=== PATIENT | female | born 1955 | race African-American/Black ===

== ENCOUNTER 2016-05-03 17:22 | Emergency (ER) | payer OTHER ==
[~2016-05-03] VITALS: Ht 162.6 cm; Wt 104.3 kg
[~2016-05-03 17:22] MED LIST: AMITRIPTYLINE100 M2 PO; BACTRIM DS 8001 TAB PO; CIPROFLOXACIN500 MG PO; CYMBALTA 30 MG30 MG PO; FLEXERIL 5MG TAB5 MG PO; IBUPROFEN600 M1 PO; INDOMETHACIN50 M1 PO; KEFLEX500 MG PO; LIDODERM 5% PAT1 PAT TOP; LISINOPRIL10 MG PO; LISINOPRIL40 M1 PO; LORAZEPAM0.5 MG PO; METFORMIN HCL500 M3 PO; METFORMIN1000 MG PO; MOBIC 15MG15 MG PO; NEURONTIN300 MG PO; NEXIUM40 M1 PO; NORVASC5 M1 PO; OXYCODONE HCL5 M1 PO; PANTOPRAZOLE SO40 MG PO; PAXIL20 MG PO; PERCOCET 5-3251 EACH PO; PREDNISONE20 M1 PO; PRILOSEC40 MG PO; PROAIR HFA0.09 MG/Ac PO; PROAIR HFA8.5 GM INH; ROXICODONE5 MG PO; TEMAZEPAM30 MG PO; TRAMADOL50 MG PO; ZYPREXA2.5 MG PO
[2016-05-03] MEDS ORDERED: LORAZEPAM0.5 M1 PO (18:17)
[2016-05-03] MEDS ORDERED: JANUVIA25 M1 PO (18:17)
[2016-05-03] MEDS ORDERED: PRAVASTATIN SOD20 M2 PO (18:17)
[2016-05-03] MEDS ORDERED: VITAMIN D2000 UNI1 PO (18:17)
--- NOTE | 2016-05-03 18:48 | ED GENERAL ADULT ---
History of Present Illness General Chief Complaint: General Adult Stated Complaint: CHEST PAIN,CHEST CONGESTION,BODY PAIN Source: patient Exam Limitations: no limitations Vital Signs & Intake/Output Vital Signs & Intake/Output Vital Signs Date Time Temp Pulse Resp B/P Pulse O2 O2 Flow FiO2 Ox Delivery Rate 05/037 97.2 75 18 178/81 98 Room Air 05/03 2126 97.6 75 18 150/82 100 Room Air 05/03 1938 97.0 82 18 150/82 98 Room Air 05/03 1926 Room Air 05/03 1736 180/110 05/03 1735 97.9 90 22 178/100 96 Room Air Allergies Coded Allergies: fentanyl (Intermediate, RASH 01/19/16) Reconcile Medications Albuterol Sulfate (Proair Hfa) 8.5 GM HFA.AER.AD RESPIRATORY (Reported) AMITRIPTYLINE HCL (Amitriptyline HCl) 100 MG TAB 100 MG PO QHS DEPRESSION ( Reported) Amlodipine (Norvasc 5MG Tab) 5 MG TAB 1 TAB PO DAILY HTN (Reported) Cholecalciferol (Vitamin D3) (Vitamin D) 2,000 UNIT TABLET 1 TAB PO DAILY SUPPLEMENT (Reported) Esomeprazole (Nexium) 40 MG CAP 1 CAP PO DAILY GI (Reported) Indomethacin 50 MG CAPSULE 1 CAP PO PRN UNKNOWN (Reported) with food Lisinopril 40 MG TAB 1 TAB PO DAILY BLOOD PRESSURE (Reported) Lorazepam 0.5 MG TABLET 1 TAB PO QPM SLEEP/ANXIETY (Reported) Metformin Hydrochloride (Metformin HCl) 500 MG TAB 1 TAB PO DAILY DIABETES ( Reported) Pravastatin Sodium 20 MG TABLET 1 TAB PO DAILY CHOLESTEROL (Reported) Sitagliptin Phosphate (Januvia) 25 MG TABLET 1 TAB PO DAILY DM (Reported) Triage Note: PT STATES HE HAS PAIN ALL OVER THAT STARTED ABOUT 3 DAYS AGO. Triage Nurses Notes Reviewed? yes Onset: Abrupt Duration: day(s): (4) Timing: recent history Injury Environment: home Severity: moderate Modifying Factors: Worsens With: movement, other (TOUCH). Associated Symptoms: CHEST PAIN, BACK PAIN HPI: This is a 61-year-old female presents to the ER with chief complaint of 4 day history of neck pain, back pain, chest pain. She states any where she took Duricef it hurts. Complains of some shortness of breath with exertion. Denies any fever or chills. Denies any sick contacts. History of hypertension and diabetes. Patient found to be hypertensive in triage. She states she is compliant with her medications. She has not tried anything at home for pain. She is on chronic amitriptyline for neuropathy. (ROXANN FUENTES MD) Past History Travel History Traveled to [place] past 21 day No Medical History Any Pertinent Medical History? 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 No (ROXANN FUENTES MD) Review of Systems Review of Systems Constitutional: Denies: chills, fever. EENTM: Reports: no symptoms. Respiratory: Denies: cough, short of breath, sputum production. Cardiovascular: Reports: chest pain. Denies: palpitations. GI: Reports: no symptoms. Genitourinary: Reports: no symptoms. Musculoskeletal: Reports: back pain. Skin: Reports: no symptoms. Neurological/Psychological: Reports: anxiety. Hematologic/Endocrine: Denies: bruising, bleeding, polyuria, polydipsia. Immunologic/Allergic: Denies: splenectomy. All Other Systems: Reviewed and Negative (ROXANN FUENTES MD) Physical Exam Physical Exam General Appearance: well developed/nourished, no apparent distress, alert, awake , mild distress, obese Head: atraumatic, normal appearance Eyes: Bilateral: normal appearance, PERRL, EOMI. Ears, Nose, Throat: normal pharynx Neck: normal inspection, supple, full range of motion Respiratory: normal breath sounds, no respiratory distress, CHEST TENDER TO PALPATION Cardiovascular: regular rate/rhythm Peripheral Pulses: 2+ radial (R), 2+ radial (L) Gastrointestinal: normal bowel sounds Neurologic/Psych: awake, alert, oriented x 3 Skin: intact, normal color, warm/dry Core Measures ACS in differential dx? Yes CVA/TIA Diagnosis: No Severe Sepsis Present: No Septic Shock Present: No (ROXANN FUENTES MD) Progress Differential Diagnoses I considered the following diagnoses in my evaluation of the patient: [INFLUENZA , AMI, ACS, PE, VIRAL SYNDROME, RHABDO] Plan of Care: Orders Procedure Date/time Status TROPONIN LEVEL 05/03 1846 Complete WESTERGREN SED RATE 05/03 1846 Complete D-DIMER 05/03 1846 Complete COMPREHENSIVE METABOLIC PANEL 05/03 1846 Complete CREATINE PHOSPHOKINASE 05/03 1846 Complete CBC WITHOUT DIFFERENTIAL 05/03 1846 Complete RAPID VIRAL INFLUENZA A 05/03 175 Complete EKG 05/03 172 Active Laboratory Tests 05/03/161911: Anion Gap 9, Estimated GFR > 60, BUN/Creatinine Ratio 14.4, Glucose 81, Calcium 9.8, Total Bilirubin 0.4, AST 22, ALT 27, Alkaline Phosphatase 63, Creatine Kinase 177 H, Troponin I 0.01, Total Protein 7.1, Albumin 4.0, Globulin 3.1, Albumin/Globulin Ratio 1.3 05/03/161846: D-Dimer 694 H, CBC w Diff NO MAN DIFF REQ, RBC 3.56 L, MCV 87.9, MCH 29.1, RDW 14.6 H, MPV 9.3, Gran % 46.7, Lymphocytes % 42.7, Monocytes % 8.8, Eosinophils % 1.0, Basophils % 0.8, Absolute Granulocytes 3.3, Absolute Lymphocytes 3.0, Absolute Monocytes 0.6, Absolute Eosinophils 0.1, Absolute Basophils 0.1, PUBS MCHC 33.1, ESR Westergren 47 H Initial ED EKG: NSR Hand-Off Endorsed To: BRITTANI ALMAGUER MD Endorsed Time: 1899 Pending: labs, other (REEVALUATION) (ROXANN FUENTES MD) Differential Diagnoses I considered the following diagnoses in my evaluation of the patient: Diagnostic Imaging: Viewed by Me: Radiology Read. Discussed w/RAD: Radiology Read. CXR Impression: Suboptimal exam. Findings suggestive of left lower lobe airspace disease. (BRITTANI ALMAGUER MD) Departure Departure Condition: Stable Referrals: SHARIF PASTOR (PCP/Family) Departure Forms: Customer Survey General Discharge Information (ROXANN FUENTES MD) Departure Time of Disposition: 2253 Disposition: HOME OR SELF CARE Clinical Impression Primary Impression: Pneumonia Qualifiers: Pneumonia type: due to unspecified organism Laterality: left Lung location: lower lobe of lung Qualified Code: J18.1 - Lobar pneumonia, unspecified organism Secondary Impressions: Musculoskeletal pain Prescriptions: Current Visit Scripts Azithromycin (Zithromax) 1 TAB PO DAILY #4 TAB Prednisone 1 TAB PO BID #10 TAB Tramadol HCl (Ultram) 1-2 TAB PO Q6PRN PRN severe pain #30 TAB Baclofen 1 TAB PO TIDPRN PRN muscle spasm/strain #30 TAB (ROSINA RADFORD,BRITTANI) Critical Care Note Critical Care Note Critical Care Time: non-applicable (ALFREDO RADFORD,ROXANN)
[2016-05-03 19:21] LABS: ABSOLUTE BASOPHIL COUNT 0.1 /CUMM (0.0-0.2); ABSOLUTE EOSINOPHIL COUNT 0.1 /CUMM (0.0-0.7); ABSOLUTE GRANULOCYTE CT 3.3 /CUMM (1.4-6.5); ABSOLUTE MONOCYTE COUNT 0.6 /CUMM (0.10-0.60); BASOPHIL % 0.8 % (0.0-2.0); GRANULOCYTE % 46.7 % (42.2-75.2); HEMATOCRIT 31.3 % (37-47); MEAN CORPUSCULAR HGB 29.1 PG (27.0-31.0); MEAN CORPUSCULAR HGB CONC 33.1 G/DL (33.0-37.0); MEAN CORPUSCULAR VOLUME 87.9 FL (81.0-99.0); MEAN PLATELET VOLUME 9.3 FL (7.4-10.4); PLATELET COUNT 172 /CUMM (130-400); RBC DISTRIBUTION WIDTH 14.6 % (11.5-14.5); RED BLOOD CELL CT 3.56 /CUMM (4.20-5.40)
--- NOTE | 2016-05-03 22:52 | RADIOLOGY REPORT ---
EXAMINATION: XR CHEST CLINICAL INFORMATION: Fever, chest pain COMPARISON: April 04, 2015 chest x-ray TECHNIQUE: 2 views of the chest were obtained. FINDINGS: The cardiomediastinal silhouette is normal. Evaluation of pulmonary parenchyma is limited on frontal view due to presence of motion artifact. There is suggestion of retrocardiac/left lung base airspace disease. No pleural effusions or pneumothorax. Partial visualization of lower cervical spine postsurgical changes. IMPRESSION: Suboptimal exam. Findings suggestive of left lower lobe airspace disease. Clinical correlation for pneumonia is suggested. Consider repeat PA chest x-ray.
[2016-05-03 22:57] VITALS: BP 178/81
[2016-05-03] MEDS ORDERED: ULTRAM50 M1 PO (22:58)
[2016-05-03] MEDS ORDERED: PREDNISONE20 M1 PO (22:58)
[2016-05-03] MEDS ORDERED: ZITHROMAX250 M2 PO (22:58)
[2016-05-03] MEDS ORDERED: BACLOFEN10 M1 PO (22:58)
== END 2016-05-03 23:19 ==
LOC: ERH 17:22
PROVIDERS: Emergency Medicine
DX: R07.9 Chest pain, unspecified (principal); J18.9 Pneumonia, unspecified organism
CPT/HCPCS: 87804; 87804-59; 93005; 93010; 96372; J1885

== ENCOUNTER 2016-05-12 19:25 | Inpatient (IN) | payer OTHER ==
[~2016-05-12] VITALS: Ht 162.6 cm; Wt 106.6 kg
[~2016-05-12 19:25] MED LIST changes: +BACLOFEN10 M1 PO; +JANUVIA25 M1 PO; +LORAZEPAM0.5 M1 PO; +PRAVASTATIN SOD20 M2 PO; +ULTRAM50 M1 PO; +VITAMIN D2000 UNI1 PO; +ZITHROMAX250 M2 PO
--- NOTE | 2016-05-12 19:27 | NUR ---
INFORMED WAITING PERFORMED.
--- NOTE | 2016-05-12 19:54 | NUR ---
PT TO ED FOR DIZZINESS, CHEST PAIN, PALPITATIONS AND SOB X 2 DAYS. ALSO C/O CHRONIC L KNEE PAIN.
--- NOTE | 2016-05-12 19:55 | NUR ---
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 PT TO GO TO ROOM 2 SHORTLY.
--- NOTE | 2016-05-12 20:18 | NUR ---
IV ACCESS ESTABLISHED, #[address] DAUGHERTY AT BEDSIDE IVF N/S INFUSION INITIATED PER ORDERS
--- NOTE | 2016-05-12 20:21 | ED GI/GU/ABDOMINAL COMPLAINT ---
History of Present Illness General Chief Complaint: General Adult Stated Complaint: LIGHTHEADED,DIZZINESS, SEEING SPOTS X TODAY Source: patient, family, old records Exam Limitations: no limitations Vital Signs & Intake/Output Vital Signs & Intake/Output Vital Signs Date Time Temp Pulse Resp B/P Pulse O2 O2 Flow FiO2 Ox Delivery Rate 05/12 2335 98.5 95 20 133/70 95 Room Air 05/121 97.7 85 18 100/70 96 Room Air 05/12 2106 87 102/60 05/12 2038 104/64 05/12 2024 114/57 05/12 2024 91 18 100/62 96 Room Air 05/12 2013 96 Room Air Room Air 05/12 1942 96.5 95 18 78/56 97 Room Air Allergies Coded Allergies: fentanyl (Intermediate, RASH 01/19/16) Reconcile Medications Albuterol Sulfate (Proair Hfa) 8.5 GM HFA.AER.AD 2 PUF INH PRN RESPIRATORY ( Reported) Amitriptyline HCl 150 MG TABLET 1 TAB PO QPM MENTAL HEALTH (Reported) Amlodipine Besylate (Norvasc) 5 MG TABLET 1 TAB PO DAILY BP (Reported) Cholecalciferol (Vitamin D3) (Vitamin D) 2,000 UNIT TABLET 1 TAB PO DAILY SUPPLEMENT (Reported) Esomeprazole (Nexium) 40 MG CAPSULE.DR 1 CAP PO DAILY GI (Reported) Lisinopril 40 MG TABLET 1 TAB PO DAILY BP (Reported) Lorazepam 0.5 MG TABLET 1 TAB PO QPM SLEEP/ANXIETY (Reported) Metformin HCl 500 MG TABLET 1 TAB PO DAILY DM (Reported) Pravastatin Sodium 20 MG TABLET 1 TAB PO DAILY CHOLESTEROL (Reported) Pregabalin (Lyrica) (Unknown Strength) CAPSULE (Unknown Dose) UNKNOWN ( Reported) Sitagliptin Phosphate (Januvia) 25 MG TABLET 1 TAB PO DAILY DM (Reported) Triage Note: PT TO ED FOR DIZZINESS, CHEST PAIN, PALPITATIONS AND SOB X 2 DAYS. ALSO C/O CHRONIC L KNEE PAIN. Triage Nurses Notes Reviewed? yes ? N Is pt currently ? No HPI: Past 3 days the patient has been feeling lightheaded especially when she stands up. Patient states that there've been a few episodes where she is felt like she was given a pass out but she has not passed out. Patient states that she is also having dyspnea on exertion even to the point that she gets short of breath when she is speaking. Patient denies any chest pain or orthopnea. She is ago she developed a sharp stabbing pain in her left knee. The pain is constant. The pain is 10 out of 10. There is no radiation of the pain. There are no aggravating or mitigating factors. There is no weakness. Today she developed diffuse abdominal pain. The pain is constant. The pain is sharp and stabbing in nature. There is no radiation outside of the abdominal area. The pain is also 10 out of 10. Patient states that she has had nausea but no vomiting. Past History Travel History Traveled to [place] past 21 day No Medical History Any Pertinent Medical History? 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 No Review of Systems Review of Systems Constitutional: Reports: no symptoms. EENTM: Reports: no symptoms. Respiratory: Reports: see HPI, short of breath. Cardiovascular: Reports: no symptoms. GI: Reports: see HPI, abdominal pain, nausea. Genitourinary: Reports: no symptoms. Musculoskeletal: Reports: see HPI, joint pain. Skin: Reports: no symptoms. Neurological/Psychological: Reports: no symptoms. Hematologic/Endocrine: Reports: no symptoms. Immunologic/Allergic: Reports: no symptoms. All Other Systems: Reviewed and Negative Physical Exam Physical Exam General Appearance: well developed/nourished, alert, awake, anxious, moderate distress Head: atraumatic, normal appearance Eyes: Bilateral: PERRL, EOMI. Ears, Nose, Throat, Mouth: hearing grossly normal, DRY MUCOUS MEMBRANES Neck: normal inspection, supple, full range of motion Respiratory: normal breath sounds, chest non-tender, no respiratory distress, lungs clear Cardiovascular: regular rate/rhythm, normal peripheral pulses Gastrointestinal: normal bowel sounds, soft, non-tender, no organomegaly, NO TENDERNESS, GUARDING OR REBOUND. Rectal: bROWN STOOL HEME-NEGATIVE Back: normal inspection, normal range of motion Extremities: normal range of motion, pelvis stable, NO PEDAL EDEMA, NO SWELLING TO THE LEFT KNEE, FULL RANGE OF MOTION Neurologic/Psych: no motor/sensory deficits, awake, alert, oriented x 3, normal mood/affect Skin: intact, normal color, warm/dry Core Measures ACS in differential dx? Yes ASA ordered for poss ACS? No-ACS ruled out Severe Sepsis Present: No Septic Shock Present: No Progress Differential Diagnosis: AAA, AMI, appendicitis, biliary colic, cholecystitis, diverticulitis, gastritis, hepatitis, ischemic bowel, inflamm bowel dis, pancreatitis, SBO, UTI/pyelo Plan of Care: Orders Procedure Date/time Status Consistent Carbohydrate 3 05/13 B Active TROPONIN LEVEL 05/13 0900 Active EKG 05/13 0900 Active US-EXT BILAT VENOUS DOPPLER 05/13 0800 Active ECHOCARDIOGRAM 05/13 0800 Active TROPONIN LEVEL 05/13 0300 Active ICU LAB BUNDLE 05/13 0300 Active CBC WITHOUT DIFFERENTIAL 05/13 0300 Active EKG 05/13 0300 Active Pathway - chart 05/12 2331 Active Code Status 05/12 2331 Active XRY-PORTABLE CHEST XRAY 05/12 2247 Active Add-on Test (ER Only) 05/12 2247 Active Add-on Test (ER Only) 05/12 2230 Active Patient Data 05/12 2219 Active Intake & Output 05/12 2218 Active Admit to inpatient 05/12 2215 Active Add-on Test (ER Only) 05/12 211 Active PARTIAL THROMBOPLASTIN TIME 05/12 2113 Complete PROTHROMBIN TIME 05/12 2113 Complete D-DIMER 05/12 2113 Complete LIPASE 05/12 2019 Complete B-TYPE NATRIURETIC PEP (BNP) 05/12 2020 Complete AMYLASE 05/12 2020 Complete Telemetry/Information Systems Security Developer 05/12 2011 Active URINALYSIS 05/12 2011 Active TROPONIN LEVEL 05/12 2011 Complete COMPREHENSIVE METABOLIC PANEL 05/12 2011 Complete CBC WITHOUT DIFFERENTIAL 05/12 2011 Complete EKG 05/12 1956 Active TRC EVALUATION (GEN) 05/12 UNK Active CONTIN. POSITIVE AIRWAY PRESS 05/12 UNK Active XRY-KNEE COMPLETE LEFT 05/12 UNK Active House Staff 05/12 UNK Active Lab Add-on Test 05/12 UNK Active Vital Signs 05/12 UNK Active Hemoccult 05/12 UNK Active FingerStick- Glucose 05/12 UNK Active Current Medications Sig/Ziyad Start time Last Medication Dose Stop Time Status Admin Lorazepam 0.5 MG QPM 05/13 2200 AC (Ativan) 05/20 2158 Pravastatin Sodium 20 MG 1700 05/13 1700 AC (Pravachol) Insulin Aspart 0 TIDAC 05/13 0800 AC (NovoLOG) Omeprazole 40 MG DAILY AC 05/13 0700 AC (Prilosec) Albuterol Sulfate 2 PUF Q6-PRN PRN 05/12 2345 AC (Ventolin) Acetaminophen 650 MG Q6P PRN 05/12 2330 AC (Tylenol) Acetaminophen 1,000 MG Q6P PRN 05/12 2330 AC (Ofirmev) Morphine Sulfate 1 MG Q6PRN PRN 05/12 2330 AC (Morphine) Laboratory Tests 05/12/162113: PT 11.9, INR 1.13, APTT 27, D-Dimer 2048 H 05/12/16 2020: Amylase Cancelled, Lipase Cancelled 05/12/16 2020: Anion Gap 9, Estimated GFR 33 L, BUN/Creatinine Ratio 13.8, Glucose 116 H, Calcium 9.2, Total Bilirubin 0.4, AST 17, ALT 29, Alkaline Phosphatase 60, Troponin I < 0.01, Kif-H-Nrhslkqaeem Pept 41.4, Total Protein 6.4, Albumin 3.4 L, Globulin 3.0, Albumin/Globulin Ratio 1.1, Amylase 65, Lipase 84, CBC w Diff NO MAN DIFF REQ, RBC 4.03 L, MCV 88.1, MCH 29.3, RDW 14.8 H, MPV 9.3, Gran % 58.7, Lymphocytes % 32.4, Monocytes % 7.7, Eosinophils % 0.9, Basophils % 0.3, Absolute Granulocytes 7.0 H, Absolute Lymphocytes 3.8 H, Absolute Monocytes 0.9 H, Absolute Eosinophils 0.1, Absolute Basophils 0, PUBS MCHC 33.2 Initial ED EKG: NSR, nonspecific ST T wave chg Prior EKG: unchanged Rhythm Strip: normal sinus rhythm Departure Departure Disposition: STILL A PATIENT Condition: Guarded Clinical Impression Primary Impression: Acute renal failure Secondary Impressions: Elevated d-dimer, Hypotension Referrals: SHARIF PASTOR (PCP/Family) Departure Forms: Customer Survey General Discharge Information Admission Note Spoke With: ZURDO GAMING MD Documentation of Exam: Documentation of any treatments & extenuating circumstances including Concerns Regarding Discharge (functional status, medication knowledge or non-compliance, living conditions, etc.) that warrant an admission rather than observation: [ICU admission, IV fluids, telemetry monitoring, VQ scan, echocardiogram, Doppler of her lower extremities, renal consultation] Critical Care Note Critical Care Note Critical Care Time: mins: (45 MIN)
[2016-05-12 20:29] LABS: ABSOLUTE BASOPHIL COUNT 0 /CUMM (0.0-0.2); ABSOLUTE EOSINOPHIL COUNT 0.1 /CUMM (0.0-0.7); ABSOLUTE LYMPH COUNT 3.8 /CUMM (1.2-3.4); ABSOLUTE MONOCYTE COUNT 0.9 /CUMM (0.10-0.60); BASOPHIL % 0.3 % (0.0-2.0); EOSINOPHIL % 0.9 % (0-5); GRANULOCYTE % 58.7 % (42.2-75.2); HEMATOCRIT 35.5 % (37-47); MEAN CORPUSCULAR HGB 29.3 PG (27.0-31.0); MEAN CORPUSCULAR HGB CONC 33.2 G/DL (33.0-37.0); MEAN CORPUSCULAR VOLUME 88.1 FL (81.0-99.0); MEAN PLATELET VOLUME 9.3 FL (7.4-10.4); PLATELET COUNT 185 /CUMM (130-400); RBC DISTRIBUTION WIDTH 14.8 % (11.5-14.5); RED BLOOD CELL CT 4.03 /CUMM (4.20-5.40); WHITE BLOOD CELL COUNT 11.8 /CUMM (4.8-10.8)
[2016-05-12] MEDS ORDERED: AMITRIPTYLINE150 M2 PO (20:55)
[2016-05-12] MEDS ORDERED: LYRICA100 M1 PO (20:55)
--- NOTE | 2016-05-12 21:10 | NUR ---
PT MEDICATED WITH ZOFRAN PER ORDERS
--- NOTE | 2016-05-12 22:17 | NUR ---
DR DAUGHERTY AT BEDSIDE DISCUSSING RESULTS AND POC PT MEDICATED WITH 2 MG IV MORPHINE PER VERBAL ORDERS DR DAUGHERTY R/T B/P 100/70. 2ND LITER N/S INFUSION INITIATED PER ORDERS.
--- NOTE | 2016-05-12 22:18 | NUR ---
HOUSE STAFF AT BEDSIDE FOR EVAL
--- NOTE | 2016-05-12 22:34 | NUR ---
PT HAS BED #104-1
--- NOTE | 2016-05-12 22:35 | History & Physical ---
LOIDA TOSCANO 05/12/16 2234: General Information and HPI MD Statement: I have seen and personally examined CARTER LUO and documented this H&P. The patient is a 61 year old F who presented with a patient stated chief complaint of [dizziness and shortness of breath]. Source of Information: patient, family, old records Exam Limitations: no limitations History of Present Illness: This is a 61 years old lady with past medical history significant for non- insulin-dependent diabetes mellitus, depression, hypertension, GERD, obstructive sleep apnea not frequent use of BiPAP, asthma who presented with 2 days history of progressive shortness of breath that started abruptly. The patient reports to have pain in fairly good state of health able to do her daily chores without any restrictions when suddenly 2 days ago started having shortness of breath especially on exertion. She reports to feel winded even when she walks with in her house. Patient has history of asthma for which she intermittently takes albuterol but denies taking albuterol more than usual or experiencing the chest tightness associated with asthma which she is familiar off. He denies postural relation in shortness of breath she has been using one pillow and this has not changed even in the past 2 days when she started experiencing shortness of breath. Patient denies any cough, runny nose or sick contacts she has no fevers no chills associated with the shortness of breath. She reports reduced appetite but denies any nausea or vomiting. Miss of breath the patient has been having blurring of vision and dizziness most pronounced when she stands up from sitting or laying position. Patient reports to take her medication as instructed has a home visiting nurse who goes daily and helps with her medication. She reports that her sugars are well controlled in the morning having between 84 and 104 and she reports to take her medications as instructed. Allergies/Medications Allergies: Coded Allergies: fentanyl (Intermediate, RASH 01/19/16) Home Med list Albuterol Sulfate (Proair Hfa) 8.5 GM HFA.AER.AD 2 PUF INH PRN RESPIRATORY ( Reported) Amitriptyline HCl 150 MG TABLET 1 TAB PO QPM MENTAL HEALTH (Reported) Amlodipine Besylate (Norvasc) 5 MG TABLET 1 TAB PO DAILY BP (Reported) Cholecalciferol (Vitamin D3) (Vitamin D) 2,000 UNIT TABLET 1 TAB PO DAILY SUPPLEMENT (Reported) Esomeprazole (Nexium) 40 MG CAPSULE.DR 1 CAP PO DAILY GI (Reported) Lisinopril 40 MG TABLET 1 TAB PO DAILY BP (Reported) Lorazepam 0.5 MG TABLET 1 TAB PO QPM SLEEP/ANXIETY (Reported) Pravastatin Sodium 20 MG TABLET 1 TAB PO DAILY CHOLESTEROL (Reported) Sitagliptin Phosphate (Januvia) 25 MG TABLET 1 TAB PO DAILY DM (Reported) Past History Travel History Traveled to [place] past 21 day No Medical History Neurological: NONE EENT: NONE Cardiovascular: hypertension Respiratory: asthma Gastrointestinal: GERD, HEPATITIS C TREATED Hepatic: NONE Renal: NONE Musculoskeletal: osteoarthritis Psychiatric: depression Endocrine: diabetes Blood Disorders: NONE Cancer(s): NONE 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 self Services at Home: Home Health Aide Primary Language: [place] Citizen ETOH Use: denies use Illicit Drug Use: denies illicit drug use Functional Ability ADLs Independent: dressing, eating, toileting, bathing. Ambulation: independent IADLs Independent: shopping, housework, finances, food prep, telephone, transportation. Unknown: medication admin. Review of Systems Review of Systems Constitutional: Denies: chills, fever. EENTM: Reports: blurred vision, visual changes. Cardiovascular: Reports: palpitations. Denies: chest pain, orthopena, peripheral edema. Respiratory: Reports: short of breath, wheezing. Denies: cough, stridor. GI: Denies: no symptoms. Genitourinary: Denies: no symptoms. Musculoskeletal: Reports: joint pain. Skin: Denies: no symptoms. Neurological/Psychological: Reports: anxiety. Hematologic/Endocrine: Denies: no symptoms. All Other Systems: Reviewed and Negative Exam & Diagnostic Data Last 24 Hrs of Vital Signs/I&O Vital Signs Date Time Temp Pulse Resp B/P Pulse O2 O2 Flow FiO2 Ox Delivery Rate 05/125 98.5 95 20 133/70 95 Room Air 05/12 2140 97.7 85 18 100/70 96 Room Air 05/12 2106 87 102/60 05/12 2038 104/64 05/12 2024 114/57 02/13 2025 91 18 100/62 96 Room Air 05/12 2013 96 Room Air Room Air 05/12 1943 96.5 95 18 78/56 97 Room Air Intake & Output 05/13 0800 05/13 0000 05/12 1600 Intake Total 1000 Output Total Balance 1000 Intake, IV 1000 Patient 205 lb Weight Physical Exam General Appearance Alert, Oriented X3, Cooperative, No Acute Distress Skin No Rashes, No Breakdown HEENT Atraumatic, PERRLA, EOMI Neck Supple, No JVD, No thryomegaly Cardiovascular Regular Rate, Normal S1, Normal S2, No Murmurs Lungs mild expiratory wheeze Abdomen Normal Bowel Sounds, Soft, No Tenderness Neurological Normal Gait, Normal Speech, Strength at 5/5 X4 Ext, Normal Tone Extremities No Clubbing, No Cyanosis, No Edema Vascular Normal Pulses, Pulses Symmetrical Last 24 Hrs of Labs/Stefan: Laboratory Tests 05/12/162113: PT 11.9, INR 1.13, APTT 27, D-Dimer 2047 H 05/12/162019: Amylase Cancelled, Lipase Cancelled 05/12/16 2020: Anion Gap 9, Estimated GFR 33 L, BUN/Creatinine Ratio 13.8, Glucose 116 H, Lactic Acid Pending, Calcium 9.2, Iron Pending, TIBC Pending, Ferritin Pending, Total Bilirubin 0.4, AST 17, ALT 29, Alkaline Phosphatase 60, Troponin I < 0.01, Aht-J-Fosyhnoaoez Pept 41.4, Total Protein 6.4, Albumin 3.4 L, Globulin 3.0, Albumin/Globulin Ratio 1.1, Amylase 65, Lipase 84, CBC w Diff NO MAN DIFF REQ, RBC 4.03 L, MCV 88.1, MCH 29.3, RDW 14.8 H, MPV 9.3, Gran % 58.7, Lymphocytes % 32.4, Monocytes % 7.7, Eosinophils % 0.9, Basophils % 0.3, Absolute Granulocytes 7.0 H, Absolute Lymphocytes 3.8 H, Absolute Monocytes 0.9 H, Absolute Eosinophils 0.1, Absolute Basophils 0, PUBS MCHC 33.2 Diagnostic Data EKG Results Sinus rhythm, normal axis, regular no ST-T wave changes Other Results D-dimer 2047 Assessment/Plan Assessment: This is a 61 years old lady with [id number]-crpaumerb diabetes mellitus, hypertension, hyperlipidemia, depression, SANJUANITA, asthma who is presenting with 2 days history of shortness of breath and palpitations she has no orthopnea or lower limb edema she denies any fever or chills cough or excessive wheezing. On presentation the patient was hypotensive with systolic pressure of 70, no JVD, no edema mild expiratory wheezes had increased creatinine of 1.6 and a significantly elevated d-dimer is off 2047. Problem list Pulmonary embolism Rule out ACS Acute kidney injury Diabetes mellitus Hypotension Will admit the patient to the intensive care unit, vital signs every hourly, monitor input output, patient blood pressure improved after 1 L of normal saline continue to monitor blood pressure while holding blood pressure medications, review and consider restarting when blood pressures normalized, patient started on heparin drip, review renal function and consider CTA or VQ scan in a.m. Doppler ultrasound of bilateral lower limbs, echocardiogram to rule out right heart strain, R/O ACS: Serial troponin and EKG SANDRA: Hold SORAIDA Inhibitors, gentle hydration with normal saline at 100 mL per hour , add lactic acid to admission labs and if positive continue to trend his lactic acid, recheck renal function, I and O's. Diabetes mellitus: Old oral antidiabetic medications, Accu-Cheks, consistent carbohydrate 3 diet, NovoLog sliding scale, HbA1c on the admission bloods. Asthma: Continue albuterol, TRC nebs SANJUANITA: CPAP at night GERD: Continue Nexium Depression: Patient reports no longer taking amitriptyline, from medications Anxiety: Continue lorazepam 0.5 mg QPM when necessary, continue with medication CODE STATUS: DNI/R As Ranked By This Provider Problem List: 1. Diabetes mellitus 2. SHORTNESS OF BREATH 3. Acute renal failure 4. Hypotension 5. Elevated d-dimer Core Measures/Miscellaneous Acute Coronary Syndrome ACS Diagnosis: No Cerebrovascular Accident CVA/TIA Diagnosis: No Congestive Heart Failure CHF Diagnosis: No Venous Thromboembolism VTE Risk Factors: Acute medical illness, Age > 40 VTE Prophylaxis Ordered Inpt: Pharm- Heparin No Mech VTE prophylaxis d/t: No contraindications No VTE Pharm Prophylaxis d/t: No contraindications VTE Diagnosis: Yes VTE Type: Pulmonary Embolism VTE Confirmed by (Test): NONE Severe Sepsis Severe Sepsis Present: No Septic Shock Septic Shock Present: No Miscellaneous Documentation Attending Case Discussed With: ZURDO GAMING MD Primary Care Physician: SHARIF PASTOR Patient sees these Specialists None Level of Patient Care: Critical Care (CRI) Resident Review Statement Resident Statement: examined this patient, My notes above ZURDO GAMING 05/13/16 0316: Attending MD Review Statement Attending Statement Attending MD Statement: examined this patient, discuss w/resident/PA/RECREATION TEACHER, agreed w/resident/PA/RECREATION TEACHER, discussed with family, reviewed EMR data (avail), reviewed images, amended to note Attending Assessment/Plan: Cc: Sudden onset SOB, choking sensation, palpitations, lightheadedness PMH: DM, HTN, depression, GERD, questionable history of asthma, ex-smoker, SANJUANITA on CPAP (noncompliant). Patient came in ER for feeling very short of breath, palpitations, dizziness after waking up this morning. She felt that she is choking and could not take breath. Of note patient had been in ER on May 03 for chest pain, chest congestion and body aches. Patient was discharged on azithromycin, prednisone, tramadol for left lower lobe pneumonia. Since then patient had been having cough unchanged, dyspnea on exertion. Chest pain resolved. Has been lethargic since last 2 days, feels lightheaded when stands up. Patient also having worsening of left knee pain since last 4 days, ambulating less because of that and shortness of breath. She also complains of some diffuse fullness in her abdomen but denies any constipation or diarrhea, and low back pain. She says that urinary frequency is decreased in volume is decreased as well, complains of nausea but no vomiting. Vitals: Temperature at presentation 96.5, pulse 95, blood pressure 78/56 saturating 97% on room air. Blood pressure improved after 2 L bolus to 100/62. Still significantly orthostatic. On examination: A O 3, no respiratory distress , anxious, neck supple, no JVD, mucosa dry, no focal neurological deficit, CVS: S1-S2, RRR. RS: Diffuse intermittent wheezing bilaterally. Abdomen: Soft, NT, ND , bowel sounds present. Left knee examination does not elicit any tenderness erythema or joint swelling or effusion. ROM intact. No bony tenderness. No pedal edema. Peripheral pulses and perfusion normal. Labs: WBC 11.8, neutrophils 58%, hemoglobin 11.8, creatinine 1.6 increased from 0.9 on May 03,, lactate 1.1, lipase 84, INR 1.13, d-dimer 2048 (increased from 695 on May 03). A and P #1 hypotension: Unclear etiology, patient does not have significant leukocytosis or fever for sepsis. Patient had been treated for pneumonia 10 days back. Volume contraction, dehydration can be causative factor. But given her sudden onset shortness of breath, lightheadedness, elevated d-dimer (2047) , PE cannot be excluded. CTA of chest or VQ scan cannot be obtained at this point for confirmatory diagnosis, EKG does not show any changes, patient is been started on heparin in ER, please continue heparin. Obtain BMP in a.m., if creatinine improved CTA chest can be obtained or else VQ scan should be obtained. Admit overnight in ICU for close monitoring of blood pressure given suspected PE, vitals every 1 to 2 hours. Obtain chest x-ray to look for worsening previous infiltrates, UA and culture if indicated. Repeat CBC in a.m. Hold oral antihypertensives. #2 acute kidney injury: Probably secondary to volume contraction, hypotension which may be contributing, continue aggressive hydration. Patient received 2 L NS bolus in ER, continue maintenance at 100 mL per hour. Bolus 500 mL at a time if persistently hypertensive. #3 DM: Hold oral hypoglycemics, continue sliding scale insulin with Accu-Cheks before meals and at bedtime #4 SANJUANITA: Continue bedtime CPAP tts 30 min
--- NOTE | 2016-05-12 22:48 | NUR ---
STUDY MANAGER ATTEMPTED TO DO PORTABLE XRAY, DEFERRED BY HOUSESTAFF EVALUATING PATIENT AT PRESENT.
--- NOTE | 2016-05-12 22:59 | NUR ---
ATTEMPTED TO CALL REPORT TO ICU WILL CALL BACK WHEN AVAILABLE
[2016-05-12 23:04] LABS: PT 11.9 SEC (9.4-12.5); PTT 27 SEC (25-37)
--- NOTE | 2016-05-12 23:27 | NUR ---
REPORT TO BRISSA CAMERON IN ICU REPORT TO BRISSA MONDRAGON IN ER PT MEDICATED WITH 5000 UNIT HEPARIN BOLUS AND IV GTT INITIATED AT 1300 UNITS/HR (26 MLS/HR) PER DISCUSSION WITH DR DAUGHERTY. PT AWAITING XRAY PRIOR TO TRANSPORT
--- NOTE | 2016-05-13 01:15 | NUR ---
TRANSPORTED TO ICU WITH RN
[2016-05-13 01:30] VITALS: BP 106/70
--- NOTE | 2016-05-13 01:30 | NUR ---
PATIENT ADMITTED TO 104 VIA STRETCHER FROM ER. PATIENT ALERT AND VEBALLY APPROPRIATE. MONITOR SINUS RHYTHM AT RATE OF 88. BJ=331/70. NO DYSPNEA NOTED. O2 SAT=93% ON ROOM AIR.LUNG SOUNDS CLEAR.PT TURNS SIDE TO SIDE INDEPENDENTLY.NO CHEST PAIN REPORTED.C/O PAIN IN L KNEE.XRAY DONE IN ER.HEPARIN DRIP INFUSING AT 26 ML/HR OR 14 UNITS/KG/HR.
--- NOTE | 2016-05-13 03:20 | Admission Certification ---
Admission Certification Certification Statement - As attending physician, I certify that at the time of - admission, based on clinical presentation, severity of - symptoms, need for further diagnostic testing and - therapeutic interventions, and risk of adverse outcomes - without in-hospital treatment, in my clinical assessment, - this patient requires an acute hospital stay for a minimum - of two nights or longer. I have also considered psychsocial - factors such as support system, advanced age, financial - issues, cognitive issues, and failed out-patient treatments, - past re-admission history, safety of patient, and lack of - compliance as applicable. Specific rationale supporting this admission is: Hypotension
--- NOTE | 2016-05-13 03:21 | RADIOLOGY REPORT ---
EXAMINATION: XR PORTABLE CHEST CLINICAL INFORMATION: Shortness of breath, cough COMPARISON: 05/03/2016 TECHNIQUE: Portable AP view of the chest was obtained. FINDINGS: There is mild elevation of the right hemidiaphragm. No region of consolidation is seen bilaterally. No evidence of pneumothorax, pleural effusion, or pulmonary edema. The cardiomediastinal contour is unremarkable. No acute osseous findings are seen. Fusion hardware is noted in the cervical spine. IMPRESSION: No acute findings identified.
--- NOTE | 2016-05-13 04:00 | NUR ---
PATIENT C/O BACK AND ABDOMINAL DISCOMFORT.MORPHINE 1 MG GIVEN IV. PRILOSEC GIVEN FOR C/O HEARTBURN.
[2016-05-13 04:15] LABS: ABSOLUTE BASOPHIL COUNT 0 /CUMM (0.0-0.2); ABSOLUTE EOSINOPHIL COUNT 0.1 /CUMM (0.0-0.7); ABSOLUTE LYMPH COUNT 3.3 /CUMM (1.2-3.4); ABSOLUTE MONOCYTE COUNT 0.7 /CUMM (0.10-0.60); BASOPHIL % 0.2 % (0.0-2.0); EOSINOPHIL % 1.2 % (0-5); GRANULOCYTE % 59.2 % (42.2-75.2); MEAN CORPUSCULAR HGB 29.1 PG (27.0-31.0); MEAN CORPUSCULAR VOLUME 88.4 FL (81.0-99.0); MEAN PLATELET VOLUME 9.6 FL (7.4-10.4); PLATELET COUNT 149 /CUMM (130-400); RBC DISTRIBUTION WIDTH 14.4 % (11.5-14.5); RED BLOOD CELL CT 3.64 /CUMM (4.20-5.40); WHITE BLOOD CELL COUNT 10.1 /CUMM (4.8-10.8)
[2016-05-13 04:21] LABS: HEMATOCRIT 32.2 % (37-47)
[2016-05-13 06:19] LABS: PTT 106 SEC (25-37)
--- NOTE | 2016-05-13 07:51 | Cons- CRCU ---
JULIO RADFORD,[place] 05/13/16 0751: General Information and HPI Consulting Request Date of Consult: 05/13/16 Requested By: ZURDO GAMING MD Reason for Consult: Shortness of breath, Low blood pressure Source of Information: patient Exam Limitations: no limitations History of Present Illness: 61 years-old lady with past medical history of hypertension, obstructive sleep apnea on occassional CPAP, questionable asthma not on inhalers, diabetes mellitus, GERD, depression, presented to the emergency department with complaints of worsening shortness of breath that started 2 days ago. Shortness of breath is associated with dizziness, occasional cough, without sputum production. She denies any chest pain, fall, palpitation, nausea, vomiting, ringing of ears, hearing difficulty but admits to subjective feeling of heat, sweating, weakness in the past few days. She also mentions that she has shortness of breath on exertion, walking short distances but not at rest as a long-term problem, which goes away with rest in about ten minutes. She denies any sick contacts, recent travel, exposure to dust or fumes/smoke, changes in bowel or bladder habit, nausea, vomiting, pain abdomen, swelling of legs. She has a home visiting nurse who comes 5 days a week 1 day through Thursday, and she is compliant with her medication. She denies any possibility of her taking double dose of medications either. Allergies/Medications Allergies: Coded Allergies: fentanyl (Intermediate, RASH 01/19/16) Home Med List: Albuterol Sulfate (Proair Hfa) 8.5 GM HFA.AER.AD 2 PUF INH PRN RESPIRATORY ( Reported) Amitriptyline HCl 150 MG TABLET 1 TAB PO QPM MENTAL HEALTH (Reported) Amlodipine Besylate (Norvasc) 5 MG TABLET 1 TAB PO DAILY BP (Reported) Cholecalciferol (Vitamin D3) (Vitamin D) 2,000 UNIT TABLET 1 TAB PO DAILY SUPPLEMENT (Reported) Esomeprazole (Nexium) 40 MG CAPSULE.DR 1 CAP PO DAILY GI (Reported) Lisinopril 40 MG TABLET 1 TAB PO DAILY BP (Reported) Lorazepam 0.5 MG TABLET 1 TAB PO QPM SLEEP/ANXIETY (Reported) Pravastatin Sodium 20 MG TABLET 1 TAB PO DAILY CHOLESTEROL (Reported) Sitagliptin Phosphate (Januvia) 25 MG TABLET 1 TAB PO DAILY DM (Reported) Review of Systems Review of Systems Constitutional: Reports: see HPI, diaphoresis, fever, malaise, weakness. Denies: chills, unexplained weight loss. EENTM: Reports: no symptoms. Cardiovascular: Reports: no symptoms, see HPI. Respiratory: Reports: see HPI, cough, short of breath. Denies: hemoptysis, orthopnea, sputum production, stridor, wheezing. GI: Reports: no symptoms. Genitourinary: Reports: no symptoms. Musculoskeletal: Reports: no symptoms. Skin: Reports: no symptoms. Neurological/Psychological: Reports: no symptoms. Hematologic/Endocrine: Reports: no symptoms. All Other Systems: Reviewed and Negative Past History Travel History Traveled to [place] past 21 day No Medical History Neurological: NONE EENT: NONE Cardiovascular: hypertension Respiratory: asthma Gastrointestinal: GERD, HEPATITIS C TREATED Hepatic: NONE Renal: NONE Musculoskeletal: osteoarthritis Psychiatric: depression Endocrine: diabetes Blood Disorders: NONE Cancer(s): NONE PASTE THINNER/Reproductive: NONE Surgical History Surgical History: LUMBAR AND CERVICAL SURGERY Family History Relations & Conditions If Any: Relation not specified for: *No pertinent family history Psychosocial History Where Do You Live? Home Who Do You Live With? self Services at Home: Home Health Aide Primary Language: Nepali Smoking Status: Never Smoked ETOH Use: denies use Illicit Drug Use: denies illicit drug use Functional Ability ADLs Independent: dressing, eating, toileting, bathing. Ambulation: independent IADLs Independent: shopping, housework, finances, food prep, telephone, transportation. Unknown: medication admin. Exam & Diagnostic Data Last 24 Hrs of Vital Signs/I&O Vital Signs Date Time Temp Pulse Resp B/P Pulse O2 O2 Flow FiO2 Ox Delivery Rate 05/13 0643 79 94 05/13 0510 77 100 05/13 0400 92 Room Air 05/13 0130 93 Room Air 05/13 0130 97.3 88 17 106/70 93 Room Air 05/13 0038 91 114/63 05/12 2335 98.5 95 20 133/70 95 Room Air 05/12 2141 97.7 85 18 100/70 96 Room Air 05/12 2106 87 102/60 05/12 2038 104/64 05/12 2024 114/57 05/12 2024 91 18 100/62 96 Room Air 05/12 2013 96 Room Air Room Air 05/12 1942 96.5 95 18 78/56 97 Room Air Intake & Output 05/13 1600 05/13 0800 05/13 0000 Intake Total 251 1000 Output Total Balance 251 1000 Intake, IV 151 1000 Intake, Oral 100 Patient 107.501 kg 92.986 kg Weight Physical Exam General Appearance: well developed/nourished, no apparent distress, anxious, obese Head: atraumatic, normal appearance Eyes: Bilateral: normal appearance, PERRL, EOMI. Ears, Nose, Throat: normal pharynx, normal ENT inspection, hearing grossly normal, moist mucus membranes Neck: normal inspection, supple, full range of motion Peripheral Pulses: 4+ radial (R), 4+ radial (L) Gastrointestinal: normal bowel sounds, soft Extremities: normal inspection, normal capillary refill, normal range of motion Neurologic/Psych: no motor/sensory deficits, awake, alert, oriented x 3, normal gait (gait not examined) Reflexes: 4+: bicep (R), bicep (L), knee (R), knee (L). Skin: intact, normal color, warm/dry Lymphatic: no anterior cervical ricco Last 48 Hrs of Labs/Stefan: Laboratory Tests 05/13/16 0840: Troponin I Pending 05/13/16 0545: APTT 106 *H 05/13/16 0345: Anion Gap 9, Estimated GFR 41 L, Glucose 132 H, Calcium 8.5, Phosphorus 4.3, Magnesium 1.9, Total Bilirubin 0.4, AST 15, ALT 34, Troponin I < 0.01, Albumin 2.9 L, CBC w Diff NO MAN DIFF REQ, RBC 3.64 L, MCV 88.4, MCH 29.1, RDW 14.4, MPV 9.6, Gran % 59.2, Lymphocytes % 32.2, Eosinophils % 1.2, Basophils % 0.2, Absolute Granulocytes 6.0, Absolute Lymphocytes 3.3, Absolute Monocytes 0.7 H, Absolute Eosinophils 0.1, Absolute Basophils 0, PUBS MCHC 33.0 05/12/164: PT 11.9, INR 1.13, APTT 27, D-Dimer 2048 H 05/12/162019: Amylase Cancelled, Lipase Cancelled 05/12/162019: Anion Gap 9, Estimated GFR 33 L, BUN/Creatinine Ratio 13.8, Glucose 116 H, Lactic Acid 1.1, Calcium 9.2, Iron 58, TIBC 342, Ferritin 23.6, Total Bilirubin 0.4, AST 17, ALT 29, Alkaline Phosphatase 60, Troponin I < 0.01, Pro-B- Natriuretic Pept 41.4, Total Protein 6.4, Albumin 3.4 L, Globulin 3.0, Albumin/ Globulin Ratio 1.1, Amylase 65, Lipase 84, CBC w Diff NO MAN DIFF REQ, RBC 4.03 L, MCV 88.1, MCH 29.3, RDW 14.8 H, MPV 9.3, Gran % 58.7, Lymphocytes % 32.4, Monocytes % 7.7, Eosinophils % 0.9, Basophils % 0.3, Absolute Granulocytes 7.0 H, Absolute Lymphocytes 3.8 H, Absolute Monocytes 0.9 H, Absolute Eosinophils 0.1, Absolute Basophils 0, PUBS MCHC 33.2 Diagnostic Data EKG Results Normal Sinus rhythm, normal intervals, no ST-T changes. There is slight slurring of QRS complex to was the end, which is an old finding only in lead II. CXR Results IMPRESSION: No acute findings identified. DICTATED BY: FARHANA DOMINGUEZ MD DATE/TIME DICTATED:05/13/16314 TEMPORARY RECEPTIONIST:BELTRE DATE/TIME TRANSCRIBED:05/13/16314 Other Results Left knee x-ray: IMPRESSION: Mild medial compartment degenerative arthritis. No acute findings. DICTATED BY: ANTHONY CANO MD DATE/TIME DICTATED:05/13/16752 TEMPORARY RECEPTIONIST:BELTRE DATE/TIME TRANSCRIBED:05/13/16752 Assessment/Plan Impression/Plan: 61 years-old lady with past medical history of hypertension, obstructive sleep apnea on occassional CPAP, questionable asthma not on inhalers, diabetes mellitus, GERD, depression, presented to the emergency department with complaints of worsening shortness of breath that started 2 days ago. In the emergency department, she was hypotensive with blood pressure 78/56, pulse 95, temperature 96.5, respiration 18, oxygen saturation 97% on room air. Due to her blood pressure levels, she was admitted to the intensive care unit and is being managed for the following issues: #Hypotension, likely due to dehydration This is A patient with hypertension, taking medications regularly, and denying a possibility of medication overdose. She did mention that her oral intake was poor the day before, and her labs show creatinine level of 1.6 with baseline of 0.9, thus making dehydration more likely. This morning's BEP is 1.3. -Continue IV fluids at 100 mL per hour for now and recheck BP at 4 PM -Continue to hold her antihypertensive medications -Given her history of hypertension, diabetes mellitus, occasional chest discomfort, acute coronary syndrome has to be ruled out. Her EKG and troponin done twice has been negative so far. #Acute onset of shortness of breath, ruling out pulmonary embolism The patient's symptoms of acute onset shortness of breath, chest discomfort, and a high d-dimer is suggestive of pulmonary embolism as well, although CTA cannot be done because the patient has elevated creatinine. -Patient has been started on IV heparin drip from the admission -Plan to continue it until PE is ruled out -After rehydration, when her creatinine comes down towards normal, chest CT angiogram can be ordered, which could be later today. So follow-up 3 PM BEP and will decide accordingly. Else, go for VQ scan. -Also even before that, I stat echocardiogram has already been ordered to check for right-sided pressures. #Acute kidney injury secondary to dehydration Patient's creatinine has gone up from 0.9 baseline to 1.6 on admission, but seems to be improving after IV fluid infusion. -Plan of management for rehydration as outlined above #Right-sided abdominal pain Patient is also complaining of right-sided vague abdominal pain, upper and lower quadrant, also on examination her right-sided costovertebral angle is tender. She does not complain of any urinary symptoms, any change in urine color though. -Patient has been changed to nothing by mouth for ultrasound abdomen and will be switched back to diabetic diet afterwards. #Obstructive sleep apnea -Plan to restart her CPAP during that time -Total respiratory care requested #Diabetes mellitus -Holding her oral antihyperglycemic agents, and starting the patient on insulin sliding scale while being admitted. -Patient is on diabetic diet #Depression Less likely to be amitriptyline overdose, given her EKG does not have characteristic changes, and the history is not convincing either. -Nonetheless, rechecking her amitriptyline level today and restarting her amitriptyline at 100 mg per day from 150 mg per day. #Diet: Diabetic diet #DVT prophylaxis with heparin DRIP until PE is ruled out #CODE STATUS: DNR/DNI Consult Acknowledgment - Thank you for your consult request. MARLEY RADFORD,[facility] [place] 05/13/16 1058: Assessment/Plan Other Findings/Comments: Seen and examined independently History as noted above Seen and examined independently History as noted above This is a lady with history of hypertension, obstructive sleep apnea noncompliant with CPAP, obstructive lung disease, diabetes, GERD, depression came into the hospital with significant shortness of breath for a few day duration. Since she came in initially she was found to have significant hypotension of unclear etiology and patient was fluid resuscitated. She had acute kidney injury CTA could not be done and patient was started empirically on heparin. Initially had d-dimer was elevated and there was a suspicion of whether she has had significant pulmonary embolism. In the emergency room. Had an EKG which did not show any changes and her significant data is as noted below. Chest x-ray reviewed no abnormality Knee x-ray showed median compartment syndrome Previous chest x-ray. Days ago had suggested probable pneumonia CT scan done in December had not shown any other major abnormality and she has had several CAT scans of the abdomen in the past. Previously she has had a CT chest which had shown lung nodules the largest one being 7 mm, which needs follow-up and she has not had one No blood work reviewed initial creatinine 1.6 now down to 1.3 anion gap upon admission was normal her LFTs initially were suggestive of low albumin normal BUN creatinine bilirubin and enzymes. Troponin was unremarkable. White count initially was 11.8 down to 10,000 hemoglobin 11.8 upon admission down to 10.6 after aggressive fluid resuscitation her INR was 1.13. D-dimer was elevated at more than 2000 and she has had previous history of significantly elevated d-dimer. On room air she was saturating well Her blood pressure initially which was low now has normalized Physical Exam General Appearance Alert, Oriented X3, Cooperative, No Acute Distress Skin No Rashes, No Breakdown HEENT Atraumatic, PERRLA, EOMI Neck Supple, No JVD, No thryomegaly Cardiovascular Regular Rate, Normal S1, Normal S2, No Murmurs Lungs mild expiratory wheeze Abdomen Normal Bowel Sounds, Soft, No Tenderness Neurological Normal Gait, Normal Speech, Strength at 5/5 X4 Ext, Normal Tone Extremities No Clubbing, No Cyanosis, No Edema Vascular Normal Pulses, Pulses Symmetrical IMPRESSION This is a 61-year-old lady with diabetes, hypertension, depression, GERD, obstructive lung disease, ex-smoker, previous 7 mm lung nodule, obstructive sleep apnea noncompliant now comes in with Significant dizziness shortness of breath palpitations without having significant hypoxemia with previous history suggestive of a respiratory infection for which she had had antibiotics. Patient has had a cough. And as she felt significantly worse she came into the emergency room. There issues include * Transient hypotension which responded to IV fluids and a lady is not physically active with very high d-dimer rule out pulmonary embolism. (She has had previously elevated d-dimer and indexes suspicion for PE is moderate). Other causes of dizziness hypotension needs to be ruled out. No clinical evidence suggestive of sepsis. No clinical evidence suggestive of significant acidosis (patient was on metformin). No clinical evidence suggestive of significant IA or any pericardial pathology. * Acute renal failure which is slowly improving in a lady with diabetes probably was related to hypovolemia, hypotension which is improving. Patient has been on SORAIDA inhibitor, NSAIDs, which may have exacerbated this * Recent history suggestive of pneumonia versus viral infection rule out any active infection * History of diabetes with no evidence suggestive of hypoglycemia * Obstructive sleep apnea not on CPAP on a regular basis * Obstructive lung disease with no active wheezing at this time patient is a remote smoker no PFTs before * Mild abdominal discomfort on exam rule out any intra-abdominal pathology this seems less likely however as she had a normal CT before Recommendation * Continue gentle IV fluids for another liter * Continue heparin * Lower extremity Doppler * Stat echocardiogram to evaluate RV pressures * Subcutaneous insulin sliding coverage hold all the by mouth medications * Continue CPAP at bedtime * Hold lisinopril and other medications * We will slowly resume her medications. Patient would probably need low dose Lyrica first confirm her CMR. * Hold amitriptyline, and a lower dose of amitriptyline could be started tonight if she stable unlikely that this is tricyclic overdose * Order amitriptyline level in the blood * Repeat troponin * Check random cortisol level and TSH if not already done * If she continues to have abdominal discomfort order an abdominal ultrasound * Once she is better with her creatinine she would require a CTA of the chest this will also evaluate her previous lung nodule * Use when necessary albuterol * Flu swab tts45 mins Consult Acknowledgment - Thank you for your consult request.
--- NOTE | 2016-05-13 07:58 | RADIOLOGY REPORT ---
EXAMINATION: XR KNEE, LEFT CLINICAL INFORMATION: Left knee pain. COMPARISON: None TECHNIQUE: Two views of the left knee. FINDINGS: Mild medial compartment degenerative arthritis characterized by marginal osteophytes primarily with minimal associated medial compartment joint space narrowing. Lateral and patellofemoral compartments appear well preserved. No joint effusion. No fracture or malalignment. Soft tissues are unremarkable.. IMPRESSION: Mild medial compartment degenerative arthritis. No acute findings.
[2016-05-13 08:00] VITALS: BP 102/62
--- NOTE | 2016-05-13 11:16 | ECHOCARDIOGRAM REPORT ---
CARTER LUO Age: 61 : 1955 Gender: F Exam Date: 05/13/2016 08:07 Exam Location: [facility] Ht (in): 64 Wt (lb): 237 BSA: 2.26 BP: 96 / 55 Ordering Physician: LOIDA TOSCANO MD Referring Physician: LOIDA TOSCANO MD Technologist: Tim Sy RUST Room Number: 104 Indications: ACUTE PULMONARY EMBOLISM Rhythm: Sinus Technical Quality: Fair FINDINGS Left Ventricle Normal size left ventricle. Mild concentric left ventricular hypertrophy. No obvious regional wall motion abnormalities. Normal left ventricular ejection fraction visually estimated at >65%. Abnormal relaxation filling pattern of the left ventricle for age (stage 1 diastolic dysfunction). Right Ventricle Mild right ventricular dilatation. Normal right ventricular function. Right Atrium Normal right atrial size. Left Atrium Normal left atrial size. Mitral Valve Mild mitral annular calcification. Structurally normal mitral valve. No mitral regurgitation. Aortic Valve Trileaflet aortic valve. Mild aortic sclerosis. No aortic valve stenosis or regurgitation. Tricuspid Valve Structurally normal tricuspid valve. No tricuspid regurgitation. Unable to estimate the right ventricular systolic pressure. Pulmonic Valve Pulmonic valve not well visualized, grossly normal. No pulmonic regurgitation. Pericardium No pericardial effusion. Great Vessels Normal size aortic root. Normal size inferior vena cava. CONCLUSIONS Normal size left ventricle. Mild concentric left ventricular hypertrophy. Normal left ventricular ejection fraction visually estimated at > 65%. Abnormal relaxation filling pattern of the left ventricle for age (stage 1 diastolic dysfunction). Mild right ventricular dilatation. Normal right ventricular function. Normal atrial size. No valvular stenosis or regurgitation. Unable to estimate the right ventricular systolic pressure. Fernando Sepulveda M.D. (Electronically Signed) Final Date: 13 May 2016 11:15 MEASUREMENTS (Male / Female) Normal Values 2D ECHO LV Diastolic Diameter PLAX 4.0 cm 4.2 - 5.9 / 3.9 - 5.3 cm LV Systolic Diameter PLAX 2.3 cm 2.1 - 4.0 cm LV Fractional Shortening PLAX 42.5 % 25 - 46 % LV Ejection Fraction 2D Teich 74.1 % IVS Diastolic Thickness 1.2 cm LVPW Diastolic Thickness 1.2 cm LV Relative Wall Thickness 0.6 RV Internal Dim ED PLAX 3.7 cm 1.9 - 3.8 cm LVOT Diameter 2.0 cm Aortic Root Diameter 2.8 cm LA Systolic Diameter LX 3.0 cm 3.0 - 4.0 / 2.7 - 3.8 cm Ascending Aorta Diameter 3.2 cm DOPPLER AV Peak Velocity 117.0 cm/s AV Peak Gradient 5.5 mmHg AV Mean Velocity 77.8 cm/s AV Mean Gradient 3.0 mmHg AV Velocity Time Integral 25.1 cm LVOT Peak Velocity 82.7 cm/s LVOT Peak Gradient 2.7 mmHg LVOT Mean Velocity 46.9 cm/s LVOT Mean Gradient 1.0 mmHg LVOT Velocity Time Integral 16.6 cm LVOT Stroke Volume 52.2 cm AV Area Cont Eq vti 2.1 cm AV Area Cont Eq pk 2.2 cm MV Peak Velocity 86.9 cm/s MV Peak Gradient 3.0 mmHg MV Mean Velocity 55.1 cm/s MV Mean Gradient 1.0 mmHg Mitral E Point Velocity 73.1 cm/s Mitral A Point Velocity 99.7 cm/s Mitral E to A Ratio 0.7 MV PHT Velocity 77.4 cm/s MV Deceleration Becker 327.0 cm/s MV Pressure Half Time 71.0 ms MV Area PHT 3.1 cm MV Deceleration Time 324.0 ms PV Peak Velocity 93.7 cm/s PV Peak Gradient 3.5 mmHg PV Mean Velocity 64.2 cm/s PV Mean Gradient 2.0 mmHg PV Velocity Time Integral 17.7 cm LV E' Lateral Velocity 5.8 cm/s Mitral E to LV E' Lateral Ratio 12.7 LV E' Septal Velocity 6.6 cm/s Mitral E to LV E' Septal Ratio 11.0
--- NOTE | 2016-05-13 11:54 | NUR ---
@0800-PT ALERT AND ORIENTED. COOP. GAY. FOLLOWS COMMANDS. CONT ON RA. AUTOPAP OVERNIGHT. LUNGS CLEAR. DENIES SOB AT THIS TIME. O2SAT 95%. NSR 70-80S. BP STABLE 100 SYSTOLIC. ECHO BEING DONE AT BEDSIDE AT THIS TIME. VQ SCAN ORD BY HOUSESTAFF. C3 DIET PROVIDED. PT DENIES PAIN AT THIS TIME. OOB AND VOIDS-BSC/TOILET. UC SENT THIS AM. SKIN INTACT. BLE DOPPLER ORD. NS INFUSING AT 100ML/HR. NEW IV SITE PLACED DUE TO PREV LAC SITE NOT FLUSHING. HEP GTT CONT AT 10UNITS/KG/HR. NEXT PTT AT 1330. EKG/TROP AT 0900. CONT TO MONITOR CLOSELY. CALL NICOLAS WITHIN REACH. @0900-EKG AND TROP DONE AT THIS TIME. NO COMPLAINTS. OOB TO CHAIR. AWATING BLE DOPPLER. REPEAT LABS AT 1330 AND 1600. CONT TO MONITOR CLOSELY. CALL NICOLAS WITHIN REACH.
--- NOTE | 2016-05-13 13:16 | NUR ---
@1230-BLE DOPPLER BEING DONE AT BEDSIDE. PT MADE NPO FOR ABD US TO BE DONE THIS AFTERNOON. REPEAT LABS INCLUDING AMITRIPTYLINE AND PTT LEVEL AT 1330 AND BEP AT 1500.
--- NOTE | 2016-05-13 13:33 | ULTRASOUND REPORT ---
EXAMINATION: US TRIPLEX LOWER EXTREMITY, BILATERAL CLINICAL INFORMATION: Shortness of breath. Possible pulmonary embolism. Patient unable to obtain CT chest angiography at this time. COMPARISON: Ultrasound lower extremities from 01/16/2014. TECHNIQUE: Color-flow triplex imaging with spectral analysis and compression Doppler were performed on the bilateral lower extremities. FINDINGS: The common femoral vein is compressible and exhibits a normal phasic waveform, bilaterally; this suggests that the iliac veins are widely patent above. Within each proximal thigh, the visualized profunda femoris vein is patent. The visualized greater saphenous vein and saphenofemoral junction are normal, bilaterally. Superficial femoral vein is patent in the proximal, mid and distal aspect of each thigh. Popliteal vein appears normal to the level of the trifurcation, bilaterally. Due to patient body habitus, calf veins are suboptimally visualized. No evidence of Wilson's cyst. IMPRESSION: No evidence of deep vein thrombosis in either lower extremity.
[2016-05-13 15:55] LABS: PTT 56 SEC (25-37)
[2016-05-13 16:00] VITALS: BP 120/80
--- NOTE | 2016-05-13 18:19 | NUR ---
@1800-PT HAVING ABD ULTRASOUND AT BEDSIDE AT THIS TIME. NPO CONT. PT TO HAVE CTA CHEST AFTER ULTRASOUND COMPLETE. CONT TO MONITOR. CALL NICOLAS WITHIN REACH.
--- NOTE | 2016-05-13 19:47 | CT SCAN REPORT ---
EXAMINATION: CT PULMONARY EMBOLISM STUDY CLINICAL INFORMATION: Shortness of breath, elevated d-dimer. COMPARISON: 05/12/2016. Chest CT from 01/16/2014. TECHNIQUE: Contiguous helical images of the chest were obtained following the administration of IV contrast. Multiplanar reconstructions were performed. MIPS were obtained and reviewed. DLP: 493 mGy-cm. CONTRAST: 72 mL of Optiray 350 were operator specialist communications without incident. FINDINGS: The heart is of normal size. There is no pericardial effusion. There is a left AP window lymph node identified measuring 9 mm in short axis. Filling defects indicative of pulmonary emboli are identified within the branches of the right lower and middle lobe pulmonary arteries. Within the left upper lobe, there is a rounded mass measuring 13 mm. This is identified in image 69/411. There is spiculation identified about the superior aspect of this mass. There are small bilateral pleural effusions, right greater than left with associated passive atelectasis. Limited evaluation of the upper abdomen demonstrates that the liver is of normal size and attenuation without focal lesions. Normal adrenal glands are identified. The patient is status post cholecystectomy. Surgical clips are identified. IMPRESSION: Pulmonary emboli involving the right middle and lower lobe pulmonary artery branches. Small bilateral pleural effusions with associated airspace disease. Spiculated left upper lobe pulmonary mass concerning for a pulmonary neoplasm. Recommendation is for correlation with PET/CT. The aforementioned was communicated to Dr. Yee at 1942 hours.
--- NOTE | 2016-05-13 19:53 | Event Note ---
Event Note Event Note: CTA Chest PE came back positive for pulmonary emboli involving the right middle and lower lobe pulmonary artery branches as well as a spiculated mass measuring about 13 mm in the left upper lobe concerning for neoplasm. Patient was already on heparin IV drip and was switched to the PE protocol. Results were communicated to the patient.
--- NOTE | 2016-05-13 20:30 | ULTRASOUND REPORT ---
EXAMINATION: ABDOMINAL ULTRASOUND COMPLETE CLINICAL INFORMATION: Abdominal pain. COMPARISON: None. TECHNIQUE: Real-time imaging of the abdominal viscera. FINDINGS: PANCREAS: The visualized pancreatic head and body are normal in appearance. The remainder of the pancreas is obscured from visualization by the overlying bowel gas. ABDOMINAL AORTA: The proximal, middle, and distal aortic segments are normal in caliber. INFERIOR VENA CAVA: Visualized portions are normal. LIVER: Normal. The liver demonstrates normal size, contour and echogenicity. No focal lesion or intrahepatic biliary duct dilatation. GALLBLADDER: The patient is status post cholecystectomy. COMMON BILE DUCT: Normal in caliber measuring 0.5 cm in diameter. RIGHT KIDNEY: Normal. No hydronephrosis. No renal calculi or focal parenchymal lesions. The kidney measures 10.4 cm in maximum dimension. LEFT KIDNEY: There is a 13 mm cyst within the upper pole. No hydronephrosis. No renal calculi or focal parenchymal lesions. The kidney measures 10.3 cm in maximum dimension. SPLEEN: Normal. The spleen measures 9.0 cm in maximum dimension. FREE FLUID: None. IMPRESSION: Unremarkable abdominal ultrasound status post cholecystectomy.
[2016-05-13 23:04] LABS: PTT 105 SEC (25-37)
[2016-05-13 23:37] VITALS: BP 122/74
[2016-05-14 06:41] LABS: ABSOLUTE BASOPHIL COUNT 0 /CUMM (0.0-0.2); ABSOLUTE EOSINOPHIL COUNT 0.2 /CUMM (0.0-0.7); ABSOLUTE GRANULOCYTE CT 2.7 /CUMM (1.4-6.5); ABSOLUTE MONOCYTE COUNT 0.6 /CUMM (0.10-0.60); BASOPHIL % 0.5 % (0.0-2.0); EOSINOPHIL % 2.8 % (0-5); HEMATOCRIT 27.4 % (37-47); MEAN CORPUSCULAR HGB 29.2 PG (27.0-31.0); MEAN CORPUSCULAR HGB CONC 33.2 G/DL (33.0-37.0); MEAN CORPUSCULAR VOLUME 87.9 FL (81.0-99.0); MEAN PLATELET VOLUME 8.6 FL (7.4-10.4); PLATELET COUNT 127 /CUMM (130-400); RBC DISTRIBUTION WIDTH 14.6 % (11.5-14.5); RED BLOOD CELL CT 3.12 /CUMM (4.20-5.40); WHITE BLOOD CELL COUNT 5.5 /CUMM (4.8-10.8)
[2016-05-14 06:48] LABS: PTT 70 SEC (25-37)
--- NOTE | 2016-05-14 07:52 | PN- Resident CRCU ---
Subjective HPI/CRCU Issues: Patient in ICU for: Hypotension (now resolving), pulmonary embolism (with IV heparin drip) I followed up and examined the patient today. See is lying comfortably in her bed with no apparent distress. She still does admits to shortness of breath when she uses the restroom, and is still tired. She does look more active than yesterday. She denies any chest pain, palpitation, cough, fever. 24 Hour Events: She underwent CAT scan of her chest yesterday and was diagnosed with pulmonary embolism. Vitals have been stable, blood pressure improving, no overnight issues. Objective Vital Signs & I&O Last 8 Hrs of Vitals and I&O: Vital Signs Date Time Temp Pulse Resp B/P Pulse O2 O2 Flow FiO2 Ox Delivery Rate 05/14 0800 94 Room Air 05/14 0800 97.9 76 16 130/69 94 Room Air 05/14 0501 75 91 05/14 0426 92 CPAP 05/14 0245 83 95 05/14 0157 81 100 05/13 2337 90 CPAP 05/13 2337 97.8 86 14 122/74 90 CPAP 05/13 2254 87 93 05/13 1954 96 Room Air 05/13 1600 98.0 82 22 120/80 95 Room Air 05/13 1300 Room Air 05/13 1300 95 Room Air Exam General Appearance: well developed/nourished, no apparent distress, alert, awake , comfortable, obese Head: atraumatic, normal appearance Ears, Nose, Throat: normal pharynx, normal ENT inspection, moist mucus membranes Neck: normal inspection, supple, full range of motion Respiratory: normal breath sounds, chest non-tender, no respiratory distress Cardiovascular: regular rate/rhythm, normal peripheral pulses Gastrointestinal: normal bowel sounds, soft, non-tender Extremities: normal inspection, normal capillary refill, normal range of motion, no edema Skin: intact, normal color, warm/dry IV Drips IV Drips: IV heparin drip per PE protocol Nutrition Nutrition: P.O. diet (CC3) Current Medications: Current Medications Sig/Ziyad Start time Last Medication Dose Route Stop Time Status Admin Acetaminophen 650 MG Q6P PRN 05/12 2330 AC PO Acetaminophen 1,000 MG Q6P PRN 05/12 2330 AC IV Albuterol Sulfate 2 PUF Q6-PRN PRN 02/13 2345 AC INH Amitriptyline HCl 150 MG AT BEDTIME 05/13 2200 DC PO Amitriptyline HCl 100 MG AT BEDTIME 05/13 2200 AC 05/13 PO 2221 Docusate Sodium 100 MG TID PRN 05/13 2000 AC 05/14 PO 0843 Heparin Sodium 4,300 UNIT ONCE ONE 05/13 1745 DC 05/13 (Porcine) IV 05/13 1746 1600 Heparin Sodium/ 25,000 UNIT Q24H 05/13 2000 AC Dextrose IV Dextrose/Water 500 ML Heparin Sodium/ 25,000 UNIT Q24H 05/12 2200 DC 05/12 Dextrose IV 2325 Dextrose/Water 500 ML Insulin Aspart 0 TIDAC/HS 05/13 0800 AC 05/13 SC 0822 Lorazepam 0.5 MG QPM PRN 05/13 0030 AC PO 05/20 0029 Morphine Sulfate 1 MG Q4P PRN 05/13 2000 AC 05/14 IV 0843 Morphine Sulfate 1 MG Q6PRN PRN 05/12 2330 DC 05/13 IV 1613 Omeprazole 40 MG ONCE ONE 05/13 2245 DC 05/13 PO 05/13 2246 2249 Omeprazole 40 MG DAILY AC 05/13 0700 AC 05/14 PO 0843 Pravastatin Sodium 20 MG 1700 05/13 1700 AC 05/13 PO 1711 Pregabalin 25 MG DAILY 05/13 1224 AC 05/14 PO 0843 Senna/Docusate Sodium 1 TAB BID 05/14 1000 AC PO Sodium Chloride 1,000 ML Q10H 05/13 0315 AC 05/[address] Scan Findings: Pulmonary emboli involving the right middle and lower lobe pulmonary artery branches. Small bilateral pleural effusions with associated airspace disease. Spiculated left upper lobe pulmonary mass concerning for a pulmonary neoplasm. Recommendation is for correlation with PET/CT. The aforementioned was communicated to Dr. Yee at 1942 hours. DICTATED BY: GUNJAN MAJOR MD DATE/TIME DICTATED:05/13/161929 ECONOMIC GEOGRAPHER:ARLIN DATE/TIME TRANSCRIBED:05/13/161929 Impression/Plan Impression/Problem List Impression: 61 years-old lady with past medical history of hypertension, obstructive sleep apnea on occassional CPAP, questionable asthma not on inhalers, diabetes mellitus, GERD, depression, presented to the emergency department with complaints of worsening shortness of breath that started 2 days ago. In the emergency department, she was hypotensive with blood pressure 78/56, pulse 95, temperature 96.5, respiration 18, oxygen saturation 97% on room air. Due to her blood pressure levels, she was admitted to the intensive care unit and is being managed for the following issues: Cardiovascular: #Hypotension, likely due to dehydration Patient has h/o hypertension, taking medications regularly, and denying a possibility of medication overdose. She did mention that her oral intake was poor 2 days POA, and her labs show creatinine level of 1.6 with baseline of 0.9, thus making dehydration more likely. Yesterday's BEP was 1.3. -Blood pressure is getting better already with 130/69 at 8 AM this morning -Decreasing IV fluids from 100 per hour to 75 per hour. Plan to decrease her fluid further as she has no problem taking per oral. -Continue to hold her antihypertensive medications -Given her history of hypertension, diabetes mellitus, occasional chest discomfort, acute coronary syndrome was ruled out. Her EKG and troponin done thrice was negative yesterday. Respiratory: #Pulmonary embolism The patient's symptoms of acute onset shortness of breath, chest discomfort, and a high d-dimer was suggestive of pulmonary embolism. Initial CTA was not done because the patient had elevated creatinine. CT angiogram of the chest was done yesterday which showed pulmonary embolism. -Patient was already on IV heparin for, but after the diagnosis was converted to protocol yesterday. -Echocardiogram ordered yesterday to check for right-sided pressures was not much helpful. -Plan to follow attending's plan for PE protocol. #Pulmonary nodule CAT scan of chest done yesterday showed a rounded mass measuring 13mm in left upper lobe. This finding has been communicated with the patient and needs to be worked-up on. Concern for it being malignant has been discussed, and workup planned as soon as she is discharged within 30 days. #Obstructive sleep apnea -Plan to restart her CPAP during that time -Total respiratory care requested Renal/metabolic: #Acute kidney injury secondary to dehydration Patient's creatinine had gone up from 0.9 baseline to 1.6 on admission, but iproved after IV fluid infusion. This morning's creatinine is 1.0. -Plan of management for rehydration as outlined above GI/: #Right-sided abdominal pain Patient was complaining of right-sided vague abdominal pain, upper and lower quadrant, also on examination her right-sided costovertebral angle was tender yesterday. So an ultrasound of the whole abdomen was sent yesterday, which was unremarkable, it is postcholecystectomy. -She seems stable in this regard, we'll continue watch for any symptoms Endocrine: #Diabetes mellitus -Held her oral antihyperglycemic agents, and continuing the patient on insulin sliding scale. -Patient is on diabetic diet, CC3 Mental health: #Depression Less likely to be amitriptyline overdose, given her EKG does not have characteristic changes, and the history is not convincing either. -Nonetheless, rechecking her amitriptyline level today and restarting her amitriptyline at 100 mg per day from 150 mg per day. #Diet: Diabetic diet #DVT prophylaxis with heparin DRIP until PE is ruled out #CODE STATUS: DNR/DNI Problem List: 1. Pulmonary embolism 2. Acute renal failure 3. Hypertension 4. Diabetes mellitus 5. Depression Pain Ratin Pain Goal: Remain pain free Pain Plan: prn Tomorrow's Labs & Rationales: CBC, ICU bundle, INR heparinized patient for PE, had mild resp distress, to f/u for infective cause Plan DVT/Prophylaxis: pharmacological
[2016-05-14 08:00] VITALS: BP 130/69
--- NOTE | 2016-05-14 14:05 | PN- Pulmonary ---
Subjective HPI/Critical Care Issues: See is lying comfortably in her bed with no apparent distress. She still does admits to shortness of breath when she uses the restroom, and is still tired. She does look more active than yesterday. She denies any chest pain, palpitation, cough, fever. 24 Hour Events: She underwent CAT scan of her chest yesterday and was diagnosed with pulmonary embolism. Vitals have been stable, blood pressure improving, no overnight issues. Objective Current Medications: Current Medications Sig/Ziyad Start time Last Medication Dose Route Stop Time Status Admin Acetaminophen 650 MG Q6P PRN 05/12 2330 AC PO Acetaminophen 1,000 MG Q6P PRN 05/12 2330 AC IV Albuterol Sulfate 2 PUF Q6-PRN PRN 05/12 2345 AC INH Amitriptyline HCl 100 MG AT BEDTIME 05/13 2200 AC 05/13 PO 2221 Docusate Sodium 100 MG TID PRN 05/13 2000 AC 05/14 PO 0843 Heparin Sodium 4,300 UNIT ONCE ONE 05/13 1745 DC 05/13 (Porcine) IV 05/13 1746 1600 Heparin Sodium/ 25,000 UNIT Q24H 05/13 2000 AC Dextrose IV Dextrose/Water 500 ML Heparin Sodium/ 25,000 UNIT Q24H 05/12 2200 DC 05/12 Dextrose IV 2325 Dextrose/Water 500 ML Insulin Aspart 0 TIDAC/HS 05/13 0800 AC 05/13 SC 0822 Lorazepam 0.5 MG QPM PRN 05/13 0030 AC PO 05/20 0029 Morphine Sulfate 1 MG Q4P PRN 05/13 2000 AC 05/14 IV 1206 Morphine Sulfate 1 MG Q6PRN PRN 05/12 2330 DC 05/13 IV 1613 Omeprazole 40 MG ONCE ONE 05/13 2245 DC 05/13 PO 05/13 2246 2249 Omeprazole 40 MG DAILY AC 05/13 0700 AC 05/14 PO 0843 Pravastatin Sodium 20 MG 1700 05/13 1700 AC 05/13 PO 1711 Pregabalin 25 MG DAILY 05/13 1224 AC 05/14 PO 0843 Senna/Docusate Sodium 1 TAB BID 05/14 1000 AC 05/14 PO 1029 Sodium Chloride 1,000 ML Q10H 05/13 0315 AC 05/14 IV 0843 Vital Signs & I&O Last 24 Hrs of Vitals and I&O: Vital Signs Date Time Temp Pulse Resp B/P Pulse O2 O2 Flow FiO2 Ox Delivery Rate 05/14 1216 94 Room Air 05/14 0800 94 Room Air 05/14 0800 97.9 76 16 130/69 94 Room Air 05/14 0501 75 91 05/14 0426 92 CPAP 05/14 0245 83 95 05/14 0157 81 100 05/13 2337 90 CPAP 05/13 2337 97.8 86 14 122/74 90 CPAP 05/13 2254 87 93 05/13 1954 96 Room Air 05/13 1600 98.0 82 22 120/80 95 Room Air Intake & Output 05/14 1600 05/14 0800 05/14 0000 Intake Total 894 1528 Output Total 400 1150 Balance 494 378 Intake, IV 794 1088 Intake, Oral 100 440 Output, Urine 400 1150 Patient 235 lb Weight Laboratory Tests 05/14 05/13 05/13 0620 2205 1519 Chemistry Sodium (137 - 145 mmol/L) 142 141 Potassium (3.5 - 5.1 mmol/L) 4.1 4.0 Chloride (98 - 107 mmol/L) 110 H 107 Carbon Dioxide (22 - 30 mmol/L) 26 23 Anion Gap (5 - 16) 6 11 BUN (7 - 17 mg/dL) 14 22 H Creatinine (0.5 - 1.0 mg/dL) 1.0 1.3 H Estimated GFR (>60 ml/min) 56 L 41 L BUN/Creatinine Ratio (7 - 25 %) 16.9 Glucose (65 - 99 mg/dL) 117 H Calcium (8.4 - 10.2 mg/dL) 8.2 L Phosphorus (2.5 - 4.5 mg/dL) 3.5 Magnesium (1.6 - 2.3 mg/dL) 1.9 Total Bilirubin (0.2 - 1.3 mg/dL) 0.3 AST (14 - 36 U/L) 17 ALT (9 - 52 U/L) 31 Albumin (3.5 - 5.0 g/dL) 2.8 L Coagulation APTT (25 - 37 SEC) 70 H 105 *H Hematology CBC w Diff NO MAN DIFF REQ WBC (4.8 - 10.8 /CUMM) 5.5 RBC (4.20 - 5.40 /CUMM) 3.12 L Hgb (12.0 - 16.0 G/DL) 9.1 L Hct (37 - 47 %) 27.4 L MCV (81.0 - 99.0 FL) 87.9 MCH (27.0 - 31.0 PG) 29.2 RDW (11.5 - 14.5 %) 14.6 H Plt Count (130 - 400 /CUMM) 127 L MPV (7.4 - 10.4 FL) 8.6 Gran % (42.2 - 75.2 %) 49.0 Lymphocytes % (20.5 - 51.1 %) 36.7 Monocytes % (1.7 - 9.3 %) 11.0 H Eosinophils % (0 - 5 %) 2.8 Basophils % (0.0 - 2.0 %) 0.5 Absolute Granulocytes (1.4 - 6.5 /CUMM) 2.7 Absolute Lymphocytes (1.2 - 3.4 /CUMM) 2.0 Absolute Monocytes (0.10 - 0.60 /CUMM) 0.6 Absolute Eosinophils (0.0 - 0.7 /CUMM) 0.2 Absolute Basophils (0.0 - 0.2 /CUMM) 0 PUBS MCHC (33.0 - 37.0 G/DL) 33.2 05/13 05/13 05/13 05/13 1500 1345 0840 0524 Chemistry Troponin I (< 0.11 ng/ml) Cancelled < 0.01 TSH (0.270 - 4.200 uIU/mL) 1.630 Cortisol AM Sample (4.46 - 22.7 ug/dL) 9.6 Coagulation APTT (25 - 37 SEC) 56 H 106 *H Toxicology Amitriptyline Pending Amitriptyline&Nortrip Pending Nortriptyline Pending 05/13 05/12 05/12 1604 8231 9102 Chemistry Sodium (137 - 145 mmol/L) 142 Potassium (3.5 - 5.1 mmol/L) 4.1 Chloride (98 - 107 mmol/L) 109 H Carbon Dioxide (22 - 30 mmol/L) 24 Anion Gap (5 - 16) 9 BUN (7 - 17 mg/dL) 22 H Creatinine (0.5 - 1.0 mg/dL) 1.3 H Estimated GFR (>60 ml/min) 41 L Glucose (65 - 99 mg/dL) 132 H Calcium (8.4 - 10.2 mg/dL) 8.5 Phosphorus (2.5 - 4.5 mg/dL) 4.3 Magnesium (1.6 - 2.3 mg/dL) 1.9 Total Bilirubin (0.2 - 1.3 mg/dL) 0.4 AST (14 - 36 U/L) 15 ALT (9 - 52 U/L) 34 Troponin I (< 0.11 ng/ml) < 0.01 Albumin (3.5 - 5.0 g/dL) 2.9 L Amylase Cancelled Lipase Cancelled Coagulation PT (9.4 - 12.5 SEC) 11.9 INR (0.90 - 1.19) 1.13 APTT (25 - 37 SEC) 27 D-Dimer (70 - 232 ng/ml) 2047 H Hematology CBC w Diff NO MAN DIFF REQ WBC (4.8 - 10.8 /CUMM) 10.1 RBC (4.20 - 5.40 /CUMM) 3.64 L Hgb (12.0 - 16.0 G/DL) 10.6 L Hct (37 - 47 %) 32.2 L MCV (81.0 - 99.0 FL) 88.4 MCH (27.0 - 31.0 PG) 29.1 RDW (11.5 - 14.5 %) 14.4 Plt Count (130 - 400 /CUMM) 149 MPV (7.4 - 10.4 FL) 9.6 Gran % (42.2 - 75.2 %) 59.2 Lymphocytes % (20.5 - 51.1 %) 32.2 Eosinophils % (0 - 5 %) 1.2 Basophils % (0.0 - 2.0 %) 0.2 Absolute Granulocytes (1.4 - 6.5 /CUMM) 6.0 Absolute Lymphocytes (1.2 - 3.4 /CUMM) 3.3 Absolute Monocytes (0.10 - 0.60 /CUMM) 0.7 H Absolute Eosinophils (0.0 - 0.7 /CUMM) 0.1 Absolute Basophils (0.0 - 0.2 /CUMM) 0 PUBS MCHC (33.0 - 37.0 G/DL) 33.0 05/12 Chemistry Sodium (137 - 145 mmol/L) 140 Potassium (3.5 - 5.1 mmol/L) 3.9 Chloride (98 - 107 mmol/L) 102 Carbon Dioxide (22 - 30 mmol/L) 28 Anion Gap (5 - 16) 9 BUN (7 - 17 mg/dL) 22 H Creatinine (0.5 - 1.0 mg/dL) 1.6 H Estimated GFR (>60 ml/min) 33 L BUN/Creatinine Ratio (7 - 25 %) 13.8 Glucose (65 - 99 mg/dL) 116 H Lactic Acid (0.7 - 2.1 mmol/L) 1.1 Calcium (8.4 - 10.2 mg/dL) 9.2 Iron (37 - 170 ug/dL) 58 TIBC (265 - 497 ug/dL) 342 Ferritin (11.1 - 264 ng/mL) 23.6 Total Bilirubin (0.2 - 1.3 mg/dL) 0.4 AST (14 - 36 U/L) 17 ALT (9 - 52 U/L) 29 Alkaline Phosphatase (<127 U/L) 60 Troponin I (< 0.11 ng/ml) < 0.01 [id number] Pept (<125 pg/mL) 41.4 Total Protein (6.3 - 8.2 g/dL) 6.4 Albumin (3.5 - 5.0 g/dL) 3.4 L Globulin (1.9 - 4.2 gm/dL) 3.0 Albumin/Globulin Ratio (1.1 - 2.2 %) 1.1 Amylase (30 - 110 U/L) 65 Lipase (23 - 300 U/L) 84 Hematology CBC w Diff NO MAN DIFF REQ WBC (4.8 - 10.8 /CUMM) 11.8 H RBC (4.20 - 5.40 /CUMM) 4.03 L Hgb (12.0 - 16.0 G/DL) 11.8 L Hct (37 - 47 %) 35.5 L MCV (81.0 - 99.0 FL) 88.1 MCH (27.0 - 31.0 PG) 29.3 RDW (11.5 - 14.5 %) 14.8 H Plt Count (130 - 400 /CUMM) 185 MPV (7.4 - 10.4 FL) 9.3 Gran % (42.2 - 75.2 %) 58.7 Lymphocytes % (20.5 - 51.1 %) 32.4 Monocytes % (1.7 - 9.3 %) 7.7 Eosinophils % (0 - 5 %) 0.9 Basophils % (0.0 - 2.0 %) 0.3 Absolute Granulocytes (1.4 - 6.5 /CUMM) 7.0 H Absolute Lymphocytes (1.2 - 3.4 /CUMM) 3.8 H Absolute Monocytes (0.10 - 0.60 /CUMM) 0.9 H Absolute Eosinophils (0.0 - 0.7 /CUMM) 0.1 Absolute Basophils (0.0 - 0.2 /CUMM) 0 PUBS MCHC (33.0 - 37.0 G/DL) 33.2 Urines Urine Color Cancelled Urine Clarity Cancelled Urine pH Cancelled Ur Specific [place] Cancelled Urine Protein Cancelled Urine Ketones Cancelled Urine Nitrite Cancelled Urine Bilirubin Cancelled Urine Urobilinogen Cancelled Ur Leukocyte Esterase Cancelled Ur Microscopic Cancelled Urine Hemoglobin Cancelled Urine Glucose Cancelled Microbiology Date/Time Procedure - Status Source Growth 05/13 0800 Urine Culture - RES URINE ROUT 05/13 013 Surveillance Culture - COMP UPPER RESP 05/13 129 Surveillance Culture - COMP GI Impression/Plan Impression/Plan Impression/Plan: IMPRESSION: Pulmonary emboli involving the right middle and lower lobe pulmonary artery branches. Small bilateral pleural effusions with associated airspace disease. Spiculated left upper lobe pulmonary mass concerning for a pulmonary neoplasm. Recommendation is for correlation with PET/CT. The aforementioned was communicated to Dr. Yee at 1942 hours. DICTATED BY: GUNJAN MAJOR MD DATE/TIME DICTATED:05/13/161929 Exam General Appearance: well developed/nourished, no apparent distress, alert, awake , comfortable, obese Head: atraumatic, normal appearance Ears, Nose, Throat: normal pharynx, normal ENT inspection, moist mucus membranes Neck: normal inspection, supple, full range of motion Respiratory: normal breath sounds, chest non-tender, no respiratory distress Cardiovascular: regular rate/rhythm, normal peripheral pulses Gastrointestinal: normal bowel sounds, soft, non-tender Extremities: normal inspection, normal capillary refill, normal range of motion, no edema Skin: intact, normal color, warm/dry IMPRESSION This is a 61-year-old lady with diabetes, hypertension, depression, GERD, obstructive lung disease, ex-smoker, previous 7 mm lung nodule, obstructive sleep apnea noncompliant now comes in with Significant dizziness shortness of breath palpitations without having significant hypoxemia with previous history suggestive of a respiratory infection for which she had had antibiotics. Patient has had a cough. And as she felt significantly worse she came into the emergency room. There issues include * Transient hypotension which responded to IV fluids with PUlm emboli ( unprovoked pe) now better on heparin * Resolving Acute renal failure which is slowly improving in a lady with diabetes probably was related to hypovolemia, hypotension which is improving. Patient has been on SORAIDA inhibitor, NSAIDs, which may have exacerbated this * Recent history suggestive of pneumonia versus viral infection rule out any active infection * History of diabetes with no evidence suggestive of hypoglycemia * Obstructive sleep apnea not on CPAP on a regular basis * Obstructive lung disease with no active wheezing at this time patient is a remote smoker no PFTs before * CT suggestive of primary lung cancer and needs out pt work up and pt is aware Recommendation Continue heparin We will switch her to Lovenox tomorrow V-7 days and then subsequently will start her on xeralto Continue her other current medications Minimize lorazepam Increase activity Patient is stable can come off telemetry Patient seemed to have constipation aggressively treat that Discussed with patient extensively about her CT finding and she is aware of her diagnosis and she is willing to follow up with me as an outpatient Continue to monitor hemoglobin and hematocrit Watch her renal function When she is completely stable and if her blood pressure were to come up to more than 150 will resume her lisinopril at low dose and watch her renal function Patient is advised to stop all nonsteroidal anti-inflammatory Slowly start resuming outpatient diabetes medication as she is better Patient can be transferred to a regular medical floor.
[2016-05-14 15:55] VITALS: BP 130/70
[2016-05-14 19:28] LABS: PTT 59 SEC (25-37)
--- NOTE | 2016-05-14 20:24 | NUR ---
PT GEN MED HOLD. A/OX3, FOLLOWS COMMANDS. DENIES ANY PAIN AT PRESENT. BREATH SOUNDS CLEAR THOUGHOUT BILATERALLY. NO COUGH, SOB OR RESP DISTRESS NOTED AT PRESENT. VS STABLE. ABD SOFT, NONTENDER, NONDISTENDED, POSITIVE BOWEL SOUNDS. VOIDS. SKIN INTACT. OOB TO BR-GAIT STEADY
--- NOTE | 2016-05-14 21:28 | NUR ---
PT TRANSFERRED TO 220-1 VIA WHEELCHAIR
[2016-05-14 22:49] VITALS: BP 152/70
[2016-05-15 03:25] LABS: ABSOLUTE BASOPHIL COUNT 0 /CUMM (0.0-0.2); ABSOLUTE EOSINOPHIL COUNT 0.2 /CUMM (0.0-0.7); ABSOLUTE GRANULOCYTE CT 3.6 /CUMM (1.4-6.5); ABSOLUTE MONOCYTE COUNT 0.5 /CUMM (0.10-0.60); BASOPHIL % 0.5 % (0.0-2.0); EOSINOPHIL % 2.2 % (0-5); GRANULOCYTE % 49.4 % (42.2-75.2); HEMATOCRIT 28.5 % (37-47); MEAN CORPUSCULAR HGB 29.3 PG (27.0-31.0); MEAN CORPUSCULAR HGB CONC 33.6 G/DL (33.0-37.0); MEAN CORPUSCULAR VOLUME 87.2 FL (81.0-99.0); MEAN PLATELET VOLUME 9.8 FL (7.4-10.4); PLATELET COUNT 136 /CUMM (130-400); RBC DISTRIBUTION WIDTH 14.4 % (11.5-14.5); RED BLOOD CELL CT 3.27 /CUMM (4.20-5.40); WHITE BLOOD CELL COUNT 7.3 /CUMM (4.8-10.8)
[2016-05-15 03:29] LABS: PT 11.6 SEC (9.4-12.5)
[2016-05-15 03:35] LABS: PTT 104 SEC (25-37)
[2016-05-15 06:28] VITALS: BP 140/64
[2016-05-15 10:53] LABS: PTT 43 SEC (25-37)
--- NOTE | 2016-05-15 11:58 | PN- Housestaff ---
Subjective Follow-up For: Pulmonary embolism Subjective: She was seen and examined bedside. Patient reports improvement in her breathing. Patient denies any acute complaint of increased pain, chest pain, palpitation, shortness of breath, abdominal pain, fever, chills, cough or dysuria. Patient is noticed later ambulating around the general medicine floor without any difficulties. Review of Systems Constitutional: Reports: no symptoms. Objective Last 24 Hrs of Vital Signs/I&O Vital Signs Date Time Temp Pulse Resp B/P Pulse O2 O2 Flow FiO2 Ox Delivery Rate 05/15 1646 98.4 05/15 1345 97.9 85 20 130/60 98 Room Air 05/15 0800 Room Air 05/15 0628 98.4 75 20 140/64 93 Room Air 05/15 0204 86 94 05/14 2249 98.3 88 20 152/70 93 Room Air Intake & Output 05/15 1600 05/15 0800 05/15 0000 Intake Total 960 985 546 Output Total Balance 960 985 546 Intake, IV 600 745 306 Intake, Oral 360 240 240 Number 0 Bowel Movements Physical Exam General Appearance: Oriented X3, Cooperative Other Physical Findings: Head: atraumatic, normal appearance Ears, Nose, Throat: normal pharynx, normal ENT inspection, moist mucus membranes Neck: normal inspection, supple, full range of motion Respiratory: normal breath sounds, chest non-tender, no respiratory distress Cardiovascular: regular rate/rhythm, normal peripheral pulses Gastrointestinal: normal bowel sounds, soft, non-tender Extremities: normal inspection, normal capillary refill, normal range of motion, no edema Skin: intact, normal color, warm/dry Current Medications: Current Medications Sig/Ziyad Start time Last Medication Dose Route Stop Time Status Admin Acetaminophen 650 MG Q6P PRN 05/12 2330 AC PO Acetaminophen 1,000 MG Q6P PRN 05/12 2330 AC IV Albuterol Sulfate 2 PUF Q6-PRN PRN 05/12 2345 AC INH Amitriptyline HCl 100 MG AT BEDTIME 05/13 2199 AC 05/14 PO 2110 Ceftriaxone Sodium 1,000 MG DAILY 05/15 1000 AC 05/15 IV 0959 Docusate Sodium 100 MG TID PRN 05/13 2000 AC 05/15 PO 1625 Enoxaparin Sodium 100 MG BID 05/15 1000 DC 05/15 SC 1000 Heparin Sodium 5,000 UNIT .STK-MED ONE 05/14 2042 DC (Porcine) IV 05/14 204 Heparin Sodium/ 25,000 UNIT Q24H 05/13 1999 DC 05/15 Dextrose IV 0444 Dextrose/Water 500 ML Insulin Aspart 0 TIDAC/HS 05/13 0800 AC 05/13 SC 0822 Lorazepam 0.5 MG QPM PRN 05/13 0030 AC PO 05/20 0029 Morphine Sulfate 1 MG Q4P PRN 05/13 1999 AC 05/15 IV 1224 Omeprazole 40 MG DAILY AC 05/13 0700 AC 05/15 PO 0553 Pravastatin Sodium 20 MG 1700 05/13 1700 AC 05/15 PO 1625 Pregabalin 25 MG DAILY 05/13 1224 AC 05/15 PO 1000 Rivaroxaban 15 MG BID 05/15 2200 AC PO Senna/Docusate Sodium 1 TAB BID 05/14 1000 AC 05/15 PO 1000 Sodium Chloride 1,000 ML Q10H 05/13 0315 DC 05/15 IV 0005 Last 24 Hrs of Lab/Stefan Results Last 24 Hrs of Labs/Mics: Laboratory Tests 05/15/16 1008: APTT 43 H 05/15/16 0255: PT 11.6, INR 1.11 05/15/16 0255: Anion Gap 10, Estimated GFR > 60, Glucose 114 H, Calcium 8.6, Phosphorus 3.0, Magnesium 1.7, Total Bilirubin 0.4, AST 26, ALT 32, Albumin 3.4 L, APTT 104 *H, CBC w Diff NO MAN DIFF REQ, RBC 3.27 L, MCV 87.2, MCH 29.3, RDW 14.4, MPV 9.8, Gran % 49.4, Lymphocytes % 41.1, Monocytes % 6.8, Eosinophils % 2.2, Basophils % 0.5, Absolute Granulocytes 3.6, Absolute Lymphocytes 3.0, Absolute Monocytes 0.5 , Absolute Eosinophils 0.2, Absolute Basophils 0, PUBS MCHC 33.6 05/14/16 1745: APTT 59 H Microbiology 05/15 0655 BLOOD: Blood Culture - RECD 05/15 624 BLOOD: Blood Culture - RECD Assessment/Plan Assessment: This is a 61 years-old lady with past medical history of hypertension, obstructive sleep apnea on occassional CPAP, questionable asthma not on inhalers , diabetes mellitus, GERD, depression, presented to the emergency department with complaints of worsening shortness of breath that started 2 days ago. In the emergency department, she was hypotensive with blood pressure 78/56, pulse 95, temperature 96.5, respiration 18, oxygen saturation 97% on room air. Due to her blood pressure levels, she was admitted to the intensive care unit and is being managed for the following issues: #Hypotension, likely due to dehydration Resolved. Likely was secondary to bulimia secondary to decrease fluid intake few days prior to admission and possibly due to the PE. Would stopped. Patient is able to eat oral fluid intake encouraged. BP meds restarted. #Pulmonary embolism The patient's symptoms of acute onset shortness of breath, chest discomfort, and a high d-dimer was suggestive of pulmonary embolism. Initial CTA was not done because the patient had elevated creatinine. CT angiogram of the chest was done which showed pulmonary embolism. Heparin was stopped today, she was given 1 dose of enoxaparin, and was transitioned to oral Xarelto 15 mg by mouth twice a day to be administered for 3 weeks and then switch to 20 mg daily. Most likely pt will require 6 month therapy of anticoagulation as this was unprovoked PE and also patient has asignificant risk factor of what seems to be pulmonary malignancy based on the spiculated mass found on CT. Checked with residential case manager whether Xarelto was covered by patient's insurance, was confirmed that the medication is covered and pt will be able to get it. #Pulmonary nodule CAT scan of chest done showed a rounded mass measuring spiculated 13mm in left upper lobe. This finding has been communicated with the patient and needs to be worked-up on. Concern for it being malignant has been discussed, and workup planned as soon as she is discharged within 30 days. #Obstructive sleep apnea -Plan to restart her CPAP during that time Renal/metabolic: #Acute kidney injury secondary to dehydration Improved and resolved status post hydration Endocrine: #Diabetes mellitus -Held her oral antihyperglycemic agents, and continuing the patient on insulin sliding scale. -Patient is on diabetic diet, CC3 Mental health: #Depression Less likely to be amitriptyline overdose, given her EKG does not have characteristic changes, and the history is not convincing either. -Nonetheless, rechecking her amitriptyline level today and restarting her amitriptyline at 100 mg per day from 150 mg per day. Problem List: 1. Pulmonary embolism Pain Ratin Pain Location: diffuse Pain Goal: Remain pain free Pain Plan: per pain pathway Tomorrow's Labs & Rationales: none
[2016-05-15 13:45] VITALS: BP 130/60
--- NOTE | 2016-05-15 14:21 | PN- Pulmonary ---
Subjective HPI/Critical Care Issues: Doing well afebrile On room air Walking around with no sig dyspnea Objective Current Medications: Current Medications Sig/Ziyad Start time Last Medication Dose Route Stop Time Status Admin Acetaminophen 650 MG Q6P PRN 05/12 2330 AC PO Acetaminophen 1,000 MG Q6P PRN 05/12 2330 AC IV Albuterol Sulfate 2 PUF Q6-PRN PRN 05/12 2345 AC INH Amitriptyline HCl 100 MG AT BEDTIME 05/13 2200 AC 05/14 PO 2110 Ceftriaxone Sodium 1,000 MG DAILY 05/15 1000 AC 05/15 IV 0959 Docusate Sodium 100 MG TID PRN 05/13 2000 AC 05/14 PO 0843 Enoxaparin Sodium 100 MG BID 05/15 1000 DC 05/15 SC 1000 Heparin Sodium 5,000 UNIT .STK-MED ONE 05/14 204 DC (Porcine) IV 05/14 2044 Heparin Sodium/ 25,000 UNIT Q24H 05/13 1999 DC 05/15 Dextrose IV 0444 Dextrose/Water 500 ML Insulin Aspart 0 TIDAC/HS 05/13 0800 AC 05/13 SC 0822 Lorazepam 0.5 MG QPM PRN 05/13 0030 AC PO 05/20 0029 Morphine Sulfate 1 MG Q4P PRN 05/13 2000 AC 05/15 IV 1224 Omeprazole 40 MG DAILY AC 05/13 0700 AC 05/15 PO 0553 Pravastatin Sodium 20 MG 1700 05/13 1700 AC 05/14 PO 1621 Pregabalin 25 MG DAILY 05/13 1224 AC 05/15 PO 1000 Rivaroxaban 15 MG BID 05/15 2200 AC PO Senna/Docusate Sodium 1 TAB BID 05/14 1000 AC 05/15 PO 1000 Sodium Chloride 1,000 ML Q10H 05/13 0315 DC 05/15 IV 0005 Vital Signs & I&O Last 24 Hrs of Vitals and I&O: Vital Signs Date Time Temp Pulse Resp B/P Pulse O2 O2 Flow FiO2 Ox Delivery Rate 05/15 1345 97.9 85 20 130/60 98 Room Air 05/15 0800 Room Air 05/15 0628 98.4 75 20 140/64 93 Room Air 05/15 0204 86 94 05/14 2249 98.3 88 20 152/70 93 Room Air 05/14 1555 98.4 87 18 130/70 96 Room Air Intake & Output 05/15 1600 05/15 0800 05/15 0000 Intake Total 960 985 546 Output Total Balance 960 985 546 Intake, IV 600 745 306 Intake, Oral 360 240 240 Number 0 Bowel Movements Impression/Plan Impression/Plan Impression/Plan: IMPRESSION: Pulmonary emboli involving the right middle and lower lobe pulmonary artery branches. Small bilateral pleural effusions with associated airspace disease. Spiculated left upper lobe pulmonary mass concerning for a pulmonary neoplasm. Recommendation is for correlation with PET/CT. The aforementioned was communicated to Dr. Yee at 1942 hours. DICTATED BY: GUNJAN MAJOR MD DATE/TIME DICTATED:05/13/161929 Exam General Appearance: well developed/nourished, no apparent distress, alert, awake , comfortable, obese Head: atraumatic, normal appearance Ears, Nose, Throat: normal pharynx, normal ENT inspection, moist mucus membranes Neck: normal inspection, supple, full range of motion Respiratory: normal breath sounds, chest non-tender, no respiratory distress Cardiovascular: regular rate/rhythm, normal peripheral pulses Gastrointestinal: normal bowel sounds, soft, non-tender Extremities: normal inspection, normal capillary refill, normal range of motion, no edema Skin: intact, normal color, warm/dry IMPRESSION This is a 61-year-old lady with diabetes, hypertension, depression, GERD, obstructive lung disease, ex-smoker, previous 7 mm lung nodule, obstructive sleep apnea noncompliant now comes in with Significant dizziness shortness of breath palpitations without having significant hypoxemia with previous history suggestive of a respiratory infection for which she had had antibiotics. Patient has had a cough. And as she felt significantly worse she came into the emergency room. There issues include * Transient hypotension which responded to IV fluids with PUlm emboli ( unprovoked pe) now better on heparin * Resolving Acute renal failure which is slowly improving in a lady with diabetes probably was related to hypovolemia, hypotension which is improving. Patient has been on SORAIDA inhibitor, NSAIDs, which may have exacerbated this * Recent history suggestive of pneumonia versus viral infection rule out any active infection * History of diabetes with no evidence suggestive of hypoglycemia * Obstructive sleep apnea not on CPAP on a regular basis * Obstructive lung disease with no active wheezing at this time patient is a remote smoker no PFTs before * CT suggestive of primary lung cancer and needs out pt work up and pt is aware Recommendation Start xeralto 15 bid for three weeks, and then 20 qd Discussed with patient extensively about her CT finding and she is aware of her diagnosis and she is willing to follow up with me as an outpatient Slowly start resuming outpatient diabetes medication as she is better Pt aware of pulm malignancy concerns and writtent instructions given to follow with me and she will make an appt and accepts all risks for noncompliance
--- NOTE | 2016-05-15 15:02 | PN- Att Addend ---
Attending MD Review Statement Attending Statement Attending MD Statement: examined this patient, discuss w/resident/PA/INSURANCE AND BENEFITS CLERK, agreed w/resident/PA/INSURANCE AND BENEFITS CLERK, reviewed EMR data (avail), discussed w/nursing, discussed w/ case mgmt Attending Assessment/Plan: Laboratory Tests 05/15/16 1008: APTT 43 H 05/15/16 0255: PT 11.6, INR 1.11 05/15/16 0255: Anion Gap 10, Estimated GFR > 60, Glucose 114 H, Calcium 8.6, Phosphorus 3.0, Magnesium 1.7, Total Bilirubin 0.4, AST 26, ALT 32, Albumin 3.4 L, APTT 104 *H, CBC w Diff NO MAN DIFF REQ, RBC 3.27 L, MCV 87.2, MCH 29.3, RDW 14.4, MPV 9.8, Gran % 49.4, Lymphocytes % 41.1, Monocytes % 6.8, Eosinophils % 2.2, Basophils % 0.5, Absolute Granulocytes 3.6, Absolute Lymphocytes 3.0, Absolute Monocytes 0.5 , Absolute Eosinophils 0.2, Absolute Basophils 0, PUBS MCHC 33.6 05/14/16 1745: APTT 59 H Vital Signs Date Time Temp Pulse Resp B/P Pulse O2 O2 Flow FiO2 Ox Delivery Rate 05/15 1345 97.9 85 20 130/60 98 Room Air 05/15 0800 Room Air 05/15 0628 98.4 75 20 140/64 93 Room Air 05/15 0204 86 94 05/14 2249 98.3 88 20 152/70 93 Room Air 05/14 1555 98.4 87 18 130/70 96 Room Air d/w patient and millwright apprentice the care plan. Pulmonary embolism- plan is to start pt on xarelto and continue her on for atleast 6 months, given that she may have underlying malignancy. Pt will f/u with pulmonology as an outpatient for her CT scan finding of spiculated nodule. Will resume her home DM meds. Vitals stable.
[2016-05-15 22:12] VITALS: BP 170/68
[2016-05-16 02:15] VITALS: BP 154/80
--- NOTE | 2016-05-16 06:22 | Discharge Summary ---
Visit Information Visit Dates Admission Date: 05/12/16 Discharge Date: 05/16/2016 Hospital Course Course Attending Physician: ARIELLE RADFORD,ANTONY Castro Primary Care Physician: SHARIF PASTOR Other Care Providers: Ramón Coe MD Hospital Course: 61-year-old [place] lady with a PMH of HTN, DM, previous tobacco use, SANJUANITA on nocturnal CPAP, GERD and depression who presented with complaints of shortness of breath, palpitations, 2 day duration of dizziness, choking sensation, preceding 4 day duration of left knee pain decreased ambulation. She was previously seen on 05/03/2016 for URI symptoms and discharged home on azithromycin , prednisone taper and tramadol. VS on admission: BP 78/56, HR 95, SPO2 97% on RA, T 96.5 PE on admission: AAO, no acute distress. RRR, normal S1/S2 with no murmurs. Lungs with mild extremities. Normal bowel sounds, soft and nontender. Strength 5/5 in all extremities, no focal deficits. Pertinent labs: WBC 11.8, H&H 11.8/35.5, platelets 185, BUN/CR 22/1.6, sodium 140, potassium 3.9 D-dimer: 2048 EKG: Sinus rhythm, normal axis, regular no ST-T changes X-ray of knee: Mild medial compartment degenerative arthritis. No acute findings CXR: No acute findings Abdominal ultrasound: Unremarkable abdominal ultrasound status post cholecystectomy. Venous Doppler: No evidence of deep vein thrombosis in either lower extremity. Chest CTA: Pulmonary emboli involving the right middle and lower lobe pulmonary artery branches. Small bilateral pleural effusions with associated airspace disease. Spiculated left upper lobe pulmonary mass concerning for a pulmonary neoplasm. Recommendation is for correlation with PET/CT. She was admitted initially to the ICU and eventually transferred to general medicine and managed for the following problems: 1. Pulmonary embolism (unprovoked) 2. Spiculated left upper lobe pulmonary mass concerning for a pulmonary neoplasm 3. Transient hypotension responsive to fluid resuscitation 4. Stage I diastolic dysfunction 5. Recent URTI/pneumonia 6. SANJUANITA noncompliant on nocturnal CPAP 7. Diabetes Hospital course: 1. Pulmonary embolism (unprovoked) * Findings as indicated above on chest CTA. No family history of hypercoagulability, no personal history of miscarriages. * Started the patient on a heparin drip per protocol and transitioned her to NOAC Xarelto on 05/15/2016. Plan therapy will be 15 mg BID for 3 weeks and subsequently to be followed by 20 mg daily 2. Spiculated left upper lobe pulmonary mass concerning for a pulmonary neoplasm * New incidental findings. Dr. Coe (post acute care nurse practitioner) and the patient had extensive discussions with a planned follow-up after discharge. Will provide referral for her to follow-up with him within 1-2 weeks after discharge 3. Transient hypotension responsive to fluid resuscitation * On admission blood pressure 78/56, HR 95 BPM. DDX included sepsis versus hypotension in the setting of PE * She received approximately 8 L crystalloid resuscitation with normal saline the first 24-48 hours with appropriate response to by pressure. 4. Recent URTI/pneumonia * Patient was maintained on ceftriaxone 1 g IV (2 days) * We'll plan to discharge on 5 more days therapy with levofloxacin 5. SANJUANITA noncompliant on nocturnal CPAP * History of noncompliance on nocturnal CPAP * Echocardiogram (05/13/16) stage I diastolic dysfunction, EF> 65%, AV area 2.1 cm, 6. Acute kidney injury * BUN/CR on admission 20/04.6 with a baseline creatinine of 0.9. This resolved over the hospital course with fluid resuscitation * We'll have patient check her renal function in 1 week, cc results to providers to monitor renal function in the setting of current NOAC therapy 7. Diabetes * Maintain her on insulin sliding scale with well-controlled blood sugars 8. Depression * Transiently held amitriptyline. Results at this time are pending. We restarted her on her home dose 100 mg daily at bedtime Allergies: Coded Allergies: fentanyl (Intermediate, RASH 01/19/16) Disposition Summary Disposition Principal Diagnosis: Pulmonary embolism Additional Diagnosis: Hypertension Discharge Disposition: home or self care Discharge Instructions General Discharge Information Code Status: Do Not Resucitate/Intubat Patient's Diet: Heart healthy diet Patient's Activity: As tolerated Follow-Up Instructions/Appts: Please follow-up with your primary care doctor within 1 week after discharge. Please follow-up with post acute care nurse practitioner within 1-2 weeks after discharge. Take all medications as directed. Your being started on a blood thinner. Monitor for any bloody stools or dark urine Medications at Discharge Discharge Medications: Continue taking these medications: Amlodipine Besylate (Norvasc) 5 MG TABLET 1 Tablet ORAL DAILY Comments: NOT GIVEN IN HOSPITAL Lisinopril (Lisinopril) 40 MG TABLET 1 Tablet ORAL DAILY Comments: NOT GIVEN IN HOSPITAL Esomeprazole (Nexium) 40 MG CAPSULE.DR 1 Capsule ORAL DAILY Comments: NOT GIVEN IN HOSPITAL Albuterol Sulfate (Proair Hfa) 8.5 GM HFA.AER.AD 2 Puff Inhale through mouth as needed for RESPIRATORY Comments: NOT GIVEN IN HOSPITAL Pravastatin Sodium (Pravastatin Sodium) 20 MG TABLET 1 Tablet ORAL DAILY Qty = 30 Comments: NOT GIVEN IN HOSPITAL Cholecalciferol (Vitamin D3) (Vitamin D) 2,000 UNIT TABLET 1 Tablet ORAL DAILY Qty = 30 Comments: NOT GIVEN IN HOSPITAL Sitagliptin Phosphate (Januvia) 25 MG TABLET 1 Tablet ORAL DAILY Qty = 30 Comments: NOT GIVEN IN HOSPITAL Lorazepam (Lorazepam) 0.5 MG TABLET 1 Tablet ORAL Every night Qty = 30 Comments: NOT GIVEN IN HOSPITAL Amitriptyline HCl (Amitriptyline HCl) 150 MG TABLET 1 Tablet ORAL Every night Qty = 30 Comments: NOT GIVEN IN HOSPITAL Start taking the following new medications: Rivaroxaban (Xarelto) 15 MG TABLET 1 Tablet ORAL TWICE DAILY Qty = 42 No Refills Instructions: PLEASE TAKE 1 TABLET TWICE DAILY FOR 3 WEEKS BEGINING TODAY 05/16 THEN START TAKING 20 MG ONCE DAILY THEREAFTER Comments: Last Taken: 05/16/16 Time: 10AM Rivaroxaban (Xarelto) 20 MG TABLET 1 Tablet ORAL DAILY Qty = 30 Refills = 1 Instructions: PLEASE TAKE 1 TABLET (20MG) DAILY (BEGINING May) Comments: NOT GIVEN IN HOSPITAL Copies To: MARLEY RADFORD,RAMÓN Castro; CHERYL RADFORD,PAU SAlex; SHARIF PASTOR Attending MD Review Statement Documenting Attending: ARIELLE RADFORD,ANTONY Castro Other Findings: agree with the above discharge plan.
[2016-05-16 06:23] VITALS: BP 158/80
[2016-05-16] MEDS ORDERED: XARELTO20 M2 PO (06:44)
[2016-05-16] MEDS ORDERED: XARELTO15 M1 PO (06:44)
--- NOTE | 2016-05-16 06:48 | Patient Discharge Instructions ---
Discharge Instructions General Discharge Information You were seen/treated for: PULMONARY EMBOLISM (BLOOD CLOT IN YOUR LUNG) Special Instructions: Please seek immediate medical attention if you develop increased shrtnes sof breath or pain while breathing Please follow up with Dr Coe within 1 week for evaluation of your lung nodules and management of your treatment for your lung clot. Please get labwork done in 1 week to assess your kidney (BEP). Prescription is provided for you. Please follow up with your primary care physician in 1 week Acute Coronary Syndrome Inclusion Criteria At DC or during hospital stay patient has or had the following: ACS DIAGNOSIS No Discharge Core Measures Meds if any: Prescribed or Continued at Discharge Meds if any: NOT Prescribed or Continued at Discharge Congestive Heart Failure Inclusion Criteria At DC or during hospital stay patient has or had the following: CHF DIAGNOSIS No Discharge Core Measures Meds if any: Prescribed or Continued at Discharge Meds if any: NOT Prescribed or Continued at Discharge Cerebrovascular accident Inclusion Criteria At DC or during hospital stay patient has or had the following: CVA/TIA Diagnosis No Discharge Core Measures Meds if any: Prescribed or Continued at Discharge Meds if any: NOT Prescribed or Continued at Discharge Venous thromboembolism Inclusion Criteria VTE Diagnosis No VTE Type NONE VTE Confirmed by (Test) NONE Discharge Core Measures - Per Current guidelines, there needs to be overlap - treatment for the first 5 days of Warfarin therapy. - If discharged on Warfarin prior to 5 days of - overlap therapy, the patient will need to be - assessed for post discharge needs including - *Post discharge parental anticoagulation - *Warfarin and/or parental anticoagulation education - *Follow up date to check INR post discharge At least 5 days overlap therapy as Inpatient No Meds if any: Prescribed or Continued at Discharge Note: Overlap Therapy is Warfarin and Anticoagulant Meds if any: NOT Prescribed or Continued at Discharge
[2016-05-16] MEDS ORDERED: LEVOFLOXACIN500 M1 PO (07:30)
--- NOTE | 2016-05-16 09:10 | PN- Housestaff ---
Subjective Follow-up For: Pulmonary embolism Subjective: Patient is seen and examined at bedside. Patient does endorse one episode of hemoptysis during the night, however she describes the blood is very minimal. She reports that she is feeling well, patient is found to be very active and in good mood was ambulating around the hospital floor on room air with no apparent distress. Patient denies any other acute complaints such as shortness of breath , pleuritic pain, chest pain, palpitation, fever, chills, dizziness, nausea, vomiting, abdominal pain or dysuria. No other acute overnight event reported by nursing staff Review of Systems Constitutional: Reports: see HPI. Objective Last 24 Hrs of Vital Signs/I&O Vital Signs Date Time Temp Pulse Resp B/P Pulse O2 O2 Flow FiO2 Ox Delivery Rate 05/16 0623 98.6 81 20 158/80 94 Room Air 05/16 0215 103 20 154/80 92 Room Air 05/16 0115 72 95 05/16 0000 CPAP 05/15 2253 76 92 05/15 2212 98.8 79 20 170/68 95 Room Air Intake & Output 05/16 1600 05/16 0800 05/16 0000 Intake Total 200 450 Output Total Balance 200 450 Intake, Oral 200 450 Physical Exam General Appearance: Alert, Oriented X3, Cooperative Other Physical Findings: Head: atraumatic, normal appearance Ears, Nose, Throat: normal pharynx, normal ENT inspection, moist mucus membranes Neck: normal inspection, supple, full range of motion Respiratory: normal breath sounds, chest non-tender, no respiratory distress Cardiovascular: regular rate/rhythm, normal peripheral pulses Gastrointestinal: normal bowel sounds, soft, non-tender Extremities: normal inspection, normal capillary refill, normal range of motion, no edema Skin: intact, normal color, warm/dry Assessment/Plan Assessment: This is a 61 years-old lady with past medical history of hypertension, obstructive sleep apnea on occassional CPAP, questionable asthma not on inhalers , diabetes mellitus, GERD, depression, presented to the emergency department with complaints of worsening shortness of breath that started 2 days ago. In the emergency department, she was hypotensive with blood pressure 78/56, pulse 95, temperature 96.5, respiration 18, oxygen saturation 97% on room air. Due to her blood pressure levels, she was admitted to the intensive care unit and is being managed for the following issues: #Hypotension, likely due to dehydration Resolved. Likely was secondary to bulimia secondary to decrease fluid intake few days prior to admission and possibly due to the PE. Would stopped. Patient is able to eat oral fluid intake encouraged. BP meds restarted. #Pulmonary embolism The patient's symptoms of acute onset shortness of breath, chest discomfort, and a high d-dimer was suggestive of pulmonary embolism. Initial CTA was not done because the patient had elevated creatinine. CT angiogram of the chest was done which showed pulmonary embolism. Heparin was stopped today, she was given 1 dose of enoxaparin, and was transitioned to oral Xarelto 15 mg by mouth twice a day to be administered for 3 weeks and then switch to 20 mg daily. Most likely pt will require 6 month therapy of anticoagulation as this was unprovoked PE and also patient has asignificant risk factor of what seems to be pulmonary malignancy based on the spiculated mass found on CT. Plan patient will be discharged on Xarelto 50 mg twice a day for 3 weeks then transition to Xarelto 20 mg by mouth daily. She is also given a prescription to get her lab work done for [facility] next week to check her kidney function in the setting of Xarelto use. #Pulmonary nodule CAT scan of chest done showed a rounded mass measuring spiculated 13mm in left upper lobe. This finding has been communicated with the patient and needs to be worked-up on. Concern for it being malignant has been discussed, and workup planned as soon as she is discharged within 30 days. Plan Reiterated to patient the importance of following up with Dr. Coe for evaluation of the spiculated pulmonary nodule #Obstructive sleep apnea -Plan to restart her CPAP during that time Renal/metabolic: #Acute kidney injury secondary to dehydration Improved and resolved status post hydration Endocrine: #Diabetes mellitus -Held her oral antihyperglycemic agents, and continuing the patient on insulin sliding scale. -Patient is on diabetic diet, CC3 Problem List: 1. Pulmonary embolism Pain Ratin Pain Location: Back Pain Goal: Remain pain free Pain Plan: Per pain pathway Tomorrow's Labs & Rationales: None. Patient is being discharged
--- NOTE | 2016-05-16 10:02 | PN- Pulmonary ---
Subjective HPI/Critical Care Issues: Stable Vss Objective Current Medications: Current Medications Sig/Ziyad Start time Last Medication Dose Route Stop Time Status Admin Acetaminophen 650 MG Q6P PRN 05/12 2330 AC PO Acetaminophen 1,000 MG Q6P PRN 05/12 2330 AC IV Albuterol Sulfate 2 PUF Q6-PRN PRN 05/12 2345 AC INH Amitriptyline HCl 100 MG AT BEDTIME 05/13 2200 AC 05/15 PO 2105 Ceftriaxone Sodium 1,000 MG DAILY 05/15 1000 DC 05/16 IV 0941 Docusate Sodium 100 MG TID PRN 05/13 1999 AC 05/16 PO 0942 Enoxaparin Sodium 100 MG BID 05/15 1000 DC 05/15 SC 1000 Insulin Aspart 0 TIDAC/HS 05/13 0800 AC 05/13 SC 0822 Lorazepam 0.5 MG QPM PRN 05/13 0030 AC PO 05/20 0029 Morphine Sulfate 1 MG Q4P PRN 05/13 1999 DC 05/16 IV 0617 Omeprazole 40 MG DAILY AC 05/13 0700 AC 05/16 PO 0616 Pravastatin Sodium 20 MG 1700 05/13 1700 AC 05/15 PO 1625 Pregabalin 25 MG DAILY 05/13 1224 AC 05/16 PO 0942 Rivaroxaban 15 MG BID 05/15 2200 AC 05/16 PO 0942 Senna/Docusate Sodium 1 TAB BID 05/14 1000 AC 05/16 PO 0942 Sodium Chloride 1,000 ML Q10H 05/13 0315 DC 05/15 IV 0005 Vital Signs & I&O Last 24 Hrs of Vitals and I&O: Vital Signs Date Time Temp Pulse Resp B/P Pulse O2 O2 Flow FiO2 Ox Delivery Rate 05/16 0623 98.6 81 20 158/80 94 Room Air 05/16 0215 103 20 154/80 92 Room Air 05/16 0115 72 95 05/16 0000 CPAP 05/15 2253 76 92 05/15 2212 98.8 79 20 170/68 95 Room Air 05/15 1646 98.4 05/15 1345 97.9 85 20 130/60 98 Room Air Intake & Output 05/16 1600 05/16 0800 05/16 0000 Intake Total 200 450 Output Total Balance 200 450 Intake, Oral 200 450 Impression/Plan Impression/Plan Impression/Plan: IMPRESSION: Pulmonary emboli involving the right middle and lower lobe pulmonary artery branches. Small bilateral pleural effusions with associated airspace disease. Spiculated left upper lobe pulmonary mass concerning for a pulmonary neoplasm. Recommendation is for correlation with PET/CT. The aforementioned was communicated to Dr. Yee at 1942 hours. DICTATED BY: GUNJAN MAJOR MD DATE/TIME DICTATED:05/13/161929 Exam General Appearance: well developed/nourished, no apparent distress, alert, awake , comfortable, obese Head: atraumatic, normal appearance Ears, Nose, Throat: normal pharynx, normal ENT inspection, moist mucus membranes Neck: normal inspection, supple, full range of motion Respiratory: normal breath sounds, chest non-tender, no respiratory distress Cardiovascular: regular rate/rhythm, normal peripheral pulses Gastrointestinal: normal bowel sounds, soft, non-tender Extremities: normal inspection, normal capillary refill, normal range of motion, no edema Skin: intact, normal color, warm/dry IMPRESSION This is a 61-year-old lady with diabetes, hypertension, depression, GERD, obstructive lung disease, ex-smoker, previous 7 mm lung nodule, obstructive sleep apnea noncompliant now comes in with Significant dizziness shortness of breath palpitations without having significant hypoxemia with previous history suggestive of a respiratory infection for which she had had antibiotics. Patient has had a cough. And as she felt significantly worse she came into the emergency room. There issues include * Transient hypotension which responded to IV fluids with PUlm emboli ( unprovoked pe) now better on heparin * Resolving Acute renal failure which is slowly improving in a lady with diabetes probably was related to hypovolemia, hypotension which is improving. Patient has been on SORAIDA inhibitor, NSAIDs, which may have exacerbated this * Recent history suggestive of pneumonia versus viral infection rule out any active infection * History of diabetes with no evidence suggestive of hypoglycemia * Obstructive sleep apnea not on CPAP on a regular basis * Obstructive lung disease with no active wheezing at this time patient is a remote smoker no PFTs before * CT suggestive of primary lung cancer and needs out pt work up and pt is aware Recommendation Xeralto 15 bid for three weeks, and then 20 qd ok to dc Discussed with patient extensively about her CT finding and she is aware of her diagnosis and she is willing to follow up with me as an outpatient Pt aware of pulm malignancy concerns and writtent instructions given to follow with me and she will make an appt and accepts all risks for noncompliance
--- NOTE | 2016-05-16 14:49 | PN- Att Addend ---
Attending MD Review Statement Attending Statement Attending MD Statement: examined this patient, discuss w/resident/PA/PAPER REEL OPERATOR, agreed w/resident/PA/PAPER REEL OPERATOR, reviewed EMR data (avail), discussed w/nursing, discussed w/ case mgmt Attending Assessment/Plan: Laboratory Tests 05/16/16 0640: Anion Gap 9, Estimated GFR > 60, BUN/Creatinine Ratio 5.6 L Vital Signs Date Time Temp Pulse Resp B/P Pulse O2 O2 Flow FiO2 Ox Delivery Rate 05/16 0623 98.6 81 20 158/80 94 Room Air 05/16 0215 103 20 154/80 92 Room Air 05/16 0115 72 95 05/16 0000 CPAP 05/15 2253 76 92 05/15 2212 98.8 79 20 170/68 95 Room Air 05/15 1646 98.4 Vitals stable, creatinine stable. d/w patient and newsagent the care plan. Pulmonary embolism- plan is to start pt on xarelto and continue her on for atleast 6 months, given that she may have underlying malignancy. Pt will f/u with pulmonology as an outpatient for her CT scan finding of spiculated nodule. Pt had one episode where she coughed up a small clot, explained to pt that if this happens again at home has a bigger clot, she needs to seek medical attention immediately. Pt was also explained the risks of bleeding with her being on xarelto- not limited to GI bleed,ICH and even . Pt understands that in case she falls down and hits her head she needs to come to the ER immediately. DC home in stable condition.
== END 2016-05-16 12:31 | disposition home health service (06) | DRG 134 ==
LOC: ENRESERVDT → ENRESERVTM → ERH 19:25 → ERHI 22:15 → CRI 22:15 → 2NA 22:15 → DELPENDDIS 22:15 → ENPENDDIS 22:15 → CRI 05-13 02:02 → 2NA 05-14 21:35
PROVIDERS: Emergency Medicine; Internal Medicine Pulmonary Disease; Preventive Medicine Public Health & General Preventive Medicine; Student in an Organized Health Care Education/Training Program; ADMIT Internal Medicine
PROC: 5A09357 Assistance with Respiratory Ventilation, Less than 24 Consecutive Hours, Continuous Positive Airway Pressure (ICD-10-PCS; principal; 2016-05-13)
DX: I26.99 Other pulmonary embolism without acute cor pulmonale (principal); K21.9 Gastro-esophageal reflux disease without esophagitis; G47.33 Obstructive sleep apnea (adult) (pediatric); J45.909 Unspecified asthma, uncomplicated; B18.2 Chronic viral hepatitis C; F32.9 Major depressive disorder, single episode, unspecified; N17.9 Acute kidney failure, unspecified; F41.9 Anxiety disorder, unspecified; I95.9 Hypotension, unspecified; R91.1 Solitary pulmonary nodule; E86.0 Dehydration; Z87.891 Personal history of nicotine dependence; E11.9 Type 2 diabetes mellitus without complications; I10 Essential (primary) hypertension; Z79.84 Long term (current) use of oral hypoglycemic drugs
CPT/HCPCS: 2NASP; CCU; ERO; 36415; 73562-LT; 82436; 87040; 87086; 93005; 93010; 93306; 93970; 96361; 96374; 96375; 99291; G0480; J0696; J1644; J1650; J2405; J7060

== ENCOUNTER 2016-07-17 16:16 | Emergency (ER) | payer OTHER ==
[~2016-07-17] VITALS: Ht 162.6 cm; Wt 104.3 kg
[~2016-07-17 16:16] MED LIST changes: +AMITRIPTYLINE150 M2 PO; +LEVOFLOXACIN500 M1 PO; +LYRICA100 M1 PO; +XARELTO15 M1 PO; +XARELTO20 M2 PO
[2016-07-17 16:30] VITALS: BP 144/83
--- NOTE | 2016-07-17 16:49 | ED CARDIAC/CP/PALPITATIONS ---
History of Present Illness General Chief Complaint: Chest Pain Stated Complaint: CHEST PAIN,SOB Source: patient Exam Limitations: no limitations Vital Signs & Intake/Output Vital Signs & Intake/Output Vital Signs Date Time Temp Pulse Resp B/P B/P Pulse O2 O2 Flow FiO2 Mean Ox Delivery Rate 07/17 1757 Room Air 07/17 1630 98.3 91 16 144/83 98 Room Air Allergies Coded Allergies: fentanyl (Intermediate, RASH 01/19/16) Reconcile Medications Albuterol Sulfate (Proair Hfa) 8.5 GM HFA.AER.AD 2 PUF INH PRN RESPIRATORY ( Reported) Amitriptyline HCl 100 MG TABLET 1 TAB PO QPM MENTAL HEALTH (Reported) Amitriptyline HCl 25 MG TABLET 1 TAB PO QPM MENTAL HEALTH (Reported) Amlodipine Besylate (Norvasc) 5 MG TABLET 1 TAB PO DAILY BP (Reported) Cholecalciferol (Vitamin D3) (Vitamin D) 2,000 UNIT TABLET 1 TAB PO DAILY SUPPLEMENT (Reported) Ciprofloxacin HCl (Cipro) 500 MG TABLET 1 TAB PO BID UTI Esomeprazole (Nexium) 40 MG CAPSULE.DR 1 CAP PO DAILY GI (Reported) Hydromorphone HCl (Dilaudid) 2 MG TABLET 1 TAB PO BIDP PRN PAIN Lisinopril 40 MG TABLET 1 TAB PO DAILY BP (Reported) Lorazepam 0.5 MG TABLET 1 TAB PO QPM SLEEP/ANXIETY (Reported) Pravastatin Sodium 20 MG TABLET 1 TAB PO DAILY CHOLESTEROL (Reported) Pregabalin (Lyrica) 100 MG CAPSULE 1 CAP PO BID NERVE PAIN (Reported) Rivaroxaban (Xarelto) 20 MG TABLET 1 TAB PO DAILY PULMONARY EMBOLISM PLEASE TAKE 1 TABLET (20MG) DAILY (BEGINING May) Sitagliptin Phosphate (Januvia) 25 MG TABLET 1 TAB PO DAILY DM (Reported) Triage Note: PT STATES SHE HAS CHEST PAIN AND SHE CAN'T BREATH. PT REPORTS THIS STARTED LAST NIGHT AND TODAY SHE HER VOICE IS GOING IN AND OUT. PT DENIES DIAPHORESIS Triage Nurses Notes Reviewed? yes HPI: Patient is a 61-year-old female presents complaining of chest pain, shortness of breath, abdominal pain, back pain. Symptoms 2-3 days. Chest pain is a sharp and heaviness sensation worsens with deep breath. Pain is currently localized to the left breast. Patient reports that she has a history of blood clots in her lung and a lung mass. Patient is not currently on chemotherapy or radiation. Patient reports that she was told to follow-up with the surgeon regarding her lung mass but has not seen the surgeon yet. Patient takes a blood thinning medication, she is unsure of the name. Patient has not been taking any medication for her pain. Pain is currently severe in her chest, abdomen, back. Pain in the low back worsens with movement. Mild nonproductive cough. Patient' s last bowel movement was this morning and normal. Patient denies fevers, chills, leg swelling, vomiting. (SHERMAN ZULUAGA) Past History Travel History Traveled to [place] past 21 day No Medical History Any Pertinent Medical History? see below for history Neurological: NONE EENT: NONE Cardiovascular: hypertension Respiratory: asthma Gastrointestinal: GERD, HEPATITIS C TREATED Hepatic: NONE Renal: NONE Musculoskeletal: osteoarthritis Psychiatric: depression Endocrine: diabetes Blood Disorders: NONE Cancer(s): NONE PROVIDER RELATIONS SPECIALIST/Reproductive: NONE History of MRSA: No History of VRE: No History of CDIFF: No Surgical History Surgical History: LUMBAR AND CERVICAL SURGERY Psychosocial History Who do you live with Patient/Self Services at Home Home Health Aide What is your primary language Polish Tobacco Use: Never used ETOH Use: denies use Illicit Drug Use: denies illicit drug use Family History Family History, If Any: Relation not specified for: *No pertinent family history Hx Contributory? No (SHERMAN ZULUAGA) Review of Systems Review of Systems Constitutional: Reports: malaise. Denies: chills, fever. EENTM: Reports: no symptoms. Respiratory: Reports: cough, short of breath. Cardiovascular: Reports: chest pain. GI: Reports: abdominal pain. Denies: diarrhea, vomiting. Genitourinary: Denies: dysuria (DENIES INCONTINENCE), frequency. Musculoskeletal: Reports: see HPI. Skin: Reports: no symptoms. Neurological/Psychological: Reports: no symptoms. Hematologic/Endocrine: Reports: no symptoms. Immunologic/Allergic: Reports: no symptoms. (SHERMAN ZULUAGA) Physical Exam Physical Exam General Appearance: well developed/nourished, alert, awake Head: atraumatic, normal appearance Eyes: Bilateral: normal appearance, PERRL, EOMI. Ears, Nose, Throat: normal pharynx, normal ENT inspection, hearing grossly normal Neck: normal inspection, supple, full range of motion Respiratory: normal breath sounds, chest non-tender, no respiratory distress, lungs clear Cardiovascular: regular rate/rhythm (NO APPRECIABLE MURMUR) Peripheral Pulses: 2+ dorsalis pedis (R), 2+ dorsalis pedis (L) Gastrointestinal: normal bowel sounds, soft, DIFFUSE ABDOMINAL TENDERNESS Back: normal inspection, normal range of motion, BILATERAL LUMBAR PARASPINAL TENDERNESS Extremities: normal inspection, normal capillary refill, normal range of motion, no edema Neurologic/Psych: no motor/sensory deficits, awake, alert, oriented x 3, normal gait, normal mood/affect Skin: intact, normal color, warm/dry Lymphatic: no anterior cervical ricco (SHERMAN ZULUAGA) Core Measures ACS in differential dx? Yes Severe Sepsis Present: No Septic Shock Present: No (LOIDA WEINER) Progress Initial ED EKG: NORMAL SINUS RHYTHM 89 BEATS PER MINUTE NORMAL AXIS, NORMAL INTERVALS, NONSPECIFIC st/t-WAVE ABNORMALITIES, NO SIGNIFICANT CHANGE FROM PREVIOUS ekg Prior EKG: unchanged Rhythm Strip: normal sinus rhythm Hand-Off Endorsed To: LOIDA WEINER Endorsed Time: 1724 Pending: CT, labs (SHERMAN ZULUAGA) Plan of Care: Orders Procedure Date/time Status Add-on Test (ER Only) 07/17 2000 Active CULTURE,URINE 07/17 1937 Active Telemetry/Network Security Administrator 07/17 170 Active URINALYSIS 07/17 1700 Complete TROPONIN LEVEL 07/17 1700 Complete PROTHROMBIN TIME 07/17 1700 Complete LIPASE 07/17 1700 Complete COMPREHENSIVE METABOLIC PANEL 07/17 1700 Complete CBC WITHOUT DIFFERENTIAL 07/17 1700 Complete EKG 07/17 1618 Active Laboratory Tests 07/17/16 193: Urine Color YEL, Urine Clarity HAZY H, Urine pH 6.5, Ur Specific [place] 1.010, Urine Protein NEG, Urine Ketones NEG, Urine Nitrite POS H, Urine Bilirubin NEG, Urine Urobilinogen 0.2, Ur Leukocyte Esterase LARGE H, Ur Microscopic SEDIMENT EXAMINED, Urine RBC 1-3, Urine WBC 15-25 H, Ur Epithelial Cells RARE, Urine Bacteria PACKD H, Urine Hemoglobin TRACE-INTACT, Urine Glucose NEG 07/17/16 1710: Anion Gap 11, Estimated GFR 56 L, BUN/Creatinine Ratio 13.0, Glucose 96, Calcium 8.5, Total Bilirubin 0.3, AST 19, ALT 29, Alkaline Phosphatase 67, Troponin I < 0.01, Total Protein 6.6, Albumin 3.6, Globulin 3.0, Albumin/ Globulin Ratio 1.2, Lipase 168, PT 15.1 H, INR 1.44 H, CBC w Diff NO MAN DIFF REQ, RBC 3.63 L, MCV 86.3, MCH 28.5, RDW 14.8 H, MPV 8.6, Gran % 47.6, Lymphocytes % 39.7, Monocytes % 10.5 H, Eosinophils % 1.6, Basophils % 0.6, Absolute Granulocytes 2.7, Absolute Lymphocytes 2.3, Absolute Monocytes 0.6, Absolute Eosinophils 0.1, Absolute Basophils 0, PUBS MCHC 33.0 Microbiology 07/17 1937 URINE ROUT: Urine Culture - RECD Patient had a PET/CT scan approximately 2.5 weeks ago. No uptake in the low back were patient is complaining of her pain. Plan to obtain CT imaging of her chest abdomen pelvis for evaluation of her symptoms. Discussed with Dr. Alves. 07/17/2016 5:25:31 PM: Signed out to Loida Dunlap PA-C with labs and CT scan pending (SHERMAN ZUULAGA) Case is discussed and signed out to me 1800 pending CAT scan labs Casing CAT scan reviewed and discussed with Dr. ALMAGUER agrees with plan 07/17/2016 7:57:07 PM on repeat evaluation patient is resting currently she denies pain, I had a long GILBERTO and her financial solutions advisor Dr. Coe. I discussed the patient plan of care I discussed with the patient at length all of their results. I had an extensive conversation regarding need for close follow up with their primary care physician this week as well as return precautions. I answered all of their questions, they feel comfortable with the plan and follow-up care. I discussed the medications that they will receive with the patient. I gave them signs and symptoms that could indicate an adverse reaction. I have advised them to limit their activities until they can see how they respond to the medication. (LOIDA WEINER) Differential Diagnosis: AMI, aortic dissection, costochondritis, musculoskeletal pain, myocarditis, pericarditis, pneumonia, pneumothorax, pulmonary embolism, PVCs/PACs, respiratory failure, unstable angina, malignancy Diagnostic Imaging: Viewed by Me: CT Scan. Discussed w/RAD: CT Scan. Radiology Impression: PATIENT: CARTER AGUILAR PRESENT AGE: 61 PATIENT ACCOUNT NO: [id number] : 53 LOCATION: [facility] ORDERING PHYSICIAN: SHERMAN CROW SERVICE DATE: 07/17/166689 EXAM TYPE: CAT - CT ABD & PELVIS W IV CONTRAST; CTA CHEST-PULMONARY EMBOLISM EXAMINATION: CT ANGIOGRAM OF THE CHEST WITH AND WITHOUT CONTRAST (CT PULMONARY ANGIOGRAM FOR PE); CT of the abdomen and pelvis with IV contrast. CLINICAL INFORMATION: Chest pain and dyspnea. Possible infection. History of lung cancer. Severe abdominal pain and low back pain. COMPARISON: PET CT scan done 2016. (Tumor in left upper lobe and metastatic node in the AP window). CTA of the chest on 05/13/2016. (Pulmonary emboli in the right middle and lower lobes). TECHNIQUE: Prior to contrast administration, noncontrast localization images were obtained. Subsequently, multidetector volumetric imaging was performed from the thoracic inlet to below the diaphragms following the administration of 95 mL Optiray 320 intravenous contrast. No contrast reaction reported. Sagittal, coronal, and MIP oblique sagittal reformatted images were obtained on the CT workstation, uploaded to PACS, and reviewed. Total exam dose-length product 1732 mGy-cm. FINDINGS: Wafer Polishing Worker view demonstrates a left upper lobe lung neoplasm near the apex. Mediastinal widening is present. QUALITY OF STUDY/CONTRAST BOLUS: Satisfactory PULMONARY ARTERIES: No central or segmental pulmonary emboli. THORACIC AORTA: No aneurysm or dissection. LUNG: The spiculated lung cancer in the apical segment of the left upper lobe measures 1.6 cm in diameter. There is evidence of extension to the adjacent pleural surface. There is mild dependent atelectasis in the lower and upper lobes. No additional pulmonary nodules are detected. PLEURA: No pleural effusion or pneumothorax. MEDIASTINUM: The prominent heart is unchanged. There is a minimal pericardial effusion. No evidence of septal bowing or right heart strain. The metastatic node located in the AP window has increased in size measuring 2 cm in greatest dimension. Another metastatic lymph node node is located just beneath the right inferior pulmonary vein above the right hemidiaphragm. This node measures close to 2 cm in diameter. Series 6, image 32. Also, there is fluid distention of the esophagus to the level of the GE junction. The patient is a small hiatal hernia. CHEST WALL/AXILLA: No axillary or internal mammary lymphadenopathy. LIVER, GALLBLADDER, AND BILIARY TREE: The liver is normal in size, shape, and attenuation. No focal hepatic lesion or biliary ductal dilatation is present. The gallbladder has been surgically removed. PANCREAS: Unremarkable. SPLEEN: Unremarkable. ADRENAL GLANDS: No evidence of metastatic disease. KIDNEYS AND URETERS: The kidneys are normal in size, and attenuation. No hydronephrosis, or hydroureter seen. There are small nonobstructing calculi in the lower poles of both kidneys. No perinephric stranding. BLADDER: Unremarkable. GASTROINTESTINAL TRACT: The small and large bowel are unremarkable. The appendix is unremarkable. High density material is seen just anterior to the lower cervical spine initial axial slices. This could represent retained oral contrast in a Zenker's diverticulum. Series 4, image 1. ABDOMINAL WALL: No significant hernia is appreciated. LYMPH NODES: No lymph nodes below the diaphragm. VASCULAR: Unremarkable. PELVIC VISCERA: Unremarkable. OSSEOUS STRUCTURES: Extensive disc disease at L4-L5 and L5-S1. No sign of metastatic disease. Facet arthropathy of the lower lumbar spine. IMPRESSION: 1. Spiculated lung nodule, apex left upper lobe representing the primary lung cancer. 2. Metastatic node just lateral to the AP window. Metastatic node just inferior to the right inferior pulmonary vein. Both have increased in size. 3. Dilated esophagus filled with fluid and a small hiatal hernia. 4. Question Zenker's diverticulum. 5. Probable nonobstructing calculi, one in each lower pole of both kidneys. 6. No pulmonary emboli. VTE: negative DICTATED BY: ALANIS ENGLISH MD DATE/TIME DICTATED:07/17 RN [facility] DATE/TIME TRANSCRIBED:07/17/161818 CONFIDENTIAL, DO NOT COPY WITHOUT APPROPRIATE AUTHORIZATION. <Electronically signed in Other Vendor System> SIGNED BY: ALANIS ENGLISH MD 07/17/161901 (LOIDA WEINER) Departure Departure Condition: Stable Departure Forms: Customer Survey General Discharge Information (SHERMAN ZULUAGA) PA/RECOVERY OPERATOR Co-Sign Statement Statement: ED Attending supervision documentation- [] I saw and evaluated the patient. I have also reviewed all the pertinent lab results and diagnostic results. I agree with the findings and the plan of care as documented in the PA's/RECOVERY OPERATOR's documentation. [X] I have reviewed the ED Record and agree with the PA's/RECOVERY OPERATOR's documentation. [] Additions or exceptions (if any) to the PAs/RECOVERY OPERATOR's note and plan are summarized below: [] (MARIA ISABEL RADFORD,AMY Harris) Departure Time of Disposition: 2011 Disposition: HOME OR SELF CARE Clinical Impression Primary Impression: Lung mass Secondary Impressions: UTI (urinary tract infection) Referrals: MARLEY RADFORD,SHARIF ABEBE (PCP/Family) GILBERTO RADFORD,HERNAN FUENTES MD,INESSA Sanchez JR Additional Instructions: Follow-up with Dr. Coe as well as oncologist Dr. kumar and thoracic surgeon dr fuentes tomorrow. Dilaudid for breakthrough pain use caution as this may make you drowsy. Cipro as directed for a urine infection A copy of your CAT scan and all the lab results are provided in her discharge paperwork. Your medication was sent to your pharmacy. Prescriptions: Current Visit Scripts Hydromorphone HCl (Dilaudid) 1 TAB PO BIDP PRN PAIN #10 TAB Ciprofloxacin HCl (Cipro) 1 TAB PO BID #14 TAB (LOIDA WEINER) Critical Care Note Critical Care Note Critical Care Time: non-applicable (LOIDA WEINER)
[2016-07-17 17:17] LABS: ABSOLUTE BASOPHIL COUNT 0 /CUMM (0.0-0.2); ABSOLUTE EOSINOPHIL COUNT 0.1 /CUMM (0.0-0.7); ABSOLUTE GRANULOCYTE CT 2.7 /CUMM (1.4-6.5); ABSOLUTE LYMPH COUNT 2.3 /CUMM (1.2-3.4); ABSOLUTE MONOCYTE COUNT 0.6 /CUMM (0.10-0.60); BASOPHIL % 0.6 % (0.0-2.0); EOSINOPHIL % 1.6 % (0-5); GRANULOCYTE % 47.6 % (42.2-75.2); HEMATOCRIT 31.3 % (37-47); MEAN CORPUSCULAR HGB 28.5 PG (27.0-31.0); MEAN CORPUSCULAR VOLUME 86.3 FL (81.0-99.0); MEAN PLATELET VOLUME 8.6 FL (7.4-10.4); PLATELET COUNT 185 /CUMM (130-400); RBC DISTRIBUTION WIDTH 14.8 % (11.5-14.5); RED BLOOD CELL CT 3.63 /CUMM (4.20-5.40); WHITE BLOOD CELL COUNT 5.7 /CUMM (4.8-10.8)
[2016-07-17 17:24] LABS: PT 15.1 SEC (9.4-12.5)
--- NOTE | 2016-07-17 19:02 | CT SCAN REPORT ---
EXAMINATION: CT ANGIOGRAM OF THE CHEST WITH AND WITHOUT CONTRAST (CT PULMONARY ANGIOGRAM FOR PE); CT of the abdomen and pelvis with IV contrast. CLINICAL INFORMATION: Chest pain and dyspnea. Possible infection. History of lung cancer. Severe abdominal pain and low back pain. COMPARISON: PET CT scan done 07/01/2016. (Tumor in left upper lobe and metastatic node in the AP window). CTA of the chest on 05/13/2016. (Pulmonary emboli in the right middle and lower lobes). TECHNIQUE: Prior to contrast administration, noncontrast localization images were obtained. Subsequently, multidetector volumetric imaging was performed from the thoracic inlet to below the diaphragms following the administration of 95 mL Optiray 320 intravenous contrast. No contrast reaction reported. Sagittal, coronal, and MIP oblique sagittal reformatted images were obtained on the CT workstation, uploaded to PACS, and reviewed. Total exam dose-length product 1732 mGy-cm. FINDINGS: Professional Nursing Tutor view demonstrates a left upper lobe lung neoplasm near the apex. Mediastinal widening is present. QUALITY OF STUDY/CONTRAST BOLUS: Satisfactory PULMONARY ARTERIES: No central or segmental pulmonary emboli. THORACIC AORTA: No aneurysm or dissection. LUNG: The spiculated lung cancer in the apical segment of the left upper lobe measures 1.6 cm in diameter. There is evidence of extension to the adjacent pleural surface. There is mild dependent atelectasis in the lower and upper lobes. No additional pulmonary nodules are detected. PLEURA: No pleural effusion or pneumothorax. MEDIASTINUM: The prominent heart is unchanged. There is a minimal pericardial effusion. No evidence of septal bowing or right heart strain. The metastatic node located in the AP window has increased in size measuring 2 cm in greatest dimension. Another metastatic lymph node node is located just beneath the right inferior pulmonary vein above the right hemidiaphragm. This node measures close to 2 cm in diameter. Series 6, image 32. Also, there is fluid distention of the esophagus to the level of the GE junction. The patient is a small hiatal hernia. CHEST WALL/AXILLA: No axillary or internal mammary lymphadenopathy. LIVER, GALLBLADDER, AND BILIARY TREE: The liver is normal in size, shape, and attenuation. No focal hepatic lesion or biliary ductal dilatation is present. The gallbladder has been surgically removed. PANCREAS: Unremarkable. SPLEEN: Unremarkable. ADRENAL GLANDS: No evidence of metastatic disease. KIDNEYS AND URETERS: The kidneys are normal in size, and attenuation. No hydronephrosis, or hydroureter seen. There are small nonobstructing calculi in the lower poles of both kidneys. No perinephric stranding. BLADDER: Unremarkable. GASTROINTESTINAL TRACT: The small and large bowel are unremarkable. The appendix is unremarkable. High density material is seen just anterior to the lower cervical spine initial axial slices. This could represent retained oral contrast in a Zenker's diverticulum. Series 4, image 1. ABDOMINAL WALL: No significant hernia is appreciated. LYMPH NODES: No lymph nodes below the diaphragm. VASCULAR: Unremarkable. PELVIC VISCERA: Unremarkable. OSSEOUS STRUCTURES: Extensive disc disease at L4-L5 and L5-S1. No sign of metastatic disease. Facet arthropathy of the lower lumbar spine. IMPRESSION: 1. Spiculated lung nodule, apex left upper lobe representing the primary lung cancer. 2. Metastatic node just lateral to the AP window. Metastatic node just inferior to the right inferior pulmonary vein. Both have increased in size. 3. Dilated esophagus filled with fluid and a small hiatal hernia. 4. Question Zenker's diverticulum. 5. Probable nonobstructing calculi, one in each lower pole of both kidneys. 6. No pulmonary emboli. VTE: negative
[2016-07-17] MEDS ORDERED: LYRICA100 M1 PO (19:54)
[2016-07-17] MEDS ORDERED: AMITRIPTYLINE H25 M2 PO (19:54)
[2016-07-17] MEDS ORDERED: AMITRIPTYLINE100 M2 PO (19:54)
[2016-07-17] MEDS ORDERED: DILAUDID2 M1 PO (20:13)
[2016-07-17] MEDS ORDERED: CIPRO500 M1 PO (20:13)
== END 2016-07-17 20:50 ==
LOC: ERH 16:16
PROVIDERS: Physician Assistant
DX: R07.89 Other chest pain (principal); N39.0 Urinary tract infection, site not specified; R91.8 Other nonspecific abnormal finding of lung field
CPT/HCPCS: 74177; 81001; 87086; 93005; 93010; 96374

== ENCOUNTER 2016-07-28 17:20 | Inpatient (IN) | payer OTHER ==
[~2016-07-28] VITALS: Ht 162.6 cm; Wt 108.9 kg
[~2016-07-28 17:20] MED LIST changes: +AMITRIPTYLINE H25 M2 PO; +CIPRO500 M1 PO; +DILAUDID2 M1 PO
--- NOTE | 2016-07-28 17:27 | ED GENERAL ADULT ---
History of Present Illness General Chief Complaint: General Adult Stated Complaint: LEFT PNEUMOTHORAX S/P LUNG BIOPSY Source: patient Exam Limitations: no limitations Vital Signs & Intake/Output Vital Signs & Intake/Output Vital Signs Date Time Temp Pulse Resp B/P B/P Pulse O2 O2 Flow FiO2 Mean Ox Delivery Rate 07/29 1600 98 Nasal 2.0L Cannula 07/29 1600 97.9 77 24 128/72 100 Nasal 2.0L Cannula 07/29 1200 97 Nasal 2.0L Cannula 07/29 1020 Nasal 2.0L Cannula 07/29 1019 96 Nasal 2.0L Cannula 07/29 0933 70 131/60 07/29 0841 69 136/80 07/29 0800 97.3 83 24 136/80 97 Nasal 2.0L Cannula 07/29 0800 98 Nasal 2.0L Cannula 07/29 0604 100 Nasal 2.0L Cannula 07/29 0414 99 Nasal 2.0L Cannula 07/29 0210 99 Nasal 2.0L Cannula 07/29 0032 99 Nasal 2.0L Cannula 07/29 0000 98.1 74 16 136/70 99 Nasal 2.0L Cannula 07/28 2218 96.9 88 20 148/96 99 Nasal 2.0L Cannula 07/28 2130 80 20 147/87 99 Room Air 07/28 2044 97.2 77 18 149/73 99 Nasal 2.0L Cannula 07/28 1935 97.1 88 20 166/78 98 Nasal 2.0L Cannula 07/28 1904 96.7 73 18 163/108 05/ 1838 96.7 73 18 163/108 98 Room Air 07/28 1747 100 Nasal 2.0L Cannula 07/28 1741 97.8 87 20 156/75 98 Room Air 05 1737 97.1 84 18 156/75 97 Room Air ED Intake and Output 07/29 0000 07/28 1200 Intake Total 300 Output Total Balance 300 Intake, Oral 300 Patient 230 lb Weight Weight Reported by Patient Measurement Method Allergies Coded Allergies: adhesive (Mild, RASH 07/28/16) Reconcile Medications Albuterol Sulfate (Proair Hfa) 8.5 GM HFA.AER.AD 2 PUF INH PRN RESPIRATORY ( Reported) Amitriptyline HCl 100 MG TABLET 1 TAB PO QPM MENTAL HEALTH (Reported) Amitriptyline HCl 25 MG TABLET 1 TAB PO QPM MENTAL HEALTH (Reported) Amlodipine Besylate (Norvasc) 5 MG TABLET 1 TAB PO DAILY BP (Reported) Cholecalciferol (Vitamin D3) (Vitamin D) 2,000 UNIT TABLET 1 TAB PO DAILY SUPPLEMENT (Reported) Esomeprazole (Nexium) 40 MG CAPSULE.DR 1 CAP PO DAILY GI (Reported) Lisinopril 40 MG TABLET 1 TAB PO DAILY BP (Reported) Lorazepam 0.5 MG TABLET 1 TAB PO QPM SLEEP/ANXIETY (Reported) Oxycodone HCl/Acetaminophen (Percocet 5-325 MG Tablet) 5 MG-325 MG TABLET 1-2 TAB PO Q4P PRN PAIN Pravastatin Sodium 20 MG TABLET 1 TAB PO DAILY CHOLESTEROL (Reported) Pregabalin (Lyrica) 100 MG CAPSULE 1 CAP PO BID NERVE PAIN (Reported) Rivaroxaban (Xarelto) 20 MG TABLET 1 TAB PO DAILY PULMONARY EMBOLISM PLEASE TAKE 1 TABLET (20MG) DAILY (BEGINING May) Sitagliptin Phosphate (Januvia) 25 MG TABLET 1 TAB PO DAILY DM (Reported) Triage Nurses Notes Reviewed? yes Onset: Abrupt Duration: hour(s): Timing: recent history HPI: 07/28/16 6:54 PM 61-year-old female presents to the emergency department with left-sided pneumothorax status post lung biopsy. The patient had a lung biopsy done earlier today. She developed an iatrogenic pneumothorax. Subsequent to the pneumothorax the chest tube was placed by the invasive radiologist and according to him there is full expansion of the lung. The patient however is being placed in observation under the thoracic surgeon's service in order to facilitate serial pulse oximetry readings were, and reevaluate the patient in the a.m. The onset of the symptoms were abrupt, the duration was just today, the severity was significant as her symptoms required her to come to the emergency department for care Past History Travel History Traveled to [place] past 21 day No Medical History Any Pertinent Medical History? 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 No Review of Systems Review of Systems Constitutional: Denies: fever. EENTM: Reports: no symptoms. Respiratory: Denies: short of breath. Cardiovascular: Denies: chest pain. GI: Denies: abdominal pain. Genitourinary: Reports: no symptoms. Musculoskeletal: Reports: no symptoms. Skin: Reports: no symptoms. Neurological/Psychological: Reports: no symptoms. Hematologic/Endocrine: Reports: see HPI, bleeding. Physical Exam Physical Exam General Appearance: well developed/nourished, alert, awake, anxious, mild distress Head: atraumatic, normal appearance Eyes: Bilateral: normal appearance, PERRL, EOMI. Ears, Nose, Throat: normal ENT inspection Neck: supple, full range of motion Respiratory: no respiratory distress, lungs clear, left-sided anterior small- caliber chest tube Cardiovascular: regular rate/rhythm Peripheral Pulses: 4+ radial (R), 4+ radial (L) Gastrointestinal: soft, non-tender Back: decreased range of motion Extremities: normal inspection, normal range of motion Neurologic/Psych: no motor/sensory deficits, awake, alert, oriented x 3 Skin: intact, normal color, warm/dry Core Measures ACS in differential dx? No CVA/TIA Diagnosis: No Severe Sepsis Present: No Septic Shock Present: No Progress Differential Diagnoses I considered the following diagnoses in my evaluation of the patient: [ Pneumothorax, hemothorax, tension pneumothorax, hypoxia,] Plan of Care: Orders Procedure Date/time Status XRY-PORTABLE CHEST XRAY 07/30 0600 Active Heart Healthy Diet 07/29 B Active Misc Message 07/29 1347 Active RT: Evaluation 07/29 1018 Active Wound Care/Dressing 07/29 0856 Active MISSING MEDICATION FORM 07/29 0840 Active FingerStick- Glucose 07/29 0656 Active THERAPIST ORDERS 07/29 0212 Complete Teach/Educate 07/29 003 Active Pain Treatment and Response 07/29 003 Active Nutritional Intake, Monitor 07/29 0031 Active Isolation 07/29 0031 Active Patient Care Conference 07/29 0031 Active THERAPIST ORDERS 07/29 UNK Complete OXYGEN SETUP (GEN) 07/29 UNK Complete Admit to inpatient 07/29 UNK Active Nursing Misc 07/29 UNK Complete ACTIVE SURVEILLANCE NARES 07/28 1821 Active Pathway - chart 07/28 1742 Active Code Status 07/28 1742 Active Patient Data 07/28 1738 Active EKG 07/28 1724 Active TRC EVALUATION (GEN) 07/28 UNK Complete OXYGEN SETUP (GEN) 07/28 UNK Complete VTE Mechanical Prophylaxis 07/28 UNK Active Vital Signs 07/28 UNK Active Drains/Tubes 07/28 UNK Active Intake & Output 07/28 UNK Active Activity/Ambulation 07/28 UNK Active Current Medications Sig/Ziyad Start time Last Medication Dose Stop Time Status Admin Albuterol Sulfate 3 ML BID 07/29 2200 AC 07/29 (Proventil) 1014 Pravastatin Sodium 20 MG 1700 07/29 1700 AC 07/29 (Pravachol) 1557 Amlodipine Besylate 5 MG DAILY 07/29 1000 AC 07/29 (Norvasc) 0933 Enoxaparin Sodium 40 MG DAILY 07/29 1000 AC 07/29 (Lovenox) 0841 Lisinopril 40 MG DAILY 07/29 1000 AC 07/29 (Prinivil) 0841 Rivaroxaban 20 MG DAILY 07/29 1000 CAN (Xarelto) Sitagliptin Phosphate 25 MG DAILY 07/29 1000 AC 07/29 (JANUVIA) 0841 Omeprazole 40 MG DAILY AC 07/29 0700 AC 07/29 (Prilosec) 0753 Albuterol Sulfate 2 PUF BID 07/28 2200 AC 07/29 (Ventolin) 0841 Amitriptyline HCl 125 MG AT BEDTIME 07/28 2200 AC 07/28 (Elavil 50 MG Tablet) 2214 Lorazepam 0.5 MG QPM 07/28 2200 AC 07/28 (Ativan) 08/04 2159 2214 Pregabalin 100 MG BID 07/28 2200 AC 07/29 (Lyrica) 0841 Acetaminophen 650 MG Q6PRN PRN 07/28 1745 AC (Tylenol) Ondansetron HCl 4 MG Q8P PRN 07/28 1745 AC (Zofran) Oxycodone/ 1 TAB Q4P PRN 07/28 1745 AC 07/29 Acetaminophen 1314 (Percocet) Microbiology 07/28 2315 UPPER RESP: Surveillance Culture - RECD 07/28 1821 GI: Surveillance Culture - CAN Cancelled: Cancelled via OE: PT REFUSES Initial ED EKG: NSR Departure Departure Disposition: STILL A PATIENT Condition: Stable Clinical Impression Primary Impression: Pneumothorax Referrals: SHARIF PASTOR (PCP/Family) Departure Forms: Customer Survey General Discharge Information Prescriptions: Current Visit Scripts Oxycodone HCl/Acetaminophen (Percocet 5-325 MG Tablet) 1-2 TAB PO Q4P PRN PAIN #20 TAB Comments Chest x-ray today MPRESSION: Placement of left-sided chest tube. Reduction volume left-sided pneumothorax since prior exam with small residual apical pneumothorax remaining. 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 <Electronically signed in Other Vendor System> SIGNED BY: HERNAN VALDEZ MD 07/28/162234 Observation Note Spoke With: EUFEMIA RADFORD,INESSA Sanchez JR Physician Advisor Notified: AMY NEWSOME DO Place Patient In: Non-ED OBS Care Area Rationale for Observation: My rational for observation is as follows [PATIENT NEEDS , SERIAL PO%,]. Critical Care Note Critical Care Note Critical Care Time: non-applicable
--- NOTE | 2016-07-28 17:44 | NUR ---
PT GIVEN COLD WATER AFTER OK FROM DR NEWSOME. PT HAS NO OTHER COMPLAINTS, AWARE OF PLAN FOR ADMIT FOR OBS, AWAITING BED ASSIGNMENT, USING CELL PHONE. REPORTS OCC BLOOD-TINGED SPUTUM BUT NO SIGNIFICANT BLEEDING.
--- NOTE | 2016-07-28 17:44 | NUR ---
PT BROUGHT BY STRETCHER FROM CT SCAN FOR ADMISSION TO SURGICAL SERVICE. PT HAD A SCHEDULED OUTPATIENT BIOPSY OF LEFT LUNG NODULE AND DEVELOPED LEFT PNEUMOTHORAX AFTER BIOPSY. LEFT ANTERIOR CHEST TUBE WAS INSERTED UNDER CT GUIDANCE, AIR WAS REMOVED BY MD USING SYRINGE AND CHEST TUBE CONNECTED TO WATER SEAL. PT ARRIVES ALERT, C/O SOME PAIN AT SITE OF TUBE, NO SOB, SATS 98 ON RA (ON 2L NC CURRENTLY PER IR GUIDELINES), CLEAR LUNG SOUNDS IN ALL TURNER, CHEST TUBE SITE COVERED WITH TEGADERM AND C/D/I. DR NEWSOME AWARE OF PT'S ARRIVAL AND HAS SPOKEN WITH MD.
--- NOTE | 2016-07-28 17:59 | NUR ---
MEDICATED WITH 1 PERCOCET FOR PAIN
--- NOTE | 2016-07-28 18:34 | NUR ---
MEAL TRAY ORDERED. RESEARCH DEVELOPMENT MANAGER GIVEN NAME OF IV FLUID TO ORDER FROM SUPPLY ROOM.
--- NOTE | 2016-07-28 18:40 | NUR ---
SURGICAL PA PAGED REGARDING ORDER FOR CHEST TUBE SUCTION. PER CIRCULATING RN IN OR, PA IS CURRENTLY SCRUBBED IN BUT WANTS LCWS.
--- NOTE | 2016-07-28 18:56 | NUR ---
PT TO ROOM 102
--- NOTE | 2016-07-28 19:02 | Cons- Pulmonary ---
General Information and HPI Consulting Request Date of Consult: 07/28/16 Requested By: ER History of Present Illness: This is a 61-year-old lady with diabetes, hypertension, depression, GERD, obstructive lung disease, ex-smoker, previous 7 mm lung nodule, obstructive sleep apnea noncompliant now comes in for a biopsy of left upper lobe nodule. SHe also has solitary ap window lymphnode After biosy she developed a large ptx and is being admitted Recently she had an unprovoked pe and is on xeralto which was held for biopsy Recent pft showed normal pft with sig airtrapping Pt has poor insight and is prob noncompliant with meds NOw s/p chest tube and is much better N0 sig airleak noted ROS neg Allergies/Medications Allergies: Coded Allergies: adhesive (Mild, RASH 07/28/16) Home Med List: Albuterol Sulfate (Proair Hfa) 8.5 GM HFA.AER.AD 2 PUF INH PRN RESPIRATORY ( Reported) Amitriptyline HCl 100 MG TABLET 1 TAB PO QPM MENTAL HEALTH (Reported) Amitriptyline HCl 25 MG TABLET 1 TAB PO QPM MENTAL HEALTH (Reported) Amlodipine Besylate (Norvasc) 5 MG TABLET 1 TAB PO DAILY BP (Reported) Cholecalciferol (Vitamin D3) (Vitamin D) 2,000 UNIT TABLET 1 TAB PO DAILY SUPPLEMENT (Reported) Esomeprazole (Nexium) 40 MG CAPSULE.DR 1 CAP PO DAILY GI (Reported) Lisinopril 40 MG TABLET 1 TAB PO DAILY BP (Reported) Lorazepam 0.5 MG TABLET 1 TAB PO QPM SLEEP/ANXIETY (Reported) Pravastatin Sodium 20 MG TABLET 1 TAB PO DAILY CHOLESTEROL (Reported) Pregabalin (Lyrica) 100 MG CAPSULE 1 CAP PO BID NERVE PAIN (Reported) Rivaroxaban (Xarelto) 20 MG TABLET 1 TAB PO DAILY PULMONARY EMBOLISM PLEASE TAKE 1 TABLET (20MG) DAILY (BEGINING May) Sitagliptin Phosphate (Januvia) 25 MG TABLET 1 TAB PO DAILY DM (Reported) Review of Systems Review of Systems Constitutional: Reports: see HPI. 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 self Services at Home: Home Health Aide Primary Language: Thai Functional Ability ADLs Independent: dressing, eating, toileting, bathing. Ambulation: independent IADLs Independent: shopping, housework, finances, food prep, telephone, transportation. Unknown: medication admin. Exam & Diagnostic Data Last 24 Hrs of Vital Signs/I&O Vital Signs Date Time Temp Pulse Resp B/P B/P Pulse O2 O2 Flow FiO2 Mean Ox Delivery Rate 07/28 1838 96.7 73 18 163/108 98 Room Air 07/28 1747 100 Nasal 2.0L Cannula 07/28 174 97.8 87 20 156/75 98 Room Air 07/28 1737 97.1 84 18 156/75 97 Room Air Last 48 Hrs of Labs/Stefan: pending Assessment/Plan Impression/Plan: Exam General Appearance: well developed/nourished, no apparent distress, alert, awake , comfortable, obese Head: atraumatic, normal appearance Ears, Nose, Throat: normal pharynx, normal ENT inspection, moist mucus membranes Neck: normal inspection, supple, full range of motion Respiratory: normal breath sounds, chest non-tender, no respiratory distress left sided chest tube noted with no sig airleak Cardiovascular: regular rate/rhythm, normal peripheral pulses Gastrointestinal: normal bowel sounds, soft, non-tender Extremities: normal inspection, normal capillary refill, normal range of motion, no edema Skin: intact, normal color, warm/dry This is a 61-year-old lady with diabetes, hypertension, depression, GERD, obstructive lung disease, ex-smoker, obstructive sleep apnea noncompliant now comes in with a large ptx after a lung biopsy for pet positive left upperlobe lesion ISSUES PTX post lung biopsy now better after chest tube REcent sig unprovoked PE on xeralto which is held for biopsy Mild copd with airtrapping with normal pft with reduced dlco recently 1.8 cm lung nodule with a positive ap window lymphnode by pet needs further eval , now s/p biopsy and pt may need biopsy of ap window lymphnode DM SANJUANITA noncompiant HTN Depression and anxiety and other psych issues followed by psych on tricyclic GERD 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
--- NOTE | 2016-07-28 19:14 | NUR ---
PT EATING DINNER. SEEN BY DR ROACH, INFORMED MD OF PT'S INCREASED BP AND PT NOT TAKING HER MEDS AT HOME TODAY WITH SUSPECTED POOR COMPLIANCE IN GENERAL. NORVASC ORDERED BY DR NEWSOME AT DR ROACH'S REQUEST AND GIVEN NOW.
--- NOTE | 2016-07-28 19:29 | NUR ---
REPORT CALLED TO ABHI IN ICU. INFORMED THAT MIVF STILL HAS NOT BEEN OBTAINED FROM [facility] SUP[facility]Y; PT IS TAKING PO WITHOUT ISSUES. ICU WILL HANG FLUIDS.
--- NOTE | 2016-07-28 19:37 | NUR ---
TRANSPORT CALLED AND ASKED TO COME AT OR AFTER 1944 PER REQUEST OF ICU NURSE. PT AWARE OF PENDING TRANSFER.
--- NOTE | 2016-07-28 19:44 | NUR ---
TRANSPORT PUT ON HOLD AT REQUEST OF ICU DUE TO QUESTION OF MOST APPROPRIATE NURSING UNIT PLACEMENT FOR THIS PT. ICU TO CALL BACK WITH RESOLUTION.
--- NOTE | 2016-07-28 20:50 | NUR ---
CALL RECIEVED FROM SURGICAL PA; REQUESTED TO BE PAGED AT 416 WHEN CXR HAS BEEN READ. ICU NURSE AWARE OF SAME.
--- NOTE | 2016-07-28 20:58 | NUR ---
PCXR AT BEDSIDE
--- NOTE | 2016-07-28 22:15 | NUR ---
NIGHT MEDS GIVEN. PT UP TO COMMODE AT BEDSIDE WITHOUT DIFFICULTY. STILL WAITING FOR XRAY RESULTS. VSS, NO AIR LEAK IN CHEST TUBE AND NO OUTPUT.
--- NOTE | 2016-07-28 22:35 | RADIOLOGY REPORT ---
EXAMINATION: XR PORTABLE CHEST CLINICAL INFORMATION: Assess chest tube after tube placement COMPARISON: CT chest tube insertion 07/28/2016. CT lung biopsy 07/28/2016 TECHNIQUE: Portable frontal view of the chest was obtained. 9:00 PM FINDINGS: Pigtail chest tube projects over the medial left upper hemithorax projecting over the arch of the aorta. The previously seen left-sided pneumothorax has reduced in volume with a small residual apical pneumothorax remaining. No midline shift. No depression of diaphragm or other evidence for tension of the pneumothorax. IMPRESSION: Placement of left-sided chest tube. Reduction volume left-sided pneumothorax since prior exam with small residual apical pneumothorax remaining.
--- NOTE | 2016-07-28 22:36 | NUR ---
SURGICAL PA PAGED AT 416 TO INFORM OF CXR RESULTS READY. AWAITING REPLY.
--- NOTE | 2016-07-28 23:09 | History & Physical ---
NALLELY XAVIER 07/28/16 2306: General Information and HPI History of Present Illness: 61yoF with iatrogenic ptx sp IR guided bx of lung nodule. Pigtail CT placed by IR immediately after ptx discovered with good results. follow up cxr shows tiny residual left apical ptx Pmhx dm,pe on xarelto, htn,dep,gerd, obstuctive lung disease, former smoker, boaz. 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 self Services at Home: Home Health Aide Primary Language: Ethiopian Functional Ability ADLs Independent: dressing, eating, toileting, bathing. Ambulation: independent IADLs Independent: shopping, housework, finances, food prep, telephone, transportation. Unknown: medication admin. Review of Systems Review of Systems Constitutional: Reports: see HPI. Exam & Diagnostic Data Last 24 Hrs of Vital Signs/I&O Vital Signs Date Time Temp Pulse Resp B/P B/P Pulse O2 O2 Flow FiO2 Mean Ox Delivery Rate 07/28 2217 96.9 88 20 148/96 99 Nasal 2.0L Cannula 07/28 2130 80 20 147/87 99 Room Air 07/28 2044 97.2 77 18 149/73 99 Nasal 2.0L Cannula 07/28 1935 97.1 88 20 166/78 98 Nasal 2.0L Cannula 07/28 1904 96.7 73 18 163/108 07/28 1838 96.7 73 18 163/108 98 Room Air 07/28 1747 100 Nasal 2.0L Cannula 07/28 1741 97.8 87 20 156/75 98 Room Air 07/28 1737 97.1 84 18 156/75 97 Room Air Physical Exam: patient sleeping comfortably, did not wake. gen: nad cardL s1s2 rrr pulm: no audible wheeze CT: no AL, scant serosang in pleurovac, to [facility] Assessment/Plan Assessment: A: left sided iatrogenic ptx follwoing ir bx, sp ir placed left chest tube with residual ptx, otherswise stable. P: ct to [facility], supplemental o2. am cxr- ?waterseal if ok. prn pain meds. home meds. ?when restart xarelto As Ranked By This Provider Problem List: 1. Pneumothorax 2. Lung mass Core Measures/Miscellaneous Acute Coronary Syndrome ACS Diagnosis: No Cerebrovascular Accident CVA/TIA Diagnosis: No Congestive Heart Failure CHF Diagnosis: No Venous Thromboembolism VTE Risk Factors: Age > 40 No [facility] VTE prophylaxis d/t: No contraindications No VTE Pharm Prophylaxis d/t: No contraindications VTE Diagnosis: No VTE Type: NONE VTE Confirmed by (Test): NONE Severe Sepsis Severe Sepsis Present: No Septic Shock Septic Shock Present: No Miscellaneous Documentation Attending Case Discussed With: EUFEMIA RADFORD,INESSA Sanchez JR Primary Care Physician: SHARIF PASTOR Patient sees these Specialists none Level of Patient Care: Critical Care (CRI) INESSA FALL MD 07/30/16 1058: General Information and HPI Allergies/Medications Home Med list Albuterol Sulfate (Proair Hfa) 8.5 GM HFA.AER.AD 2 PUF INH PRN RESPIRATORY ( Reported) Amitriptyline HCl 100 MG TABLET 1 TAB PO QPM MENTAL HEALTH (Reported) Amitriptyline HCl 25 MG TABLET 1 TAB PO QPM MENTAL HEALTH (Reported) Amlodipine Besylate (Norvasc) 5 MG TABLET 1 TAB PO DAILY BP (Reported) Cholecalciferol (Vitamin D3) (Vitamin D) 2,000 UNIT TABLET 1 TAB PO DAILY SUPPLEMENT (Reported) Esomeprazole (Nexium) 40 MG CAPSULE.DR 1 CAP PO DAILY GI (Reported) Lisinopril 40 MG TABLET 1 TAB PO DAILY BP (Reported) Lorazepam 0.5 MG TABLET 1 TAB PO QPM SLEEP/ANXIETY (Reported) Oxycodone HCl/Acetaminophen (Percocet 5-325 MG Tablet) 5 MG-325 MG TABLET 1-2 TAB PO Q4P PRN PAIN Pravastatin Sodium 20 MG TABLET 1 TAB PO DAILY CHOLESTEROL (Reported) Pregabalin (Lyrica) 100 MG CAPSULE 1 CAP PO BID NERVE PAIN (Reported) Rivaroxaban (Xarelto) 20 MG TABLET 1 TAB PO DAILY PULMONARY EMBOLISM PLEASE TAKE 1 TABLET (20MG) DAILY (BEGINING May) Sitagliptin Phosphate (Januvia) 25 MG TABLET 1 TAB PO DAILY DM (Reported) Attending MD Review Statement Attending Statement Attending MD Statement: examined this patient, discuss w/resident/PA/CT TECHNOLOGIST, discussed with family Attending Assessment/Plan: The patient has a fairly good size pneumothorax status post biopsy. After discussion with the son and with interventional radiology we feel it is best for her to remain in the hospital with concerns about her ability to manage this device as an outpatient. Interventional radiology is making arrangements for reevaluation in the morning with a clamping trial and hopeful removal of the catheter.
[2016-07-29] VITALS: BP 136/70
--- NOTE | 2016-07-29 00:22 | Admission Core Measures ---
Admission Meds I reviewed the following Meds: Current Medications Sig/Ziyad Start time Last Medication Dose Stop Time Status Admin Acetaminophen 650 MG Q6PRN PRN 07/28 174 AC (Tylenol) Albuterol Sulfate 2 PUF BID 07/28 220 AC (Ventolin) Amitriptyline HCl 125 MG AT BEDTIME 07/28 2200 AC 07/28 (Elavil 50 MG Tablet) 2214 Amlodipine Besylate 5 MG DAILY 07/29 1000 AC (Norvasc) Enoxaparin Sodium 40 MG DAILY 07/29 1000 AC (Lovenox) Lisinopril 40 MG DAILY 07/29 1000 AC (Prinivil) Lorazepam 0.5 MG QPM 07/28 220 AC 07/28 (Ativan) 08/04 215 221 Omeprazole 40 MG DAILY AC 07/29 0700 AC 07/28 (Prilosec) 2332 Ondansetron HCl 4 MG Q8P PRN 07/28 174 AC (Zofran) Oxycodone/ 1 TAB Q4P PRN 07/28 1745 AC 07/28 Acetaminophen 2333 (Percocet) Potassium Chloride 20 MEQ .Q20H 07/28 1745 AC 07/28 (KCl 20MEQ in D5W 2000 2NS 1000ML) Dextrose/Sodium 1,000 ML Chloride (D5W-03/31 Normal Saline 1000ML) Pravastatin Sodium 20 MG 1700 07/29 1700 AC (Pravachol) Pregabalin 100 MG BID 07/28 2200 AC 07/28 (Lyrica) 2214 Rivaroxaban 20 MG DAILY 07/29 1000 AC (Xarelto) Sitagliptin Phosphate 25 MG DAILY 07/29 1000 AC (JANUVIA) Acute Coronary Syndrome Inclusion Criteria ACS Diagnosis No Inpatient Core Measures LDL Reminder: If No, please order W/I first 24hr of stay Congestive Heart Failure Inclusion Criteria CHF Diagnosis No Cerebrovascular accident Inclusion Criteria CVA/TIA Diagnosis No Inpatient Core Measures Bedside Swallow Eval Reminder: If BSE failed, place ST order Antithrombotic Reminder: Order Antithrombotic Medication by end of day 2 Antithrombotic Reminder: Document Reason Antithrombotic Not ordered by end of day 2 AFIB/Flutter Reminder: If Present, add to problem list AFIB/Flutter Reminder: Order Anticoag Medication for pts with AFIB/Flutter Atherosclerosis Reminder: If Present, add to problem list LDL Reminder: If No, please order W/I first 24hr of stay PT Order Reminder: If No, please order Venous thromboembolism Inpatient Core Measures VTE Risk Factors: Age > 40 [facility] prophylaxis d/t No contraindications No VTE Pharm Prophylaxis d/t No contraindications Inclusion Criteria - Per Current guidelines, there needs to be overlap - treatment for the first 5 days of Warfarin therapy. - Parenteral Anticoagulation (IV or SC) needs to be - given along with Warfarin therapy. VTE Diagnosis No VTE Type NONE VTE Confirmed by (Test) NONE Problem List As ranked by this Provider includes Assessment & Plan 1. Lung nodule seen on imaging study 2. Pneumothorax HOME MEDS Home Med List Albuterol Sulfate (Proair Hfa) 8.5 GM HFA.AER.AD 2 PUF INH PRN RESPIRATORY ( Reported) Amitriptyline HCl 100 MG TABLET 1 TAB PO QPM MENTAL HEALTH (Reported) Amitriptyline HCl 25 MG TABLET 1 TAB PO QPM MENTAL HEALTH (Reported) Amlodipine Besylate (Norvasc) 5 MG TABLET 1 TAB PO DAILY BP (Reported) Cholecalciferol (Vitamin D3) (Vitamin D) 2,000 UNIT TABLET 1 TAB PO DAILY SUPPLEMENT (Reported) Esomeprazole (Nexium) 40 MG CAPSULE.DR 1 CAP PO DAILY GI (Reported) Lisinopril 40 MG TABLET 1 TAB PO DAILY BP (Reported) Lorazepam 0.5 MG TABLET 1 TAB PO QPM SLEEP/ANXIETY (Reported) Pravastatin Sodium 20 MG TABLET 1 TAB PO DAILY CHOLESTEROL (Reported) Pregabalin (Lyrica) 100 MG CAPSULE 1 CAP PO BID NERVE PAIN (Reported) Rivaroxaban (Xarelto) 20 MG TABLET 1 TAB PO DAILY PULMONARY EMBOLISM Sitagliptin Phosphate (Januvia) 25 MG TABLET 1 TAB PO DAILY DM (Reported)
--- NOTE | 2016-07-29 00:49 | NUR ---
PT UP FROM ER VIA STRETCHER, TRANSFERED ONTO BED AND PLACED ON ICU MONITOR. PT A/Ox3, COOPERATIVE. CALL LIGHT AND SAFETY REVIEWED, BEDSIDE COMMODE BROUGHT TO BEDSIDE, PT VERBALIZES UNDERSTANDING. PT ON 2L NC PULSE OX 97-99%. PT HAS PIGTAIL CHEST TUBE TO LEFT UPPER ANTERIOE CHEST, NO KREPIDUS OR AIRLEAK NOTE AND DRESSING INTACT. PT DENIES SOB, DOES HAVE SOME PAIN TO SITE, PERCOCET GIVEN WITH GOOD RELIEF. PT NSR ON MONITOR HEARTRATE IN THE 70S. BP STABLE 136/70 MANUALLY. PT SKIN INTACT. WILL CONTINUE TO MONITOR.
--- NOTE | 2016-07-29 05:38 | PN- General Surgery ---
See Addendum Subjective Subjective: No issues overnight per RN. Some pain at CT site. no sob, n,v. +voids Objective Vital Signs and I&Os Vital Signs Date Time Temp Pulse Resp B/P B/P Pulse O2 O2 Flow FiO2 Mean Ox Delivery Rate 07/29 0414 99 Nasal 2.0L Cannula 07/29 0210 99 Nasal 2.0L Cannula 07/29 0032 99 Nasal 2.0L Cannula 07/29 0000 98.1 74 16 136/70 99 Nasal 2.0L Cannula 07/28 2218 96.9 88 20 148/96 99 Nasal 2.0L Cannula 07/28 2130 80 20 147/87 99 Room Air 07/28 2044 97.2 77 18 149/73 99 Nasal 2.0L Cannula 07/28 1935 97.1 88 20 166/78 98 Nasal 2.0L Cannula 07/28 1904 96.7 73 18 163/108 07/28 1838 96.7 73 18 163/108 98 Room Air 07/28 1747 100 Nasal 2.0L Cannula 07/28 1741 97.8 87 20 156/75 98 Room Air 07/28 1737 97.1 84 18 156/75 97 Room Air Intake & Output 07/29 0800 05/ 0000 07/28 1600 / 0800 07/28 0000 07/27 1600 Intake Total 300 Output Total Balance 300 Intake, Oral 300 Patient 230 lb 230 lb Weight Weight Reported by Patient Measurement Method CT out: <10cc in pleurovac, no AL Physical Exam: Gen: NAD Card: s1s2 RRR Pulm: Left CT to lcws- no AL, dressing cdi, minimal serosang drainage in pleurovac, ttp at tube insertion site, coarse throughout Ext: cales soft nt bl Assessment/Plan Assessment/Plan A: POD1 sp L CT placement by IR for iatrogenic ptx following CT-guided lung bx, stable. P: -CXR this am, ?apical ptx resolved, ?waterseal - home meds - hold xarelto- ?when restart - IR to see today - will dw with attending Core Measures/Miscellaneous Venous Thromboembolism VTE Risk Factors: Age > 40 VTE Contraindications: No Contraindications VTE Diagnosis: No VTE Type: NONE VTE Confirmed by (Test): NONE Beta [facility] Is Beta Amish a Home Med? No Antibiotics Is Patient on Antibiotics? No
[2016-07-29 08:00] VITALS: BP 136/80
--- NOTE | 2016-07-29 09:21 | PN- Pulmonary ---
Subjective HPI/Critical Care Issues: Doing well afebrile No pain fatigue afebrile Objective Current Medications: Current Medications Sig/Ziyad Start time Last Medication Dose Route Stop Time Status Admin Acetaminophen 650 MG Q6PRN PRN 07/28 1745 AC PO Albuterol Sulfate 2 PUF BID 07/28 2200 AC 07/29 INH 0841 Amitriptyline HCl 125 MG AT BEDTIME 07/28 220 AC 07/28 PO 2214 Amlodipine Besylate 5 MG DAILY 07/29 1000 AC PO Amlodipine Besylate 0 .STK-MED ONE 07/28 190 DC PO Amlodipine Besylate 5 MG ONCE ONE 07/28 1900 DC 07/28 PO 07/28 190 1904 Enoxaparin Sodium 40 MG DAILY 07/29 1000 AC 07/29 SC 0841 Lisinopril 40 MG DAILY 07/29 1000 AC 07/29 PO 0841 Lorazepam 0 .STK-MED ONE 07/28 2205 DC PO Lorazepam 0.5 MG QPM 07/28 2199 AC 07/28 PO 08/04 2159 2214 Omeprazole 40 MG DAILY AC 07/29 0700 AC 07/29 PO 0753 Omeprazole 40 MG .STK-MED ONE 07/28 2330 DC PO 07/28 2331 Ondansetron HCl 4 MG Q8P PRN 07/28 1745 AC IV Oxycodone/ 0 .STK-MED ONE 07/28 1757 DC Acetaminophen PO Oxycodone/ 1 TAB Q4P PRN 07/28 1745 AC 07/29 Acetaminophen PO 0842 Potassium Chloride 20 MEQ .Q20H 07/28 1745 AC 07/28 Dextrose/Sodium 1,000 ML IV 2001 Chloride Pravastatin Sodium 20 MG 1700 07/29 1700 AC PO Pregabalin 0 .STK-MED ONE 07/28 220 DC PO Pregabalin 100 MG BID 07/28 2200 AC 07/29 PO 0841 Rivaroxaban 20 MG DAILY 07/29 1000 CAN PO Sitagliptin Phosphate 25 MG DAILY 07/29 1000 AC 07/29 PO 0841 Vital Signs & I&O Last 24 Hrs of Vitals and I&O: Vital Signs Date Time Temp Pulse Resp B/P B/P Pulse O2 O2 Flow FiO2 Mean Ox Delivery Rate 07/29 0841 69 136/80 07/29 0800 97.3 83 24 136/80 97 Nasal 2.0L Cannula 07/29 0800 98 Nasal 2.0L Cannula 07/29 0604 100 Nasal 2.0L Cannula 07/29 0414 99 Nasal 2.0L Cannula 07/29 0210 99 Nasal 2.0L Cannula 07/29 0032 99 Nasal 2.0L Cannula 07/29 0000 98.1 74 16 136/70 99 Nasal 2.0L Cannula 07/28 2218 96.9 88 20 148/96 99 Nasal 2.0L Cannula 07/28 2130 80 20 147/87 99 Room Air 07/28 2044 97.2 77 18 149/73 99 Nasal 2.0L Cannula 07/28 1935 97.1 88 20 166/78 98 Nasal 2.0L Cannula 07/28 1904 96.7 73 18 163/108 05 1838 96.7 73 18 163/108 98 Room Air 07/28 1747 100 Nasal 2.0L Cannula 07/28 1741 97.8 87 20 156/75 98 Room Air 05 1737 97.1 84 18 156/75 97 Room Air Intake & Output 07/29 1600 02 0800 05 0000 Intake Total 442 300 Output Total 150 Balance 292 300 Intake, IV 322 Intake, Oral 120 300 Number 0 Bowel Movements Output, Urine 150 Patient 230 lb 230 lb Weight Weight Reported by Patient Measurement Method Impression/Plan Impression/Plan Impression/Plan: Exam General Appearance: well developed/nourished, no apparent distress, alert, awake , comfortable, obese Head: atraumatic, normal appearance Ears, Nose, Throat: normal pharynx, normal ENT inspection, moist mucus membranes Neck: normal inspection, supple, full range of motion Respiratory: normal breath sounds, chest non-tender, no respiratory distress left sided chest tube noted with no sig airleak Cardiovascular: regular rate/rhythm, normal peripheral pulses Gastrointestinal: normal bowel sounds, soft, non-tender Extremities: normal inspection, normal capillary refill, normal range of motion, no edema Skin: intact, normal color, warm/dry This is a 61-year-old lady with diabetes, hypertension, depression, GERD, obstructive lung disease, ex-smoker, obstructive sleep apnea noncompliant now comes in with a large ptx after a lung biopsy for pet positive left upperlobe lesion ISSUES PTX post lung biopsy now better after chest tube REcent sig unprovoked PE on xeralto which is held for biopsy Mild copd with airtrapping with normal pft with reduced dlco recently 1.8 cm lung nodule with a positive ap window lymphnode by pet needs further eval , now s/p biopsy and pt may need biopsy of ap window lymphnode DM SANJUANITA noncompiant HTN Depression and anxiety and other psych issues followed by psych on tricyclic GERD 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
--- NOTE | 2016-07-29 09:57 | RADIOLOGY REPORT ---
EXAMINATION: XR PORTABLE CHEST CLINICAL INFORMATION: Presumptive diagnosis of pneumothorax. O2 requirement. COMPARISON: Chest x-ray dated 07/29/2016. TECHNIQUE: Portable AP semierect view of the chest was obtained. FINDINGS: No interval change in positioning of the left sided pleural catheter. Slight kinking of the catheter in the lower paraspinal region is again seen, unchanged. There remains a small left apical pneumothorax, unchanged. There is also no significant change in the parenchymal opacity in the left upper lung. Right lung remains fully expanded. There is minimal linear subsegmental atelectasis medially in the right lung base. The cardiomediastinal silhouette is within normal limits in size and midline in position. Lower cervical spine fusion plate is again partially imaged. Bony structures otherwise grossly unremarkable. IMPRESSION: 1. No significant interval change is seen in the positioning/configuration of left-sided pleural catheter and in the small left apical pneumothorax. 2. No significant change in parenchymal opacity in the partially collapsed left upper lobe.
[2016-07-29] MEDS ORDERED: PERCOCET 5-3251 EACH PO (10:36)
--- NOTE | 2016-07-29 10:41 | NUR ---
@0800-PT ALERT AND ORIENTED, COOP. FORGETFUL AT TIMES. C/O PAIN TO L CHEST TUBE SITE 10/06-MEDICATED WITH PRN PERCOCET DOSE. CONT ON NC 2L-02SAT 97%. DENIES SOB AT THIS TIME. CXR FROM THIS AM PENDING RESULTS. L ANTERIOR PIGTAIL CATH CT NOTED IN PLACE WITH DSG CDI, ATTACHED TO PLUERIX CANISTER TO LWS. NO AIR LEAK NOTED AND SCANT SS DRAINAGE NOTED IN COLLECTION CHAMBER. NSR HR 70S. BP STABLE. HH DIET PROVIDED OTD. SKIN INTACT EXCPET FOR CT SITE AND BANDAID TO L UPPER BACK FROM BIOPSY DONE ON ADMISSION. IVF INFUSING D51/2 NS WITH 20MEW KCL AT 50ML/HR. ACCUCHECK 121, NO COVERAGE NOTED. CONT TO MONITOR CLOSELY, CALL NICOLAS WITHIN REACH.
--- NOTE | 2016-07-29 10:44 | NUR ---
@1030-IVF DC'D DUE TO GOOD PO INTAKE. L CT PIGTAIL CATHETER CLAMPED PER SURG PA ORD AND PT TO HAVE REPEAT CXR AT 1230. CONT TO MONITOR. CALL NICOLAS WITHIN REACH.
--- NOTE | 2016-07-29 10:52 | Patient Discharge Instructions ---
Discharge Instructions General Discharge Information You were seen/treated for: Pneumothorax You had these procedures: Lung mass biopsy performed by interventional radiology with complications of pneumothorax requiring chest tube Watch for these problems: Shortness of breath, cough, coughing up blood, fever, chest pain or flulike illness. Do not soak the wound: Yes Daily wet to dry dressings: No No bath, but you may shower: Yes Other wound care: Change dressing after 3 days, may use Band-Aids. Watch for any signs of redness or swelling or discharge from the wound. Follow- up with your agricultural sales representative in one week Special Instructions: Resume your current medication, take Percocet as needed for pain Diet Continue normal diet: Yes Activity Full Activity/No Limits: No Activity Self Limited: Yes Other activity limits: Avoid strenuous physical activity for the next 1 week Acute Coronary Syndrome Inclusion Criteria At DC or during hospital stay patient has or had the following: ACS DIAGNOSIS No Discharge Core Measures Meds if any: Prescribed or Continued at Discharge Meds if any: NOT Prescribed or Continued at Discharge Congestive Heart Failure Inclusion Criteria At DC or during hospital stay patient has or had the following: CHF DIAGNOSIS No Discharge Core Measures Meds if any: Prescribed or Continued at Discharge Meds if any: NOT Prescribed or Continued at Discharge Cerebrovascular accident Inclusion Criteria At DC or during hospital stay patient has or had the following: CVA/TIA Diagnosis No Discharge Core Measures Meds if any: Prescribed or Continued at Discharge Meds if any: NOT Prescribed or Continued at Discharge Venous thromboembolism Inclusion Criteria VTE Diagnosis No VTE Type NONE VTE Confirmed by (Test) NONE Discharge Core Measures - Per Current guidelines, there needs to be overlap - treatment for the first 5 days of Warfarin therapy. - If discharged on Warfarin prior to 5 days of - overlap therapy, the patient will need to be - assessed for post discharge needs including - *Post discharge parental anticoagulation - *Warfarin and/or parental anticoagulation education - *Follow up date to check INR post discharge At least 5 days overlap therapy as Inpatient No Meds if any: Prescribed or Continued at Discharge Note: Overlap Therapy is Warfarin and Anticoagulant Meds if any: NOT Prescribed or Continued at Discharge
--- NOTE | 2016-07-29 10:56 | Surg Short-stay <48hrs Dis Sum ---
Visit Information Visit Dates Admission Date: 07/28/16 Discharge Date: 07/29/16 Surgical Short Stay DC Summary Admission Diagnosis: Pneumothorax requiring chest tube placement after elective lung mass biopsy left lung Final Diagnosis: Same Procedure(s): Placement of pigtail catheter to anterior chest, left side for pneumothorax Summary/Significant Findings: s Condition at Discharge: Good Discharge Disposition: home or self care Discharge instructions provided to patient/family: Yes Post discharge follow-up plan: Follow-up with your residential solar consultant in one week hypoxia and no tachypnea, pain is under control, she is stable for discharge home. Condition at Discharge: Good Discharge Disposition: home or self care Discharge instructions provided to patient/family: Yes Post discharge follow-up plan: Follow-up with your residential solar consultant in one week
--- NOTE | 2016-07-29 12:56 | RADIOLOGY REPORT ---
EXAMINATION:\H\ \N\XR CHEST CLINICAL INFORMATION: 61-year-old patient status post needle biopsy of a left upper lobe mass subsequent developing pneumothorax. The left chest tube has been clamped for 2 hours. COMPARISON: Portable chest x-ray performed this morning at 06:38. TECHNIQUE: Frontal view of the chest was obtained. FINDINGS: A left chest tube is seen in place with the pigtail adjacent to the aortic arch. Again noted is a left apical pneumothorax which has increased in size from approximately 10% to approximately 15-20%. There is some persistent consolidation in the left upper lobe at the biopsy site. The remainder of the lungs are clear. There is no evidence of mediastinal shift. IMPRESSION: Enlarging left pneumothorax with the chest tube clamped. Orders were made to resume suction on the chest tube.
--- NOTE | 2016-07-29 13:52 | NUR ---
@1230-THIS RN TRAVELED WITH PT TO RADIOLOGY FOR CXR AFTER CT CLAMPED X 2 HRS. PT STEFANO WELL. PER RADIOLOGIST, PT NOT READY FOR CT REMOVAL. @1300-BACK TO [facility]. PLACED IN RECLINER CHAIR AND ASSISTED TO COMF POSITION. CHEST PLACED BACK TO LWS AND UNCLAMPED AT THIS TIME. PT CHANGED TO FULL ADMISSION. CONT TO MONITOR, CALL MARIA ISABEL MCHUGH.
[2016-07-29 16:00] VITALS: BP 128/72
[2016-07-30] VITALS: BP 118/70
--- NOTE | 2016-07-30 01:23 | NUR ---
0100 PATIENT SLEEPING SOUNDLY AFTER PAIN MED, BP 97/56, EASILY AROUSABLE AND ORIENTED X3, STATES PAIN 5/10 AFTER MED 0130 BP 96/56
--- NOTE | 2016-07-30 02:32 | PN- Thoracic Surgery ---
See Addendum Subjective Subjective: pt with pain at CT side, L chest. no sob, no cough or fever. percocet helps. Objective Vital Signs and I&Os Vital Signs Date Time Temp Pulse Resp B/P B/P Pulse O2 O2 Flow FiO2 Mean Ox Delivery Rate 07/30 0000 100 Nasal 4.0L Cannula 07/30 0000 98.0 80 16 118/70 100 Nasal 4.0L Cannula 07/29 2024 96 Nasal 2.0L Cannula 07/29 1950 99 Nasal 2.0L Cannula 07/29 1600 98 Nasal 2.0L Cannula 07/29 1600 97.9 77 24 128/72 100 Nasal 2.0L Cannula 07/29 1200 97 Nasal 2.0L Cannula 07/29 1020 Nasal 2.0L Cannula 07/29 1019 96 Nasal 2.0L Cannula 07/29 0933 70 131/60 07/29 0841 69 136/80 07/29 0800 97.3 83 24 136/80 97 Nasal 2.0L Cannula 07/29 0800 98 Nasal 2.0L Cannula 07/29 0604 100 Nasal 2.0L Cannula 07/29 0414 99 Nasal 2.0L Cannula Intake & Output 07/30 0800 05/03 0000 / 1600 05/02 0800 05/ 0000 05/01 1600 Intake Total 640 710 442 300 Output Total 250 300 150 Balance 390 410 292 300 Intake, IV 150 322 Intake, Oral 640 560 120 300 Number 0 0 0 Bowel Movements Output, Chest 0 0 Tube Drainage Output, Urine 250 300 150 Patient 230 lb 230 lb Weight Weight Reported by Patient Measurement Method Physical Exam: wdwn sleeping comfortably. heart- RRR Lungs- crackles and decreased bs L lung chest tube to suction, no leak, no drainage in tube. tube insertion side is c/d/i Assessment/Plan Assessment/Plan day 2 sp chest tube placement after ptx s/p thorocentesis. plan per IR: cont CT to wall suction, check cxr in am. if no ptx, clamp and repeat cxr in 2 hrs, if still no ptx, IR will remove chest tube and pt may be discharged home. -ween O2 -pain meds as needed. Core Measures/Miscellaneous Venous Thromboembolism VTE Risk Factors: Age > 40 VTE Contraindications: No Contraindications VTE Diagnosis: No VTE Type: NONE VTE Confirmed by (Test): NONE Beta [facility] Is Beta Amish a Home Med? No Antibiotics Is Patient on Antibiotics? No
--- NOTE | 2016-07-30 03:09 | NUR ---
02 SAT 98% ON 4L/MIN VIA NC- TITRATED DOWN TO 3L/MIN ORDERED
--- NOTE | 2016-07-30 07:03 | NUR ---
02 SAT AT 99% ON 2L O2 VIA NC- O2 DECREASED TO 1L/MIN ORDERED, AM PORTABLE CXR DONE, PATIENT MEDICATED WITH ONE PERCOCET FOR 7/10 POST-OP PAIN REPORTED AFTER GETTING OOB TO USE BEDSIDE COMMODE, RESTING QUIETLY, AWAITING AM MD ROUNDS
[2016-07-30 08:00] VITALS: BP 92/70
--- NOTE | 2016-07-30 08:23 | RADIOLOGY REPORT ---
EXAMINATION: XR PORTABLE CHEST CLINICAL INFORMATION: 61-year-old female status post pneumothorax after left lung biopsy. Chest tube was placed on 07/28/2016. Evaluate for residual pneumothorax. COMPARISON: 07/29/2016 and 07/28/2016 TECHNIQUE: Portable frontal view of the chest was obtained. FINDINGS: Left-sided pigtail chest tube projects over the left mid lung. There is a small residual left apical pneumothorax. No significant change in the parenchymal opacity in the left upper lung. The right lung remains fully expanded. Bibasilar atelectasis is noted. No significant pleural effusions. Cardiomediastinal silhouette is within normal limits. No midline shift. No acute osseous abnormality. Lower cervical spinal fusion hardware again noted. IMPRESSION: Left-sided chest tube is in place. Small residual left apical pneumothorax.
--- NOTE | 2016-07-30 09:59 | PN- Pulmonary ---
Subjective HPI/Critical Care Issues: Ongoing pain in the chest tube incertion site Did develop ptx after the tube was clamped yesterday Objective Current Medications: Current Medications Sig/Ziyad Start time Last Medication Dose Route Stop Time Status Admin Acetaminophen 650 MG Q6PRN PRN 07/28 1745 AC PO Albuterol Sulfate 3 ML BID 07/29 2200 AC 07/30 INH 0904 Albuterol Sulfate 2 PUF BID 07/28 220 AC 07/29 INH 0841 Amitriptyline HCl 125 MG AT BEDTIME 07/28 220 AC 07/29 PO 2146 Amlodipine Besylate 5 MG DAILY 07/29 1000 AC 07/29 PO 0933 Enoxaparin Sodium 40 MG DAILY 07/29 1000 AC 07/29 SC 0841 Lisinopril 40 MG DAILY 07/29 1000 AC 07/29 PO 0841 Lorazepam 0.5 MG QPM 07/28 220 AC 07/29 PO 08/04 2159 2146 Omeprazole 40 MG DAILY AC 07/29 0700 AC 07/30 PO 0623 Ondansetron HCl 4 MG Q8P PRN 07/28 1745 AC IV Oxycodone/ 1 TAB ONCE ONE 07/30 1999 DC 07/29 Acetaminophen PO 07/29 Oxycodone/ 2 TAB Q4P PRN 07/29 2000 AC 07/30 Acetaminophen PO 0025 Oxycodone/ 1 TAB Q4P PRN 07/28 1745 AC 07/30 Acetaminophen PO 0656 Potassium Chloride 20 MEQ .Q20H 07/28 1745 DC 07/28 Dextrose/Sodium 1,000 ML IV 2001 Chloride Pravastatin Sodium 20 MG 1700 07/29 1700 AC 07/29 PO 1557 Pregabalin 100 MG BID 07/28 220 AC 07/29 PO 2146 Sitagliptin Phosphate 25 MG DAILY 07/29 1000 AC 07/29 PO 0841 Vital Signs & I&O Last 24 Hrs of Vitals and I&O: Vital Signs Date Time Temp Pulse Resp B/P B/P Pulse O2 O2 Flow FiO2 Mean Ox Delivery Rate 07/30 0908 97 Nasal 1.0L Cannula 07/30 0800 96.6 74 12 92/70 98 Nasal 1.0L Cannula 07/30 0400 98 Nasal 3.0L Cannula 07/30 0000 100 Nasal 4.0L Cannula 07/30 0000 98.0 80 16 118/70 100 Nasal 4.0L Cannula 07/29 2024 96 Nasal 2.0L Cannula 07/29 1950 99 Nasal 2.0L Cannula 07/29 1600 98 Nasal 2.0L Cannula 07/29 1600 97.9 77 24 128/72 100 Nasal 2.0L Cannula 07/29 1200 97 Nasal 2.0L Cannula 07/29 1020 Nasal 2.0L Cannula 07/29 1019 96 Nasal 2.0L Cannula Intake & Output 07/30 1600 07/30 0800 05 0000 Intake Total 475 640 Output Total 400 250 Balance 75 390 Intake, Oral 475 640 Number 0 0 Bowel Movements Output, Chest 0 0 Tube Drainage Output, Urine 400 250 Impression/Plan Impression/Plan Impression/Plan: Exam General Appearance: well developed/nourished, no apparent distress, alert, awake , comfortable, obese Head: atraumatic, normal appearance Ears, Nose, Throat: normal pharynx, normal ENT inspection, moist mucus membranes Neck: normal inspection, supple, full range of motion Respiratory: normal breath sounds, chest non-tender, no respiratory distress left sided chest tube noted with no sig airleak Cardiovascular: regular rate/rhythm, normal peripheral pulses Gastrointestinal: normal bowel sounds, soft, non-tender Extremities: normal inspection, normal capillary refill, normal range of motion, no edema Skin: intact, normal color, warm/dry This is a 61-year-old lady with diabetes, hypertension, depression, GERD, obstructive lung disease, ex-smoker, obstructive sleep apnea noncompliant now comes in with a large ptx after a lung biopsy for pet positive left upperlobe lesion ISSUES PTX post lung biopsy now better after chest tube REcent sig unprovoked PE on xeralto which is held for biopsy Mild copd with airtrapping with normal pft with reduced dlco recently 1.8 cm lung nodule with a positive ap window lymphnode by pet needs further eval , now s/p biopsy and pt may need biopsy of ap window lymphnode DM SANJUANITA noncompiant HTN Depression and anxiety and other psych issues followed by psych on tricyclic GERD 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
[2016-07-30 16:00] VITALS: BP 120/64
--- NOTE | 2016-07-30 19:32 | NUR ---
0800: RECEIVED PATIENT DROWSY/DIFFICULT TO AROUSE, ORIENTED X3 WHEN AROUSED, DENIES PAIN. NSR ON THE ONLINE RETAILER 70S-80S, SBP=90S-100S. B/P MEDS HELD AT 1000 PER B/P BEING TOO LOW, OKAY'D PER MIGNON TRINIDAD. ON 1 LITER NASAL CANNULA, SATTING 97-100%, NO DISTRESS, NO COUGH. PLEUREX CHEST TUBE TO MIDSTERNUM, DRESSING CDI, TO LOW WALL SUCTION W/ LITTLE/NO DRAINAGE. CXR STILL SHOWS SMALL PNEUMOTHORAX SO CHEST TUBE TO REMAINED TO LOW WALL SUCTION AND TO ATTEMPT TO CLAMP/REASSESS TOMORROW 07/31/16. ABDOMEN SOFT/NONTENDER, +BS. GETS OOB TO BSC TO URINATE. AMBULATES WELL W/ SUPERVISION. PATIENT TO GET PERCOCET FOR PAIN. REQUESTED MIGNON GUEVARA TO ORDER TRAMADOL SINCE PATIENT WAS SO DROWSY W/ LOW B/P AFTER GETTING PERCOCET OVERNIGHT. THROUGHOUT THE DAY, PATIENT STATING HER PAIN WAS AN 9/10 AND WOULD THEN DRIFT OFF TO SLEEP OR BE ON HER PHONE, LAUGHING/JOKING/SMILING. THIS RN RE-EXPLAINED PAIN SCALE TO PATIENT AND ENCOURAGED HER TO USE IT APPROPRIATELY IN PAIN MANAGEMENT. SKIN IS INTACT/NO EDEMA. PATIENT HAS GOOD APPETITE AND ATE WELL. ACCU CHECK W/ WELL CONTROLLED BLOOD SUGARS, JANUVIA TAKEN DAILY W. GOOD EFFECT. PATIENT REORIENTED TO ROOM, USING CALL NICOLAS APPROPRIATELY. CONTINUING TO MONITOR SAFETY AND REASSESS FOR D/C TOMORROW.
[2016-07-31] VITALS: BP 128/70
--- NOTE | 2016-07-31 | NUR ---
PATIENT ALERT. MONITOR SINUS RHYTHM AT RATE OF 87. NASAL O2 OFF ON FIRST ASSESSMENT.O2 SAT=95%.PT REQUESTED NASAL O2 TO BE REPLACED.LUNG SOUNDS CLEAR BILATERAL.PIGTAIL CHEST TUBE TO LCW.DRESSING INTACT.CHEST TUBE TO THORASEAL TO -20 CM SUCTION.SEROSANQUINOUS DRAINAGE.C/O PAIN 8:10 AT CHEST TUBE SITE.MEDICATED WITH TRAMADOL.
--- NOTE | 2016-07-31 06:40 | PN- Thoracic Surgery ---
Subjective Subjective: contunues to c/o left anterior cp at cath site deneis sob, no n+v no major events overnight Objective Vital Signs and I&Os Vital Signs Date Time Temp Pulse Resp B/P B/P Pulse O2 O2 Flow FiO2 Mean Ox Delivery Rate 07/31 0000 95 Nasal 1.0L Cannula 07/31 0000 97.2 87 20 128/70 95 Nasal 1.0L Cannula 07/30 2112 94 Room Air Room Air 07/30 2000 96 Nasal 1.0L Cannula 07/30 1600 98 Nasal 1.0L Cannula 07/30 1600 98.3 80 18 120/64 100 Nasal 1.0L Cannula 07/30 1236 88 91/61 07/30 1236 88 91/61 07/30 1200 98 Nasal 1.0L Cannula 07/30 0908 97 Nasal 1.0L Cannula 07/30 0800 98 Nasal 1.0L Cannula 07/30 0800 96.6 74 12 92/70 98 Nasal 1.0L Cannula Intake & Output 07/31 0800 / 0000 07/30 1600 07/30 0800 07/30 0000 07/29 1600 Intake Total 680 500 475 640 710 Output Total 600 250 400 250 300 Balance 80 250 75 390 410 Intake, IV 150 Intake, Oral 680 500 475 640 560 Number 0 0 0 Bowel Movements Output, Chest 0 0 0 0 Tube Drainage Output, Urine 600 250 400 250 300 Patient 240 lb Weight Weight Bed scale Measurement Method Physical Exam: cv: rrr lungs: clear abd: soft, nt ext: warm, cms intact chest tube: no leak with cough cath in place, clean dry Assessment/Plan Assessment/Plan inchanged from previous plan repeat clamping trial today per attending Core Measures/Miscellaneous Venous Thromboembolism VTE Risk Factors: Age > 40 VTE Contraindications: No Contraindications VTE Diagnosis: No VTE Type: NONE VTE Confirmed by (Test): NONE Beta Amish Is Beta Amish a Home Med? No Antibiotics Is Patient on Antibiotics? No
[2016-07-31 07:00] VITALS: BP 162/80
--- NOTE | 2016-07-31 08:15 | RADIOLOGY REPORT ---
EXAMINATION: XR PORTABLE CHEST CLINICAL INFORMATION: Follow-up study. Presumptive diagnosis of pneumothorax. COMPARISON: Chest x-ray dated 07/30/2016. TECHNIQUE: Portable semierect view of the chest was obtained. FINDINGS: The left-sided pleural catheter now projects over the left mid to upper chest. Interval slight decrease in size of tiny left apical pneumothorax is seen. Focal parenchymal opacity in left upper lung again noted, similar to prior exam. Mild left basilar subsegmental atelectasis seen. No right-sided pneumothorax is noted. There is slight elevation of the right hemidiaphragm with increased opacity in the right lung base, consistent with subsegmental atelectasis. Cardiac mediastinal silhouette within normal limits in size. Bony structures grossly unremarkable except for the lower cervical spine fusion plate. IMPRESSION: 1. Interval slight decrease in size of tiny left apical pneumothorax. 2. No other interval change.
--- NOTE | 2016-07-31 10:00 | NUR ---
0800: RECEIVED PATIENT ALERT AND ORIENTED X3. APPROPRIATE, FOLLOWS COMMANDS, DENIES COMPLAINTS OTHER THAN SOME MIDSTERNAL SORENESS FROM THE PLEUREX/PIGTAIL CATHETER UPON MOVEMENT AND DEEP BREATHING. PATIENT GIVEN TRAMADOL AT 0615 AM PER NIGHT RN. ON ROOM AIR SATTING 95% W/ NO RESP DISTRESS. LUNGS CLEAR/DIMINISHED TO THE BASES. NSR ON THE VICE PRESIDENT LENDING 70S-80S, TLD=[id number]. ABDOMEN SOFT/NONTENDER, +BS. ORDERED COLACE AND SENNA THIS AM. LAST BM 07/28/16. VOIDING URINE WITHOUT DIFFICULTY IN THE BSC. OOB AX1 AMBULATES WELL TO THE CHAIR. CXR DONE THIS AM SHOWING IMPROVEMENT TO L PNEUMOTHORAX. CHEST TUBE CLAMPED AT 10 AM PER SX MIGNON GOLDBERG. TO RECHECK CXR AT 1200. SKIN INTACT/NO EDEMA
--- NOTE | 2016-07-31 10:23 | PN- Pulmonary ---
Subjective HPI/Critical Care Issues: contunues to c/o left anterior cp at cath site deneis sob, no n+v no major events overnight Objective Current Medications: Current Medications Sig/Ziyad Start time Last Medication Dose Route Stop Time Status Admin Acetaminophen 650 MG Q6PRN PRN 07/28 1745 AC PO Albuterol Sulfate 3 ML BID 07/29 2200 AC 07/31 INH 0957 Albuterol Sulfate 2 PUF BID 07/28 2200 DC 07/29 INH 0841 Amitriptyline HCl 125 MG AT BEDTIME 07/28 2200 AC 07/30 PO 2126 Amlodipine Besylate 5 MG DAILY 07/29 1000 AC 07/31 PO 0947 Docusate Sodium 100 MG BID 07/31 1000 AC 07/31 PO 0953 Enoxaparin Sodium 40 MG DAILY 07/29 1000 AC 07/31 SC 0946 Lisinopril 40 MG DAILY 07/29 1000 AC 07/31 PO 0947 Lorazepam 0.5 MG QPM 07/28 2200 AC 07/30 PO 08/04 2159 2126 Omeprazole 40 MG DAILY AC 07/29 0700 AC 07/31 PO 0624 Ondansetron HCl 4 MG Q8P PRN 07/28 1745 AC IV Oxycodone/ 2 TAB Q4P PRN 07/29 2000 DC 07/30 Acetaminophen PO 0025 Oxycodone/ 1 TAB Q4P PRN 07/28 1745 AC 05/03 Acetaminophen PO 1714 Pravastatin Sodium 20 MG 1700 / 1700 AC 07/30 PO 1714 Pregabalin 100 MG BID 07/28 2200 AC 07/31 PO 0953 Senna/Docusate Sodium 2 TAB DAILY 07/31 1000 AC PO Sitagliptin Phosphate 25 MG DAILY 07/29 1000 AC 07/31 PO 0947 Tramadol HCl 50 MG Q6 PRN 07/30 1230 AC 07/31 PO 0617 Vital Signs & I&O Last 24 Hrs of Vitals and I&O: Vital Signs Date Time Temp Pulse Resp B/P B/P Pulse O2 O2 Flow FiO2 Mean Ox Delivery Rate 07/31 0947 86 143/84 07/31 0947 86 143/84 / 0800 95 Room Air Room Air 07/31 0700 97.9 80 12 162/80 94 Room Air Room Air 07/31 0400 96 Nasal 1.0L Cannula 07/31 0000 95 Nasal 1.0L Cannula 07/31 0000 97.2 87 20 128/70 95 Nasal 1.0L Cannula 07/30 2112 94 Room Air Room Air 07/31 1999 96 Nasal 1.0L Cannula 07/30 1600 98 Nasal 1.0L Cannula 07/30 1600 98.3 80 18 120/64 100 Nasal 1.0L Cannula 07/30 1236 88 91/61 07/30 1236 88 91/61 07/30 1200 98 Nasal 1.0L Cannula Intake & Output 07/31 1600 07/31 0800 07/31 0000 Intake Total 360 680 Output Total 362 600 Balance -2 80 Intake, Oral 360 680 Output, Chest 12 0 Tube Drainage Output, Urine 350 600 Impression/Plan Impression/Plan Impression/Plan: Exam General Appearance: well developed/nourished, no apparent distress, alert, awake , comfortable, obese Head: atraumatic, normal appearance Ears, Nose, Throat: normal pharynx, normal ENT inspection, moist mucus membranes Neck: normal inspection, supple, full range of motion Respiratory: normal breath sounds, chest non-tender, no respiratory distress left sided chest tube noted with no sig airleak Cardiovascular: regular rate/rhythm, normal peripheral pulses Gastrointestinal: normal bowel sounds, soft, non-tender Extremities: normal inspection, normal capillary refill, normal range of motion, no edema Skin: intact, normal color, warm/dry This is a 61-year-old lady with diabetes, hypertension, depression, GERD, obstructive lung disease, ex-smoker, obstructive sleep apnea noncompliant now comes in with a large ptx after a lung biopsy for pet positive left upperlobe lesion ISSUES PTX post lung biopsy now better after chest tube REcent sig unprovoked PE on xeralto which is held for biopsy Mild copd with airtrapping with normal pft with reduced dlco recently 1.8 cm lung nodule with a positive ap window lymphnode by pet needs further eval , now s/p biopsy and pt may need biopsy of ap window lymphnode DM SANJUANITA noncompiant HTN Depression and anxiety and other psych issues followed by psych on tricyclic GERD 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
--- NOTE | 2016-07-31 14:43 | RADIOLOGY REPORT ---
EXAMINATION:\H\ \N\XR CHEST CLINICAL INFORMATION: 61-year-old woman who developed a persistent left pneumothorax following lung biopsy on 07/28/2016. The patient's left chest tube has been clamped for 2 hours. COMPARISON: Portable chest x-ray obtained at 06:04 this morning. TECHNIQUE: Frontal portable view of the chest was obtained. FINDINGS: The patient's left chest tube is seen in place with the pigtail at the level of the arch with no significant change in position. The left lung is expanded. No significant pleural effusion is identified. IMPRESSION: The chest tube clamp trial shows no evidence of a continued air leak. The left chest tube will be removed.
--- NOTE | 2016-07-31 14:45 | RADIOLOGY REPORT ---
EXAMINATION: XR PORTABLE CHEST CLINICAL INFORMATION: Follow-up chest x-ray after left chest tube removal. COMPARISON: None TECHNIQUE: Portable frontal view of the chest was obtained. FINDINGS: The left chest tube has been removed. No pneumothorax or pleural effusion is identified. There is a persistent ill-defined density in the left upper lobe. The remainder of the lungs are clear. IMPRESSION: No evidence of a pneumothorax following left chest tube removal.
--- NOTE | 2016-07-31 15:40 | NUR ---
1245: PATIENT BROUGHT BACK UP FROM CXR W/ MULTIPLE VIEWS. SPOKE W/ RADIOLOGY, PIGTAIL PLEUREX TO COME OUT WHILE DOWN IN RADIOLOGY RADIOLOGIST AWARE, DR. LUIS CAME TO BEDSIDE. 2MG IV MORPHINE ORDERED PER SURGICAL PA, GIVEN AT THIS TIME AND CHEST TUBE REMOVED. REPEAT CXR AT 1400 IMPROVED/WITHOUT INCIDENT. AWAITING FOR POSSIBLE D/C
[2016-07-31 16:00] VITALS: BP 140/82
--- NOTE | 2016-07-31 16:10 | Surgical Discharge Summary ---
Visit Information Visit Dates Admission Date: 07/29/16 Discharge Date: 07/31/16 History of Present Illness Chief Complaint: Lung mass that was biopsied by IR on 07/28, complicated by pneumothorax that required chest tube and admission. Medical History Blood Transfusion Hx: No Neurological: NONE EENT: NONE Cardiovascular: hypertension, hyperlipidemia Respiratory: asthma, PULMONARY EMBOLISM Gastrointestinal: GERD, HEPATITIS C TREATED Hepatic: NONE Renal: NONE Musculoskeletal: osteoarthritis Psychiatric: anxiety, depression Endocrine: diabetes Blood Disorders: NONE Cancer(s): NONE BIT SANDER/Reproductive: NONE History of MRSA: No History of VRE: No History of CDIFF: No Isolation History: Standard Surgical History Pertinent Surgical History: LUMBAR AND CERVICAL SURGERY Family History Relations & Conditions If Any: Relation not specified for: *No pertinent family history Psychosocial History Where Do You Live? Home Who Do You Live With? Patient/Self Services at Home: Home Health Aide What is Your Primary Language? [place] Islander Review of Systems: see [facility] Hospital Course Course Attending Physician: EUFEMIA RADFORD,INESSA Sanchez JR Primary Care Physician: SHARIF PASTOR Hospital Course: Patient underwent an IR guided biopsy of her left lung which was, complicated by a pneumothorax during the procedure and a pigtail chest tube catheter was placed by interventional radiology at the time to alleviate the pneumothorax. She was placed in observation in 07/28 and She was admitted to the cardiothoracic service overnight in the critical-care unit. Repeat chest x-ray shows a 10% apical pneumothorax on the left side, this is being managed by interventional radiology , chest tube was clamped and repeat chest x-ray was performed and it did not improve. She was then converted to a full admission on 07/29/16. PTX was again noted on day 2 after another clamping trial and pigtail catheter was left in. on day 3 repeat CXR shows no job captain, tube was clamped and removed and subsequent CXR shows no ptx. Chest tube was removed by interventional radiology. Patient remains stable,mild anterior chest pain at site of insertion, controlled with pain meds. NO shortness of breath no hypoxia and no tachypnea, pain is under control, she is stable for discharge home. Complications: pneumothorax Allergies: Coded Allergies: adhesive (Mild, RASH 07/28/16) Disposition Summary Disposition Principal Diagnosis: Pneumothorax, L lung Additional Diagnosis: none Discharge Disposition: home health services Discharge Instructions General Discharge Information Code Status: Full Code Patient's Diet: diabetic Patient's Activity: no lifting over 10lbs for 1 week Follow-Up Instructions/Appts: dry dressing daily. may show, change dressings when wet. follow up with [facility] ambassador who ordered the chest mass biopsy. Medications at Discharge Discharge Medications: Continue taking these medications: Amlodipine Besylate (Norvasc) 5 MG TABLET 1 Tablet ORAL DAILY Comments: NOT GIVEN IN HOSPITAL Lisinopril (Lisinopril) 40 MG TABLET 1 Tablet ORAL DAILY Comments: NOT GIVEN IN HOSPITAL Esomeprazole (Nexium) 40 MG CAPSULE.DR 1 Capsule ORAL DAILY Comments: NOT GIVEN IN HOSPITAL Albuterol Sulfate (Proair Hfa) 8.5 GM HFA.AER.AD 2 Puff Inhale through mouth as needed for RESPIRATORY Comments: NOT GIVEN IN HOSPITAL Pravastatin Sodium (Pravastatin Sodium) 20 MG TABLET 1 Tablet ORAL DAILY Qty = 30 Comments: NOT GIVEN IN HOSPITAL Cholecalciferol (Vitamin D3) (Vitamin D) 2,000 UNIT TABLET 1 Tablet ORAL DAILY Qty = 30 Comments: NOT GIVEN IN HOSPITAL Sitagliptin Phosphate (Januvia) 25 MG TABLET 1 Tablet ORAL DAILY Qty = 30 Comments: NOT GIVEN IN HOSPITAL Lorazepam (Lorazepam) 0.5 MG TABLET 1 Tablet ORAL Every night Qty = 30 Comments: NOT GIVEN IN HOSPITAL Rivaroxaban (Xarelto) 20 MG TABLET 1 Tablet ORAL DAILY Qty = 30 Instructions: PLEASE TAKE 1 TABLET (20MG) DAILY (BEGINING May) Comments: NOT GIVEN IN HOSPITAL Pregabalin (Lyrica) 100 MG CAPSULE 1 Capsule ORAL TWICE DAILY Qty = 60 Amitriptyline HCl (Amitriptyline HCl) 100 MG TABLET 1 Tablet ORAL Every night Qty = 30 Amitriptyline HCl (Amitriptyline HCl) 25 MG TABLET 1 Tablet ORAL Every night Qty = 30 Start taking the following new medications: Oxycodone HCl/Acetaminophen (Percocet 5-325 MG Tablet) 5 MG-325 MG TABLET 1-2 Tablet ORAL EVERY 4 HOURS NEEDED as needed for PAIN Qty = 20 No Refills
[2016-07-31] MEDS ORDERED: PERCOCET 5-3251 EACH PO (16:32)
--- NOTE | 2016-07-31 18:14 | NUR ---
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
== END 2016-07-31 20:10 | disposition home health service (06) | DRG 143 ==
LOC: ERH 17:20 → ERHI 17:44 → ENRESERV 18:51 → CRI 23:11
PROVIDERS: ADMIT Thoracic Surgery (Cardiothoracic Vascular Surgery)
PROC: 0W9B30Z Drainage of Left Pleural Cavity with Drainage Device, Percutaneous Approach (ICD-10-PCS; principal; 2016-07-28)
PROC: 0BBG3ZX Excision of Left Upper Lung Lobe, Percutaneous Approach, Diagnostic (ICD-10-PCS; principal; 2016-07-28)
DX: J95.811 Postprocedural pneumothorax (principal); E11.40 Type 2 diabetes mellitus with diabetic neuropathy, unspecified; E66.01 Morbid (severe) obesity due to excess calories; C34.12 Malignant neoplasm of upper lobe, left bronchus or lung; Z68.41 Body mass index [BMI] 40.0-44.9, adult; J44.9 Chronic obstructive pulmonary disease, unspecified; K21.9 Gastro-esophageal reflux disease without esophagitis; Z87.891 Personal history of nicotine dependence; G47.33 Obstructive sleep apnea (adult) (pediatric); Y83.8 Other surgical procedures as the cause of abnormal reaction of the patient, or of later complication, without mention of misadventure at the time of the procedure; Z79.01 Long term (current) use of anticoagulants; Z86.711 Personal history of pulmonary embolism; E78.5 Hyperlipidemia, unspecified; J45.909 Unspecified asthma, uncomplicated; B18.2 Chronic viral hepatitis C; F32.9 Major depressive disorder, single episode, unspecified; F41.9 Anxiety disorder, unspecified; I10 Essential (primary) hypertension; Z79.84 Long term (current) use of oral hypoglycemic drugs
CPT/HCPCS: CCU; 77012; 88305; 93005; 93010; 96374; J1650; J2270; J2405; J3490; J7042